=== PATIENT | male | born 1980 | race Caucasian/White ===

== ENCOUNTER 2018-08-15 16:53 | Outpatient (REF) | payer OTHER, SELFPAY ==
[2018-08-15 22:12] LABS: CREATININE 1.07 mg/dL (0.70-1.30)
== END 2018-08-15 17:13 ==
LOC: NCHCN 16:53
PROVIDERS: PCP Nurse Practitioner Family; Visit Provider Nurse Practitioner Family
DX: M54.6 Pain in thoracic spine (principal); I10 Essential (primary) hypertension; K30 Functional dyspepsia; G25.81 Restless legs syndrome; E66.9 Obesity, unspecified
CPT/HCPCS: 82565

== ENCOUNTER → 2020-09-13 10:10 | Outpatient (REF) | payer OTHER, SELFPAY ==
[2020-09-13 14:31] LABS: Hemoglobin A1C 5.7 % (<5.7)
[2020-09-13 14:44] LABS: ALT 188 U/L (16-63); AST 75 U/L (15-37); Albumin 4.2 g/dL (3.4-5.0); Alkaline Phosphatase 93 U/L (46-116); Anion Gap 11.5 mmol/L (3-11); BUN 17 mg/dL (7-18); Bilirubin, Total 0.6 mg/dL (0.2-1.0); CO2 29.5 mmol/L (21.0-32.0); CREATININE 0.95 mg/dL (0.70-1.30); Calcium 9.4 mg/dL (8.5-10.1); Calculated LDL 186 mg/dL (<100); Chloride 97 mmol/L (98-107); Cholesterol 232 mg/dL (<200); Glucose 97 mg/dL (74-106); HDL Cholesterol 25 mg/dL (40-60); Potassium 3.7 mmol/L (3.5-5.1); Sodium 138 mmol/L (136-145); Total Protein 7.8 g/dL (6.4-8.2); Triglyceride 109 mg/dL (<150)
[2020-09-15 14:30] LABS: HIV-1/2 Ag & Ab Screen Negative (Negative)
[2020-09-16 10:09] LABS: Hepatitis C Ab w Rflx HCV PCR Negative (Negative)
== END ==
LOC: NCHCN 10:10
PROVIDERS: PCP Nurse Practitioner Family; Visit Provider Nurse Practitioner Family
DX: R07.9 Chest pain, unspecified (principal); I10 Essential (primary) hypertension; K30 Functional dyspepsia; F41.8 Other specified anxiety disorders; G25.81 Restless legs syndrome; E66.9 Obesity, unspecified; Z11.4 Encounter for screening for human immunodeficiency virus [HIV]
CPT/HCPCS: 80053; 80061; 86803; 87389; 83036

== ENCOUNTER → 2020-09-19 13:57 | Outpatient (REF) | payer OTHER, SELFPAY ==
[2020-09-23 11:20] LABS: Hepatitis A Antibody IgM Negative (Negative); Hepatitis B Core Antibody Negative (Negative); Hepatitis B surface Ag Negative (Negative); Hepatitis C Ab w Rflx HCV PCR Negative (Negative)
== END ==
LOC: NCHCN 13:57
PROVIDERS: PCP Nurse Practitioner Family; Visit Provider Nurse Practitioner Family
DX: R79.89 Other specified abnormal findings of blood chemistry (principal)
CPT/HCPCS: 86704; 86709; 86803; 87340

== ENCOUNTER 2020-09-27 03:01 | Outpatient (CLI) | payer OTHER, SELFPAY ==
--- NOTE | 2020-09-27 | DI.US_ITS ---
EXAM: US ABDOMEN CLINICAL HISTORY: ELEVATED LFT'S,HYPERLIPIDEMIA,PREDIABETES,R79.89,E78.5 TECHNIQUE: Ultrasound of complete upper abdomen performed using standard protocol. COMPARISON: No exams were available for comparison FINDINGS: There is no ascites evident. LIVER: There is diffusely hyperechoic indicate fatty parenchymal changes as steatosis. There are no discrete focal hepatic lesions evident on these images. GALLBLADDER/BILIARY: There are no gallstones. No gallbladder wall edema nor pericholecystic fluid. The common hepatic duct isnot dilated, measuring 3-4mm at the level of gail hepatis. PANCREAS: There is no evidence of pancreatic mass nor dilatation of the pancreatic duct. SPLEEN: Spleen size is upper normal-minimally prominent, measuring 13 millimeters. No intrasplenic l esions noted. No perisplenic fluid. KIDNEYS:Kidneys exhibit normal size with no evidence of solid mass, calculus, nor hydronephrosis. No cortical cysts evident. ABDOMINAL AORTA: There is no evidence of abdominal aortic aneurysm. IVC: Normal diameter where visualized. IMPRESSION: 1. No evidence of cholelithiasis nor dilatation of the biliary tree. 2. Spleen size is upper normal-minimally prominent. 3. Hepatic steatosis. Correlation with appropriate hepatic blood work noted. There is no ascites. DATA REPOSITORY:
== END 2020-09-27 03:21 ==
PROVIDERS: PCP Nurse Practitioner Family; Visit Provider Nurse Practitioner Family
DX: K76.0 Fatty (change of) liver, not elsewhere classified (principal); E78.5 Hyperlipidemia, unspecified; R73.03 Prediabetes
CPT/HCPCS: 76700

== ENCOUNTER 2022-10-07 16:11 | Emergency (ER) | payer OTHER, SELFPAY ==
[2022-10-07 16:13] VITALS: BP 205/138; PULSE 104; RESP 17; TEMP 36.8; O2SAT 98
--- NOTE | 2022-10-07 16:15 | DI.RAD_ITS ---
Exam(s) XR SHOULDER RT COMPLETE 2+V EXAM: XR SHOULDER RT COMPLETE 2+V CLINICAL HISTORY: lateral pain. TECHNIQUE: 2D digital imaging was performed. COMPARISON: No exams were available for comparison FINDINGS: Four views: Glenohumeral joint is intact. No fracture or dislocation. No abnormal soft tissue calcifications in the subacromial space is normal. However, there is dislocation of the AC joint. No clavicle nor ac romial fracture. No incidental osseous lesions. IMPRESSION: Dislocated AC joint. Glenohumeral joint unremarkable. DATA REPOSITORY: RADIATION DOSE DELIVERED:
--- NOTE | 2022-10-07 16:15 | DI.RAD_ITS ---
Exam(s) XR RIBS RT W PA LAT CHEST EXAM: XR RIBS RT W PA LAT CHEST CLINICAL HISTORY: R anterior pain after fall TECHNIQUE: 2D digital imaging was performed. COMPARISON: No exams were available for comparison FINDINGS: RIBS 5 VIEWS-right There are no obvious acute rib fractures evident. No lytic rib lesions identified. Right AC joint d islocation. CXR- 2 VIEWS: No lung contusion or pneumothorax. There is no pleural effusion evident. Heart size is normal and there is no significant mediastinal widening. IMPRESSION: 1. No obvious rib fractures evident. Also no significant rib lesions. Right AC joint is dislocated. 2. No ipsilateral lung nor pleural abnormality evident. No pneumothorax. DATA REPOSITORY: RADIATION DOSE DELIVERED:
--- NOTE | 2022-10-07 16:25 | ED.GENADUL_ITS ---
Discharge Plan Disposition Patient Disposition: Home Condition: Improving Discharge Details Clinical Impression: Separation of right acromioclavicular joint, type 3 Primary Care Provider: Jessica Lynne ED Provider: Shimon Brink Home Meds and New Rx's Prescriptions: New hydrocodone-acetaminophen 5-325 mg tablet 1 tab PO Q8H PRN (Reason: pain) Qty: 7 0RF Rx Instructions: No alcohol, driving, or additional Tylenol with this medication Continued metoprolol succinate 100 mg tablet extended release 24 hr 1 tab PO DAILY Label Comments: TAKE 1 TABLET BY MOUTH EVERY DAY chlorthalidone 25 mg tablet 1 tab PO DAILY Label Comments: TAKE 1 TABLET BY MOUTH EVERY DAY omeprazole 20 mg capsule,delayed release(DR/EC) 1 cap PO DAILY Discharge Instructions Instructions: Shoulder Separation Exercises (GEN) Additional Instructions: Apply ice 20 minutes at a time to reduce pain and swelling. Wear sling while awake and out of bed. He may remove for sleeping and showering. See enclosed work note. We will refer you to the orthopedic clinic for follow-up. The office #[id number]. Continue ibuprofen as needed for pain with the provided hydrocodo ne/acetaminophen as needed for severe or breakthrough pain. You may substitute Tylenol instead of the hydrocodone. Return for any acute concern. Medical Decision Making This is a 42-year-old male who was snowboarding with his children yesterday, caught an edge and drove his right shoulder and chest to the ground. He did not have a loss of consciousness, he did continue to snowboard with some pain. He developed worsening pain and stiffness last night for which he has been taking Tylenol and ibuprofen. Now with right anterior/lateral shoulder pain and right anterior chest pain that is reproducible with palpation. Differential diagnosis includes contusion, fracture, sprain, must exclude pneumothorax. Patient referred for x-ray: Chest x-ray with rib views shows no acute bony fracture or other significant finding. Please see the formal report. X-ray of right shoulder shows grade 3 AC joint separation. Patient placed in sling. Counseled as to anticipated course of healing. I do question whether he may have partial rotator cuff injury as well. Will refer to orthopedics. He is consented for the use of a small number of narcotic analgesics. He is stable and appropriate for discharge to home. HPI General Mode of arrival: ambulatory . Date/Time Provider Initiated Documentation: 10/07/22 16:15 . Limitations to Documentation: no limitations . Information obtained by: patient . History of Present Illness 42 year old M presents to the emergency department with the chief complaint of Right shoulder and right anterior chest pain after snowboarding fall yester, described as moderate, Quality is described as dull and constant, and is localized to the right and upper extremity. Patient reports no radiation. Patient started experiencing this hour(s) and it has been constant. No relieving factors improve symptom(s), Movement worsens symptoms . Patient notes no other symptoms. and chest pain; denies headaches, shortness of breath, syncope and weakness. Patient did receive the following treatments prior to arrival, NSAID Related Data Home Medications Medication Instructions Recorded Confirmed chlorthalidone 25 mg tablet 1 tab PO DAILY 10/07/22 10/07/22 hydrocodone 5 mg-acetaminophen 325 1 tab PO Q8H PRN pain #7 tabs 10/07/22 mg tablet metoprolol succinate 100 mg 1 tab PO DAILY 10/07/22 10/07/22 tablet,extended release 24 hr omeprazole 20 mg capsule,delayed 1 cap PO DAILY 10/07/22 10/07/22 release Previous Rx's Medication Instructions Recorded hydrocodone 5 mg-acetaminophen 325 1 tab PO Q8H PRN pain #7 tabs 10/07/22 mg tablet Allergies Allergy/AdvReac Type Severity Reaction Status Date / Time Penicillins Allergy Mild Hives Unverified 10/07/22 16:18 General Stated Complaint: Orthopedic EFRAIN: 3 Review of Systems Narrative: 8 systems reviewed and otherwise negative PFSH All Active Problems (Updated 10/07/22 @ 17:53 by Shimon Brink MD) Separation of right acromioclavicular joint, type 3 (Acute) Social History Smoking/Tobacco Use Status: Never Smoking risk assessment performed?: Yes Alcohol Intake: current Alcohol Intake frequency: a few times a month Drug use: Daily Substance use type: marijuana Do you feel safe in your relationship?: Yes Exam Narrative Exam Narrative: GEN: awake, alert, oriented 3. Pleasant, well groomed, interactive. HEAD: Normocephalic, atraumatic ENT: Mucous membranes moist, oropharynx unremarkable, External ear exam unremarkable EYES: PERRL, EOMI NECK: Full ROM, no RONAK, no menigismus CHEST/RESP: Right anterior tenderness to palpation, no crepitus, clear to auscultation bilateral, no wheeze/rhonchi/rales CARDIOVASCULAR: RRR, no murmur, rub aracely. 2+ Rad pulse bilateral ABDOMEN: Soft, nontender, no mass. +Bowel sounds EXT: Full ROM, pain with full arm extension and AB duction laterally on the right. Pain is at the supraspinatus. Pain with palpation right AC joint. Left upper extremity unremarkable Neuro: Grossly normal neurologic exam, conversant, interactive. Psych: Speech fluent, thoughts congruent, affect normal Course Vital Signs Vital signs: Vital Signs Temperature 36.8 C 10/07/22 16:13 Pulse 104 H 10/07/22 16:13 Respiratory Rate 17 10/07/22 16:13 Blood Pressure 205/138 H 10/07/22 16:13 Pulse Oximetry 98 10/07/22 16:13 Temperature 36.8 C 10/07/22 16:13 Temperature Source Tympanic 10/07/22 16:13 Pulse 104 H 10/07/22 16:13 Respiratory Rate 17 10/07/22 16:13 Respiratory Effort 10/07/22 16:16 Blood Pressure 205/138 H 10/07/22 16:13 Blood Pressure Position Sitting 10/07/22 16:13 Pulse Oximetry 98 10/07/22 16:13 Oxygen Delivery Method Room Air 10/07/22 16:13 Oxygen Flow Rate 0 10/07/22 16:13 Pain Level 8 10/07/22 16:21 PAWSS Have you Been Recently Intoxicated or Drunk Within the Last 30 days?: No Have you Ever Experienced Previous Episodes of Alcohol Withdrawal?: No Have you ever Experienced Withdrawal Seizures?: No Have you ever Experienced Delirium Tremens(DT)s?: No Have you ever undergone Alcohol Rehabilitation Treatment (i.e, inpt ot outpa tient treatment programs)?: No Have you ever Experienced Blackouts?: No Have you ever Combined Alcohol with other Downers within the last 90 days?: No Have you ever Combined Alcohol with any other Substance of Abuse during the last 90 days?: No Result: 0
--- NOTE | 2022-10-07 17:29 | DI.VRAD_ITS ---
Addendum created by Samantha Arellano MD on 10/07/2022 6:22:29 PM EST: Title of the ribs examination should be: XR Right Ribs , 4 images were obtained. Initial report created on 10/07/2022 5:28:59 PM EST: PROCEDURE INFORMATION: Exam: XR Left Ribs Exam date and time: 10/07/2022 4:42 PM Clinical indication: Injury or trauma; Blunt trauma (contusions or hematomas); Injury date: 10/07/2022; Injury details: PT states he fell snowboarding TECHNIQUE: Imaging protocol: Radiologic exam of the Left ribs. Views: 2 views. COMPARISON: No relevant prior studies available. FINDINGS: Bones/joints: No acute fracture. Soft tissues: No large subcutaneous soft tissue abnormality seen. IMPRESSION: No acute findings. PROCEDURE INFORMATION: Exam: XR Chest Exam date and time: 10/07/2022 4:42 PM Age: 42 years old Clinical indication: Injury or trauma; Blunt trauma (contusions or hematomas); Injury date: 10/07/2022; Injury details: PT states he fell snowboarding TECHNIQUE: Imaging protocol: Radiologic exam of the chest. Views: 2 views. COMPARISON: No relevant prior studies available. FINDINGS: Lungs: Unremarkable. No consolidation. Pleural spaces: Unremarkable. No pleural effusion. No pneumothorax. Heart/Mediastinum: Unremarkable. No cardiomegaly. Bones/joints: Unremarkable. IMPRESSION: No acute findings. Dictated and Authenticated by: Samantha Arellano MD. Ordering:ELISE Robins MD
--- NOTE | 2022-10-07 17:45 | DI.VRAD_ITS ---
PROCEDURE INFORMATION: Exam: XR Right Shoulder Exam date and time: 10/07/2022 4:45 PM Age: 42 years old Clinical indication: Injury or trauma; Blunt trauma (contusions or hematomas); Shoulder; Right; Injury date: 10/07/2022; Injury details: PT states he fell snowboarding TECHNIQUE: Imaging protocol: Radiologic exam of the Right shoulder. Views: 2 or more views. COMPARISON: CR XR RIBS RT PA CHEST 3V 10/07/2022 4:42 PM FINDINGS: Bones/joints: There is dislocation of the acromioclavicular joint with superior displacement of the distal clavicle. These findings suggest likely injury to the acromioclavicular and coracoclavicular ligaments (type III injury). There is widening at the acromioclavicular joint measuring approximally 12 mm. No acute fracture. The glenohumeral joint is intact without dislocation. Soft tissues: Edema noted in the supraclavicular region. IMPRESSION: 1. Acromioclavicular joint dislocation as described (type III injury). 2. The glenohumeral joint is intact. 3. No acute fracture. Dictated and Authenticated by: Samantha Arellano MD. Ordering:ELISE Robins MD
[2022-10-07 18:01] VITALS: BP 187/132; PULSE 102; RESP 15; O2SAT 92
--- NOTE | 2022-10-19 11:03 | NUR.NOTE ---
Nursing Note: Patient called asking if he could come in to the ED to get a return to work note for today. He has a shoulder separation. Called [facility] and they stated that he was a no show for his first appt, and that he is on the schedule for this Wed. I called the patient back and told him that he can come in to the ED and we would evaluate him and determine the return to work, he can call his PCP, and he could also go to [facility]. He is aware.
== END 2022-10-07 18:07 | disposition home or self-care (01) ==
PROVIDERS: Emergency Provider Emergency Medicine; PCP Nurse Practitioner Family
DX: S43.101A Unspecified dislocation of right acromioclavicular joint, initial encounter (principal); V00.311A Fall from snowboard, initial encounter; R07.89 Other chest pain
CPT/HCPCS: 99284; 71046; 71100; 73030

== ENCOUNTER 2022-10-21 11:50 | Outpatient (CLI) | payer OTHER, SELFPAY ==
--- NOTE | 2022-10-21 11:30 | DI.RAD_ITS ---
Exam(s) XR CLAVICLE RT EXAM: XR CLAVICLE RT CLINICAL HISTORY: separation of right acromioclavicular joint f/u TECHNIQUE: 2D digital imaging was performed of the right clavicle. Two images were obtained. AP and axial views were obtained. COMPARISON: CR,XR XR SHOULDER RT COMPLETE 2+V from 10/07/2022 FINDINGS: BONES: No acute fracture is present. No bony destructive lesion is seen. JOINTS: There is a persistent right AC joint separation. Degenerative changes are seen at the acromi oclavicular joint. SOFT TISSUE: Normal IMPRESSION: Persistent right AC joint separation. DATA REPOSITORY: RADIATION DOSE DELIVERED:
== END 2022-10-21 11:51 | disposition home or self-care (01) ==
LOC: DIORS 11:50
PROVIDERS: PCP Nurse Practitioner Family; Referring Provider Nurse Practitioner Family; Visit Provider Student in an Organized Health Care Education/Training Program
DX: S43.151A Posterior dislocation of right acromioclavicular joint, initial encounter (principal); X58.XXXA Exposure to other specified factors, initial encounter
CPT/HCPCS: 73000

== ENCOUNTER 2023-04-18 08:32 | Emergency (ER) | payer SELFPAY ==
[2023-04-18 08:38] VITALS: BP 212/109; PULSE 108; RESP 18; TEMP 36.7; O2SAT 97
--- NOTE | 2023-04-18 09:00 | DI.CT_ITS ---
Exam(s) CT UPPER EXTREMITY LT W EXAM: CT UPPER EXTREMITY LT W CLINICAL HISTORY: left forearm dog bite, induranted, purulent, 10 da TECHNIQUE: Imaging Protocol: Axial computed tomography images with coronal and sagittal reformatted images were created and reviewed. CONTRAST MATERIAL: Intravenous: Omnipaque 350 Contrast volume:structured data in ml Contrast route:I V - Oral: yes / no COMPARISON: No exams were available for comparison FINDINGS: SOFT TISSUES: There is subcutaneous edema in the forearm, most prominent dorsally. There is also an area of skin irregularity which is probably the site of the dog bite. No calcification nor other rad iopaque foreign body evident at this level no formed abscess at this level. There is deep fluid between the muscle layers of the distal volar forearm, proximal to the wrist. Th is measures approximately 3 cm wide by 0.7 cm thick. There does not appear to be rim enhancement of this fluid and there is no gas at this level nor elsewhere in the soft tissues. Nevertheless cannot exclude abscess at this level. This is remote from the bite area which is on the dorsal aspect of th e forearm. IMPRESSION: There is skin irregularity and abundant subcutaneous edema in the dorsal forearm, consistent with dog bite as per history. There is no radiopaque foreign body at this level nor elsewhere in the forearm . There is a 3 x 0.7 cm myofascial level fluid collection between deep muscle layers in the volar dista l forearm. Although there is no rim enhancement of this collection nor gas therein, the possibility of abscess at this level is a consideration close follow-up is recommended. No fractures and no evidence of osteomyelitis. RADIATION DOSE DELIVERED: 338.57mGy.cm Total DLP DATA REPOSITORY: All CT scans at this facility are submitted to the National Radiology Data Registry (NRDR) Dose Index Registry (DIR) with the [employer] (A[employer]). RADIATION OPTIMIZATION: All CT scans at this facility use at least one of these dose optimization te chniques: automated exposure control; mA and/or kV adjustment per patient size (includes targeted exa ms where dose is matched to clinical indication); or iterative reconstruction.
[2023-04-18 09:35] LABS: Abs Immature Grans 0.05 10^3/uL (0.0-0.06); Absolute Basophil Count 0.05 10^3/uL (0.0-0.2); Absolute Eosinophil Count 0.06 10^3/uL (0.0-0.7); Absolute Lymphocyte Count 1.64 10^3/uL (1.2-3.4); Absolute Monocyte Count 0.62 10^3/uL (0.1-0.8); Absolute Neutrophil Count 5.84 10^3/uL (1.2-6.7); Basophils % 0.6; Eosinophils % 0.7; HCT 39.5 % (40.0-50.0); HGB 13.4 g/dL (13.5-17.5); Immature Grans % 0.6; Lactate 0.9 mmol/L (0.6-1.4); Lymphocytes % 19.9; MCH 29.1 pg (27.0-33.0); MCHC 33.9 % (32.0-36.0); MCV 86 fL (80-95); MPV 9.4 fL (8.0-11.0); Monocytes % 7.5; Neutrophils % 70.7; Platelet Count 355 10^3/uL (130-400); RDW 12.1 % (11.8-14.1); RDW-SD 38.3 fL; WBC 8.26 10^3/uL (4.4-10.8)
[2023-04-18] MEDS: Omnipaque 350 MG/ML 100 ML BTL IJ (09:37)
--- NOTE | 2023-04-18 09:37 | ED.GENADUL_ITS ---
Discharge Plan Disposition Patient Disposition: Against Medical Advice Discharge Details Clinical Impression: Abscess, Cellulitis, Dog bite Primary Care Provider: Jessica Lynne ED Provider: Bri Rosenbaum Home Meds and New Rx's Prescriptions: New cefuroxime axetil 500 mg tablet 500 mg PO Q12H Qty: 20 0RF metronidazole 500 mg tablet 500 mg PO Q8H Qty: 30 0RF Continued metoprolol succinate 100 mg tablet extended release 24 hr 1 tab PO DAILY Patient Comments: TAKE 1 TABLET BY MOUTH EVERY DAY chlorthalidone 25 mg tablet 1 tab PO DAILY Patient Comments: TAKE 1 TABLET BY MOUTH EVERY DAY omeprazole 20 mg capsule,delayed release(DR/EC) 1 cap PO DAILY hydrocodone-acetaminophen 5-325 mg tablet 1 tab PO Q8H PRN (Reason: pain) Qty: 7 0RF Rx Instructions: No alcohol, driving, or additional Tylenol with this medication Discharge Instructions Instructions: Animal Bite (ED), Cellulitis (ED), Abscess (ED) Additional Instructions: You are leaving against our medical recommendation, please take the cefuroxime and Flagyl as prescribed, I do recommend admission and surgical reassessment Please return at your earliest ability Referrals: Jessica Lynne [Primary Care Provider] - Discharge Data Discharge Date/Time-TO BE ENTERED AT DEPARTURE: 04/18/23 11:36 Medical Decision Making This 43-year-old gentleman presents 10 days post dog bite, he broke up a dog fight between his 2 dogs were vaccinated He states he is concerned as the wounds are not healing and they are more tender and firm He also does not have insurance and this is his primary concern Secondary to the injuries and his exam, I did order CT which shows evidence 3 cm abscess over the volar aspect over the area of significant tenderness, mild decreased range of motion Recommendation for admission to the hospital, consultation with Dr. Herrera, orthopedist he recommends medicine admission with surgical consultation I talked to patient about admission, he has declined, he states he has too much going on in his life and is unable to stay at this time, he tells me he will return in 4 hours for readmission He is aware that he is at risk for losing his extremity and becoming significantly more ill Blood cultures are pending Wound cultures pending Secondary to Pasteurella risk, cefuroxime and Flagyl were initiated as patient does have penicillin allergy Dressings were applied, tetanus is up-to-date Patient is aware he is leaving AGAINST MEDICAL ADVICE, he is fully alert, oriented, of decisional capacity Diagnostic labs are reassuring, CRP of 2, no leukocytosis Medical Records Medical records reviewed: Yes I reviewed the patient's medical records. Lab Data Lab results reviewed: Yes I reviewed the patient's lab results. HPI General Date/Time Provider Initiated Documentation: 04/18/23 08:55 . HPI Narrative: This 43-year-old male presents with report of dog bite 10 days prior to arrival. States that he has not received medical care secondary to lack of insurance. He states become progressively more painful. He denies any fever or chills. Denies any shortness of breath. Denies any fever. States that he is concerned there may be tendon involvement as he thought he saw a tendon overlying his flexor surface adjacent to his fifth digit on his hand. He states that his tetanus is up-to-date. He does state he took an unknown antibiotic for 3 days that he had at home but has not taken it for approximately 7 days. Related Data Home Medications Medication Instructions Recorded Confirmed chlorthalidone 25 mg tablet 1 tab PO DAILY 10/07/22 10/21/22 hydrocodone 5 mg-acetaminophen 325 1 tab PO Q8H PRN pain #7 tabs 10/07/22 10/21/22 mg tablet metoprolol succinate 100 mg 1 tab PO DAILY 10/07/22 10/21/22 tablet,extended release 24 hr omeprazole 20 mg capsule,delayed 1 cap PO DAILY 10/07/22 10/21/22 release cefuroxime axetil 500 mg tablet 500 mg PO Q12H #20 tabs 04/18/23 metronidazole 500 mg tablet 500 mg PO Q8H #30 tabs 04/18/23 Previous Rx's Medication Instructions Recorded hydrocodone 5 mg-acetaminophen 325 1 tab PO Q8H PRN pain #7 tabs 10/07/22 mg tablet cefuroxime axetil 500 mg tablet 500 mg PO Q12H #20 tabs 04/18/23 metronidazole 500 mg tablet 500 mg PO Q8H #30 tabs 04/18/23 Allergies Allergy/AdvReac Type Severity Reaction Status Date / Time Penicillins Allergy Mild Hives Unverified 10/21/22 11:40 General Stated Complaint: Laceration EFRAIN: 3 PFSH All Active Problems (Updated 04/18/23 @ 11:11 by SHONA Mendez) Abscess (Acute) Cellulitis (Acute) Dog bite (Acute) No-show for appointment (Acute) Social History Smoking/Tobacco Use Status: Never Smoking risk assessment performed?: Yes Alcohol Intake: current Alcohol Intake frequency: a few times a month Drug use: Occasionally Substance use type: marijuana and crack/cocaine Current gender identity: male Do you feel safe at home: Yes Do you feel safe in your relationship?: Yes Exam Extrem Elbow/forearm/wrist images: 1. 1 inch laceration 2. 3 inch laceration, purulent drainage, erythema, inudration 3. 5 inch laceration, induration, erythema 4. 1 inch laceration , 4 inches of induration and tenderness Other: distal pulses,strength and sensation intact Course Vital Signs Vital signs: Vital Signs Temperature 36.7 C 04/18/23 08:38 Pulse 108 H 04/18/23 08:38 Respiratory Rate 18 04/18/23 08:38 Blood Pressure 212/109 H 04/18/23 08:38 Pulse Oximetry 97 04/18/23 08:38 Temperature 36.7 C 04/18/23 08:38 Temperature Source Temporal Artery Scan 04/18/23 08:38 Pulse 108 H 04/18/23 08:38 Respiratory Rate 18 04/18/23 08:38 Blood Pressure 212/109 H 04/18/23 08:38 Blood Pressure Position Sitting 04/18/23 08:38 Pulse Oximetry 97 04/18/23 08:38 Oxygen Delivery Method Room Air 04/18/23 08:38 Oxygen Flow Rate 0 04/18/23 08:38 Lab/Test Results Lab/Test Results: 04/18/23 09:28 Blood Blood Culture - Pending 04/18/23 09:08 Blood Blood Culture - Pending
[2023-04-18] MEDS: Normal Saline Flush 10 ML SYR IVP (09:40)
[2023-04-18] MEDS: Normal Saline - Diluent 50 ML VIAL IJ (09:40)
[2023-04-18 09:54] LABS: ALT 63 U/L (16-63); AST 41 U/L (15-37); Albumin 3.7 g/dL (3.4-5.0); Alkaline Phosphatase 100 U/L (46-116); Anion Gap 11.8 mmol/L (3-11); BUN 15 mg/dL (7-18); Bilirubin, Total 0.9 mg/dL (0.2-1.0); C-Reactive Protein 2.01 mg/dL (0.0-0.3); CO2 27.2 mmol/L (21.0-32.0); Calcium 9.1 mg/dL (8.5-10.1); Chloride 103 mmol/L (98-107); Estimated GFR 96.97 (mL/min/1.73m2); Glucose 197 mg/dL (74-106); Potassium 3.4 mmol/L (3.5-5.1); Sodium 142 mmol/L (136-145); Total Protein 7.8 g/dL (6.4-8.2)
[2023-04-18] MEDS: Valsartan 80 MG TAB 160 MG PO (10:05)
[2023-04-18] MEDS: Chlorthalidone 25 MG TAB PO (10:05)
--- NOTE | 2023-04-18 10:22 | DI.VRAD_ITS ---
PROCEDURE INFORMATION: Exam: CT Left Upper Extremity With Contrast, Forearm Exam date and time: 04/18/2023 9:44 AM Age: 43 years old Clinical indication: Other: Left forearm dog bite, induranted, purulent, 10 da TECHNIQUE: Imaging protocol: Computed tomography of the left upper extremity with contrast. Exam focused on the forearm. Radiation optimization: All CT scans at this facility use at least one of these dose optimization techniques: automated exposure control; mA and/or kV adjustment per patient size (includes targeted exams where dose is matched to clinical indication); or iterative reconstruction. Contrast material: OMNIPAQUE 350; Contrast volume: 100 ml; Contrast route: INTRAVENOUS (IV); COMPARISON: No relevant prior studies available. 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 Heterotopic ossification adjacent to the lateral joint line is likely due to sequelae of chronic injury and lateral epicondylitis. Soft tissues: Stubcutaneous edema about the forearm, most marked dorsal to the ulna. Skin irregularity and cutaneous edema of the dorsal aspect of the distal forearm. This would be consistent with the history of dog bite. There is dense subcutaneous edema deep to the area of skin irregularity but no subcutaneous fluid collection is identified. Myofascial fluid which is non loculated and located superficial to the flexor indices tendons and muscles at the myotendinous junction, proximal to the carpal tunnel in the distal forearm. This is on the volar aspect of the distal forearm. This is not have a peripherally enhancing wall but could be due to a developing abscess. It measures approximately 3 by 4 by 1 cm in craniocaudad, transverse, and AP dimension. See axial series 2, images 114 through 125, coronal series 6 images 24-27. This is remote from the cutaneous abnormality in the region of the original injury. IMPRESSION: 1. Skin irregularity and subcutaneous edema in the dorsal distal forearm consistent with history of dog bite 2. 3 cm loculated myofascial fluid collection superficial to the flexor indices tendons on the volar aspect of the forearm could be a developing abscess and should be correlated with clinical scenario. THIS REPORT CONTAINS FINDINGS THAT MAY BE CRITICAL TO PATIENT CARE. The findings were verbally communicated via telephone conference with Dr. Walter at 10:20 AM EDT on 04/18/2023. The findings were acknowledged and understood. Dictated and Authenticated by: Ro Gunderson MD. Ordering:AYLIN Gregory MD
[2023-04-18] MEDS: metroNIDAZOLE 500 MG TAB PO (11:19)
[2023-04-18] MEDS: Cefuroxime 500 MG TAB PO (11:19)
[2023-04-18 11:34] VITALS: BP 169/130; PULSE 99; RESP 14; TEMP 36.4; O2SAT 96
--- NOTE | 2023-04-18 11:37 | NUR.NOTE ---
Nursing Note: Per MD order, pt's lacerations cleansed with impregnated scrub sponge and rinsed with sterile NS. Bacitracin applied to lacerations after wounds were cleaned. Non-adherent telfa gauze applied to lacerations. Telfa gauze pads secured in place with a gauze wrap; gauze wrap secured with tape. Pt denied pain, numbness or tingling s/p application of dressing.
--- NOTE | 2023-04-19 11:39 | W.ED.FU ---
Follow Up Plan: Patient notified regarding MRSA positive wound culture, of note patient has left this facility twice and they in a single day Will need to switch antibiotics after review of [facility] guide to doxycycline and Flagyl, cefuroxime will be discontinued Patient made aware, very argumentative on the phone, prescription sent to pharmacy
--- NOTE | 2023-04-20 13:23 | NUR.NOTE ---
04/20/23 1320 spoke with Francisco Jeong, health officer for [place]. Fax machine at [facility] not working but was emailed to him at: [email or web address] He will follow up. Nursing Note:
== END 2023-04-18 11:36 | disposition left against medical advice (07) ==
PROVIDERS: Emergency Provider Physician Assistant; PCP Nurse Practitioner Family
DX: S51.852A Open bite of left forearm, initial encounter (principal); L03.114 Cellulitis of left upper limb; A49.02 Methicillin resistant Staphylococcus aureus infection, unspecified site; L02.414 Cutaneous abscess of left upper limb; Z53.29 Procedure and treatment not carried out because of patient's decision for other reasons; W54.0XXA Bitten by dog, initial encounter; Y93.K9 Activity, other involving animal care; Y92.89 Other specified places as the place of occurrence of the external cause; Y99.9 Unspecified external cause status
CPT/HCPCS: 36415; 80053; 87040; 87077; 99285; 73201; 83605; 85025; 86140; 87070; 87186; 87205; 99283; J3490

== ENCOUNTER 2023-04-18 20:58 | Inpatient (IN) | payer SELFPAY ==
[2023-04-18 21:01] VITALS: BP 184/109; PULSE 97; RESP 16; TEMP 36.4; O2SAT 98
[2023-04-18] MEDS: CLINDAMYCIN 600 MG/50 ML BAG 100 MG IVPB (21:21)
--- NOTE | 2023-04-18 21:21 | ED.GENADUL_ITS ---
Discharge Plan Disposition Patient Disposition: Admit to [facility] Discharge Details Clinical Impression: Hypertension, Dog bite of left forearm with infection, Cellulitis of left forearm, Abscess of left forearm Admit Date/Time: 04/18/23 21:25 Admit Provider: Teresita Matthews Attending Provider: Teresita Matthews Primary Care Provider: Jessica Lynne ED Provider: Cj Martell Medical Decision Making Patient presenting to the emergency department for admission for dog bite to left upper extremity. Patient was seen in the emergency department earlier today and had labs, wound culture, and blood cultures all performed along with CT imaging of the forearm. There was a abscess that was viewed and the on-call orthopedist recommended admission with IV antibiotics and surgical consult tomorrow. Patient could not be admitted at that time and left AGAINST MEDICAL ADVICE but is now returning for admission. Patient denies any change in condition. Physical exam shows significant lacerations with erythema and purulent drainage to the left forearm. Patient has full range of motion of left forearm but does have significant tenderness with any movement of wrist or rotation. Pulse and sensation is intact exam is otherwise nondiagnostic. Patient stated he got antibiotic earlier in the day but has not taken anything since. Patient was started on clindamycin and Cipro pending cultures. Given plan was already established I did contact hospitalist Dr. Matthews who agreed to admit patient. Medical Records Medical records reviewed: Yes I reviewed the patient's medical records. Medical records narrative: Reviewed previous emergency department visit Lab Data Lab results reviewed: Yes I reviewed the patient's lab results. HPI General Mode of arrival: ambulatory . Date/Time Provider Initiated Documentation: 04/18/23 20:59 . Limitations to Documentation: no limitations . Information obtained by: patient, RN notes reviewed and old records reviewed . History of Present Illness 43 year old M presents to the emergency department with the chief complaint of Left arm infection, described as severe, Patient started experiencing this day(s) (10) and it has been constant. No relieving factors improve symptom(s), No exacerbating factors reported . Patient notes no other symptoms.. Related Data Home Medications Medication Instructions Recorded Confirmed chlorthalidone 25 mg tablet 1 tab PO DAILY 10/07/22 04/18/23 hydrocodone 5 mg-acetaminophen 325 1 tab PO Q8H PRN pain #7 tabs 10/07/22 10/21/22 mg tablet metoprolol succinate 100 mg 1 tab PO DAILY 10/07/22 10/21/22 tablet,extended release 24 hr omeprazole 20 mg capsule,delayed 1 cap PO DAILY 10/07/22 10/21/22 release cefuroxime axetil 500 mg tablet 500 mg PO Q12H #20 tabs 04/18/23 metronidazole 500 mg tablet 500 mg PO Q8H #30 tabs 04/18/23 valsartan 160 mg tablet mg 04/18/23 04/18/23 Previous Rx's Medication Instructions Recorded hydrocodone 5 mg-acetaminophen 325 1 tab PO Q8H PRN pain #7 tabs 10/07/22 mg tablet cefuroxime axetil 500 mg tablet 500 mg PO Q12H #20 tabs 04/18/23 metronidazole 500 mg tablet 500 mg PO Q8H #30 tabs 04/18/23 Allergies Allergy/AdvReac Type Severity Reaction Status Date / Time Penicillins Allergy Mild Hives Unverified 10/21/22 11:40 General Stated Complaint: AnimalBite EFRAIN: 3 Review of Systems Constitutional Constitutional: Denies chills and Denies fever(s) Musculoskeletal Musculoskeletal: Reports as per HPI, Reports joint swelling, Reports limited range of motion, Denies numbness and Denies tingling Integumentary/Breasts Skin/Breast: Reports as per HPI Neurologic Neurologic: Denies numbness and Denies tingling PFSH All Active Problems Discharge planning issues (Acute) DVT prophylaxis (Acute) Obesity, morbid, BMI 40.0-49.9 (Acute) GERD (gastroesophageal reflux disease) (Chronic) Hypertension (Chronic) Hypokalemia (Acute) Abscess of left forearm (Acute) Dog bite of left forearm with infection (Acute) Cellulitis of left forearm (Acute) Abscess (Acute) Cellulitis (Acute) Dog bite (Acute) No-show for appointment (Acute) Social History Smoking/Tobacco Use Status: Never Smoking risk assessment performed?: Yes Alcohol Intake: current Alcohol Intake frequency: a few times a month Drug use: Occasionally Substance use type: marijuana and crack/cocaine Housing: house Current gender identity: male Do you feel safe at home: Yes Do you feel safe in your relationship?: Yes Exam Const General: cooperative, no acute distress and not ill appearing Orientation: alert, awake and oriented x3 HENMT Mouth: moist mucous membranes Resp Effort & Inspection: normal respiratory effort, able to speak in complete sentences and no respiratory distress Cardio Rate: regular rate Rhythm: regular rhythm Pulses: normal peripheral pulses Neuro General: patient alert, patient awake, patient oriented x3, moves all extremities and no focal motor deficits Sensory Exam: no sensory deficits noted Extrem General: normal exam except as noted Left upper extremity: elbow/forearm Details: abnormal ROM Details: pain with active ROM and pain with passive ROM, laceration and distal pulses intact Course Vital Signs Vital signs: Vital Signs Temperature 36.4 C L 04/18/23 21:01 Pulse 97 H 04/18/23 21:01 Respiratory Rate 16 04/18/23 21:01 Blood Pressure 184/109 H 04/18/23 21:01 Pulse Oximetry 98 04/18/23 21:01 Temperature 36.4 C L 04/18/23 21:01 Temperature Source Temporal Artery Scan 04/18/23 21:01 Pulse 97 H 04/18/23 21:01 Respiratory Rate 16 04/18/23 21:01 Respiratory Effort Normal 04/18/23 21:05 Blood Pressure 184/109 H 04/18/23 21:01 Pulse Oximetry 98 04/18/23 21:01 Oxygen Delivery Method Room Air 04/18/23 21:01 Oxygen Flow Rate 0 04/18/23 21:01 Pain Level 7 04/18/23 21:01
--- NOTE | 2023-04-18 21:32 | W.PM.HP.N ---
Date of service: 04/18/23 Time of Service: 21:33 Assessment and Plan Assessment and plan (1) Dog bite of left forearm with infection: Status: Acute Assessment and plan: Treat with cipro/clindamycin. C/s orthopedics. NPO after midnight for a possible surgical intervention. (2) Cellulitis of left forearm: Status: Acute Assessment and plan: As above (3) Abscess of left forearm: Status: Acute Assessment and plan: As above (4) Hypokalemia: Status: Acute Assessment and plan: recheck labs; check magnesium (5) Hypertension: Status: Chronic Assessment and plan: Continue outpatient valsartan and chlorthalidone. The patient states that [facility] had taken him off of metoprolol when he was being treated there for a lung infection. He does not know why. I suspect that this could be due to his h/o use of crack cocaine. His last BP is 145/95, but earlier today his BPs were as high as 212/109. Will monitor BPs. Consider addition of a 3rd agent such as a potassium sparing diuretic, given concomittent hypokalemia. (6) DVT prophylaxis: Status: Acute Assessment and plan: SCDS in anticipate of a surgical procedure tomorrow (7) Discharge planning issues: Status: Acute Assessment and plan: DNR/DNI as per my conversation with the patient witnessed by nursing. History of Present Illness History of Present Illness Chief Complaint: Dog bite 10 days ago Narrative: Mr Shaikh is a 43 year old right-handed male with PMHx of hypertension, GERD, obesity with BMI of 40 kg/m2, who had been evaluated at our ED earlier today for a dog bite to his left forearm 10 days ago (occured while trying to separate a dog fight), was found to have a likely abscess (3 x 0.7 cm myofascial fluid collection between deep muscles layers in the volar forearm), but had left AMA, who now returns to the ED and is in agreement with the recommended admission for IV antibiotics and surgical intervention. The patient denies f/c, loss of sensation, paresthesias, changes to ROM. He thinks he may have seen an exposed tendon in the forearm. He denies trying to clean out the wounds with any instrument himself. Denies IVD use. The dogs were vaccinated, he states, and are finishing their 10 day quarantine and testing for rabies today. He does not know the result of the testing. Due to his penicillin allergy (which he cannot confirm), he was started on ciprofloxacin and clindamycin. Orthopedic consultation was sought, recommending a medicine admission with a surgical consult in am. Hospitalist admission was requested. Review of Systems All systems reviewed & are unremarkable except as noted in HPI and below PFSH All Active Problems (Updated 04/18/23 @ 23:09 by Teresita Matthews MD) Discharge planning issues (Acute) DVT prophylaxis (Acute) Obesity, morbid, BMI 40.0-49.9 (Acute) GERD (gastroesophageal reflux disease) (Chronic) Hypertension (Chronic) Hypokalemia (Acute) Abscess of left forearm (Acute) Dog bite of left forearm with infection (Acute) Cellulitis of left forearm (Acute) Abscess (Acute) Cellulitis (Acute) Dog bite (Acute) No-show for appointment (Acute) Medical History (Updated 04/18/23 @ 23:09 by Teresita Matthews MD) Pneumonia Surgical History (Updated 04/18/23 @ 23:09 by Teresita Matthews MD) S/P tendon repair 3rd digit RUE Family History (Updated 04/18/23 @ 23:09 by Teresita Matthews MD) Mother Hypertension Father Hypertension Social History (Updated 04/18/23 @ 23:06 by Teresita Matthews MD) Smoking/Tobacco Use Status: Never Smoking risk assessment performed?: Yes Alcohol Intake: current Alcohol Intake frequency: 0-2 drinks per day Alcohol type: beer Drug use: Occasionally Substance use type: marijuana and crack/cocaine Details: States he no longer uses Housing: house Current gender identity: male Do you feel safe at home: Yes Do you feel safe in your relationship?: Yes Meds Allergies and Home Medications Allergies Allergy/AdvReac Type Severity Reaction Status Date / Time Penicillins Allergy Mild Unverified 04/18/23 23:02 Home Medications Medication Instructions Recorded Confirmed Type chlorthalidone 25 mg tablet 1 tab PO DAILY 10/07/22 04/18/23 History cefuroxime axetil 500 mg tablet 500 mg PO Q12H #20 tabs 04/18/23 Rx metronidazole 500 mg tablet 500 mg PO Q8H #30 tabs 04/18/23 Rx valsartan 160 mg tablet 160 mg PO DAILY 04/18/23 04/18/23 History Exam Narrative Exam Narrative: General: Jittery middle-aged male who is non-toxic appearing, A&Ox3, laying comfortably in bed Neurological: A&Ox3, no focal deficits, sensation to LUE intact Psychiatric: impulsive, mildly anxious Skin: L forearm with mild erythema, three longitudinal wounds, the more distal of which is expressing purulent discharge, and the proximal is about 1 cm wide with exposed fatty tissue underneat. There are two smaller wounds which have closed up. HEENT: Atraumatic, normocephalic, EOMI, MMM, clear oropharynx, no submandibular or cervical lymphadenopathy, no goiter or JVD Cardiovascular: RRR, tachycardic, no m/r/g Lungs: CTAB Gastrointestinal: soft, nontender, nondistended Genitourinary: deferred Extremities: no edema BLEs, see LUE exam above, no c/c. Results Imaging Additional studies: CT LUE w/ contrast: There is skin irregularity and abundant subcutaneous edema in the dorsal forearm, consistent with dog bite as per history.? There is no radiopaque foreign body at this level nor elsewhere in the forearm.? There is a 3 x 0.7 cm myofascial level fluid collection between deep muscle layers in the volar distal forearm.? Although there is no rim enhancement of this collection nor gas therein, the possibility of abscess at this level is a consideration close follow-up is recommended. No fractures and no evidence of osteomyelitis. Labs 04/18/23 21:45 Last Vital Signs Temp 36.4 C L 04/18/23 21:01 Pulse 97 H 04/18/23 21:01 Resp 16 04/18/23 21:01 BP 184/109 H 04/18/23 21:01 Pulse Ox 98 04/18/23 21:01 Time Spent Time spent with Patient: 40-54 minutes Time was spent: preparing to see the patient(eg.review tests), obtaining and/or reviewing separately otained hiistory, ordering medications,tests, procedures, referring, communicating with other health neonatal intensive care nurse, indepentently interpreting results, counseling the patient and care coordination
[2023-04-18] MEDS: CIPROFLOXACIN 400 MG/200 ML BAG 200 MG IVPB (21:56)
[2023-04-18 22:01] LABS: Anion Gap 11.1 mmol/L (3-11); BUN 16 mg/dL (7-18); C-Reactive Protein 1.77 mg/dL (0.0-0.3); CO2 26.9 mmol/L (21.0-32.0); CREATININE 0.9 mg/dL (0.70-1.30); Calcium 8.8 mg/dL (8.5-10.1); Chloride 102 mmol/L (98-107); Estimated GFR 110.04 (mL/min/1.73m2); Glucose 136 mg/dL (74-106); Magnesium 1.8 mg/dL (1.8-2.4); Potassium 3.1 mmol/L (3.5-5.1); Sodium 140 mmol/L (136-145)
[2023-04-18 22:13] VITALS: BP 145/95; PULSE 84; RESP 18; TEMP 35.9; O2SAT 95
[2023-04-18 22:43] VITALS: BP 145/95; PULSE 84; RESP 18; TEMP 35.9; O2SAT 95
--- NOTE | 2023-04-18 23:56 | NUR.NOTE ---
Patient was admitted to the Medical-Surgical unit earlier this evening. He came to the desk saying he was going outside to ensure that his truck is locked and he has some paper work in his truck that he needs to sign. He was advised that the security could check on his truck for him. Patient was angry went towards the elevator said its, brettit that he cant go outside and come back inside as he wants to. He stated that we are behaving as if he is in [facility]. Patient was advised that was not the intent but its safety reason for each patient. He decided adamantly that he will not be staying. He was advised that he would be leaving against medical advised, he stated he does not care and he wants to leave. Incident was reported to the Nursing molding room supervisor and the Nurses assigned to patient removed IV access. Patient left the unit without waiting to be escorted, Security was alert of this.
--- NOTE | 2023-04-19 02:14 | DSE_ITS ---
Date of service: 04/19/23 Time of Service: 02:15 DS: Diagnosis Discharge Diagnosis (1) Dog bite of left forearm with infection: Status: Acute (2) Cellulitis of left forearm: Status: Acute (3) Abscess of left forearm: Status: Acute (4) Hypokalemia: Status: Acute (5) Hypertension: Status: Chronic Discharge Plan Disposition Patient Disposition: Against Medical Advice Condition: Fair Discharge Details Reason For Visit: Cellulitis and Abscess of left Forearm after bite Admit Date/Time: 04/18/23 21:25 Admit Provider: Teresita Matthews Attending Provider: Teresita Matthews [facility] Hospital Course: Mr Shaikh is a 43 year old right-handed male with PMHx of hypertension, GERD, obesity with BMI of 40 kg/m2, who had been evaluated at our ED earlier on the day of admission (04/18/23) for a dog bite to his left forearm 10 days ago (occured while trying to separate a dog fight), was found to have a likely abscess (3 x 0.7 cm myofascial fluid collection between deep muscles layers in the volar forearm), but had left AMA, who now returned to the ED later in the day and was admitted for IV antibiotics and surgical intervention. The patient denied f/c, loss of sensation, paresthesias, changes to ROM. He thinks he may have seen an exposed tendon in the forearm. He deniee trying? to clean out the wounds with any instrument himself. Deniee IVD use.? The dogs were vaccinated, he states, and are finishing their 10 day quarantine and testing for rabies today. He does not know the result of the testing. Due to his penicillin allergy (which he cannot confirm), he was started on ciprofloxacin and clindamycin. Orthopedic consultation was sought over the phone, recommending a medicine admission with a surgical consult in am. Hospitalist admission was requested. Unfortunately, before an orthopedic surgery consultation could happen, the patient left AMA again without receiving prescriptions. He did previously receive prescriptions form the ED. Home Meds and New Rx's Prescriptions: No Action chlorthalidone 25 mg tablet 1 tab PO DAILY Patient Comments: TAKE 1 TABLET BY MOUTH EVERY DAY cefuroxime axetil 500 mg tablet 500 mg PO Q12H Qty: 20 0RF metronidazole 500 mg tablet 500 mg PO Q8H Qty: 30 0RF valsartan 160 mg tablet 160 mg PO DAILY Patient Comments: TAKE 1 TABLET BY MOUTH ONCE DAILY Discharge Instructions Referrals: Jessica Lynne [Primary Care Provider] - Zay Magaña MD [ [facility] STAFF PHYSICIAN] - Discharge Orders Discharge Orders: Discharge Order (Routine); Ordered 04/19/23 Ordered By: Teresita Matthews Discharge Data Discharge Date/Time-TO BE ENTERED AT DEPARTURE: 04/19/23 00:10 Discharge Comment: patient left alert and oriented DS: Summary Time Spent with Patient providing and/or coordinating discharge services: Less than 30 minutes Status at Discharge Functional status at discharge: independent ambulation Overall status at discharge: patient is not back to baseline Mental Status: mental status grossly normal Speech and Movement: speech and movement normal Mood: labile mood and irritable mood Affect: anxious affect Exam Narrative Exam Narrative: General: Jittery middle-aged male who is non-toxic appearing, A&Ox3, laying comfortably in bed Neurological: A&Ox3, no focal deficits, sensation to LUE intact Psychiatric: impulsive, mildly anxious Skin: L forearm with mild erythema, three longitudinal wounds, the more distal of which is expressing purulent discharge, and the proximal is about 1 cm wide with exposed fatty tissue underneat. There are two smaller wounds which have closed up. HEENT: Atraumatic, normocephalic, EOMI, MMM, clear oropharynx, no submandibular or cervical lymphadenopathy, no goiter or JVD Cardiovascular: RRR, tachycardic, no m/r/g Lungs: CTAB Gastrointestinal: soft, nontender, nondistended Genitourinary: deferred Extremities: no edema BLEs, see LUE exam above, no c/c. Psych Mental Status: mental status grossly normal Speech and Movement: speech and movement normal Mood: labile mood and irritable mood Affect: anxious affect DS: Data Vitals/I&O Vitals and I&O: Vital Signs Temperature 35.9 C L 04/18/23 22:43 Temperature Source Tympanic 04/18/23 22:43 Pulse 84 04/18/23 22:43 Pulse Rhythm Regular 04/18/23 22:13 Respiratory Rate 18 04/18/23 22:43 Respiratory Effort Normal 04/18/23 21:05 Blood Pressure 145/95 H 04/18/23 22:43 Pulse Oximetry 95 04/18/23 22:43 Oxygen Delivery Method Room Air 04/18/23 22:43 Oxygen Flow Rate 0 04/18/23 22:43 Pain Level 8 04/18/23 22:13 Comment Pt has HTN at baseline 04/18/23 22:13 Intake & Output 04/18/23 04/18/23 04/19/23 11:59 23:59 11:59 Intake Total 50 / 50 Balance 50 / 50 Weight 127.006 kg Intake: IV 50 50 Other: Urine Appearance Clear Data Completed and Pending Completed studies during hospitalization [Text1]: CT LUE w/ contrast:?There is skin irregularity and abundant subcutaneous edema in the dorsal forearm, consistent with dog bite as per history.? There is no radiopaque foreign body at this level nor elsewhere in the forearm.? There is a 3 x 0.7 cm myofascial level fluid collection between deep muscle layers in the volar distal forearm.? Although there is no rim enhancement of this collection nor gas therein, the possibility of abscess at this level is a consideration close follow-up is recommended. No fractures and no evidence of osteomyelitis. Labs on day of discharge: Labs from last 24 hours 04/19/23 04/19/23 04/18/23 05:35 05:35 21:45 WBC Cancelled RBC Cancelled Hgb Cancelled Hct Cancelled MCV Cancelled MCH Cancelled MCHC Cancelled RDW Cancelled Plt Count Cancelled MPV Cancelled Immature Gran % Cancelled Neutrophils % Cancelled Band Neutrophils % Cancelled Lymphocytes % Cancelled Atypical Lymphs % Cancelled Monocytes % Cancelled Eosinophils % Cancelled Basophils % Cancelled Metamyelocytes % Cancelled Myelocytes % Cancelled Promyelocytes % Cancelled Other Cells % Cancelled Nucleated RBC % Cancelled Absolute Neutrophils Cancelled Absolute Lymphocytes Cancelled Absolute Monocytes Cancelled Absolute Eosinophils Cancelled Absolute Basophils Cancelled RBC Morphology Cancelled Polychromasia Cancelled Hypochromasia Cancelled Poikilocytosis Cancelled Basophilic Stippling Cancelled Anisocytosis Cancelled Microcytosis Cancelled Macrocytosis Cancelled Spherocytes Cancelled Tear Drop Cells Cancelled Ovalocytes Cancelled Stomatocytes Cancelled Chery-Longoria Bodies Cancelled María Elena Cells/Echinocytes Cancelled Acanthocytes (Spur) Cancelled Schistocytes Cancelled Sodium Cancelled 140 Potassium Cancelled 3.1 L Chloride Cancelled 102 Carbon Dioxide Cancelled 26.9 Anion Gap Cancelled 11.1 H BUN Cancelled 16 Creatinine Cancelled 0.9 Est GFR (CKD-EPI 2020) Cancelled 110.04 Glucose Cancelled 136 H Calcium Cancelled 8.8 Magnesium Cancelled 1.8 C-Reactive Protein Cancelled 1.77 H PFSH All Active Problems (Updated 04/18/23 @ 23:09 by Teresita Matthews MD) Discharge planning issues (Acute) DVT prophylaxis (Acute) Obesity, morbid, BMI 40.0-49.9 (Acute) GERD (gastroesophageal reflux disease) (Chronic) Hypertension (Chronic) Hypokalemia (Acute) Abscess of left forearm (Acute) Dog bite of left forearm with infection (Acute) Cellulitis of left forearm (Acute) Abscess (Acute) Cellulitis (Acute) Dog bite (Acute) No-show for appointment (Acute) Medical History (Updated 04/18/23 @ 23:09 by Teresita Matthews MD) Pneumonia Surgical History (Updated 04/18/23 @ 23:09 by Teresita Matthews MD) S/P tendon repair 3rd digit RUE Family History (Updated 04/18/23 @ 23:09 by Teresita Matthews MD) Mother Hypertension Father Hypertension Social History (Updated 04/18/23 @ 23:06 by Teresita Matthews MD) Smoking/Tobacco Use Status: Never Smoking risk assessment performed?: Yes Alcohol Intake: current Alcohol Intake frequency: 0-2 drinks per day Alcohol type: beer Drug use: Occasionally Substance use type: marijuana and crack/cocaine Details: States he no longer uses Housing: house Current gender identity: male Do you feel safe at home: Yes Do you feel safe in your relationship?: Yes Time Spent with Patient Time Spent with Patient: <45 minutes Time was spent: preparing to see the patient(eg.review tests), obtaining and/or reviewing separately otained hiistory, ordering medications,tests, procedures, referring, communicating with other health hospice care transitions coordinator, indepentently interpreting results, counseling the patient and care coordination
--- NOTE | 2023-04-19 19:53 | W.ED.FU ---
Follow Up Plan: Patient called the emergency department upset and confused about his diagnosis and antibiotics that he picked up today. Patient left inpatient hospitalist service after I admitted him last night and this morning went and picked up the initial antibiotics. Patient was frustrated due to the money spent in the provider early on in the day calling him and letting him know he was MRSA positive. Patient was concerned about what he should do and any further antibiotics. Patient was recommended to go to the closest hospital for readmission given the extent of his infection, being MRSA positive, and having an abscess that did need surgical intervention. Patient was informed that him leaving AGAINST MEDICAL ADVICE and not having completed appropriate care that he may have worsening outcomes. Of note patient was very aggressive and rude on the phone. Did inform patient that if he is not happy at the care he received at our hospital he should at least go to another hospital to receive appropriate treatment.
== END 2023-04-19 00:10 | disposition left against medical advice (07) | DRG 605 ==
LOC: ER 21:52 → MS 22:11
PROVIDERS: Admitting Provider Internal Medicine; Emergency Provider Nurse Practitioner Family; PCP Nurse Practitioner Family; Visit Provider Internal Medicine
DX: S51.852A Open bite of left forearm, initial encounter (principal); L02.414 Cutaneous abscess of left upper limb; L03.114 Cellulitis of left upper limb; W54.0XXA Bitten by dog, initial encounter; E87.6 Hypokalemia; I10 Essential (primary) hypertension; B95.62 Methicillin resistant Staphylococcus aureus infection as the cause of diseases classified elsewhere; K21.9 Gastro-esophageal reflux disease without esophagitis; E66.9 Obesity, unspecified; Z68.35 Body mass index [BMI] 35.0-35.9, adult; Z66 Do not resuscitate
CPT/HCPCS: 80048; 90471; 96365; 96375; 99285; 83735; 85025; 86140; 99223; J0744

== ENCOUNTER 2023-07-06 09:25 | Inpatient (IN) | payer MEDICAID, SELFPAY ==
[2023-07-06] VITALS (187 sets, daily range): BP systolic 120–219; BP diastolic 64–150; PULSE 70–115; RESP 9–30; TEMP 36.6–37.9; O2SAT 91–99
--- NOTE | 2023-07-06 09:30 | RT.EKG_ITS ---
APPROVED REPORT Exam: Resting ECG Reason for Exam: sob Patient Location: E HR:100 bpm ECG Measurements Heart Rate 100 AXIS [place] 184 P 59 QRSd 101 QRS 57 QT 374 T 165 QTc 483 Conclusion Sinus tachycardia...rate> 99 Left atrial enlargement...P, P'>60mS, <-0.15mV V1 LVH with secondary repolarization abnormality...multi-LVH criteria, abnrm ST-T
--- OUTSIDE RECORDS SUMMARY | 2023-07-06 09:30 | XMS_ITS | Continuity of Care Document ---
Author Name Unknown Address [address] [place] [address] Phone [facility] Address [address] [place] [address] Phone Care Team Providers Care Licensing And Registration Director Name Role Phone DO Teodora Cowan Emergency Provider None Primary Care Provider Unavailabl e Care Teams Patient Care Team Team Status: Active Member Role Status Dates None Primary Care Provider Active Patient Care Team Team Status: Inactive Member Role Status Dates Teodora Cowan DO Emergency Provider Active None Primary Care Provider Active Chief Complaint and Reason for Visit Chief Complaint DOG BITE Social History Smoking Status Status Start Date End Date Date of Observa tion Unknown if ever smoked Augus 2022 4:10pm Additional Data Assigned Sex Male Vital Signs Vital Reading Result Reference Range Collection Date/Time Heart Rate 112 /min 60-100 April 08 4:10pm Respiratory rate 16 /min 12-18 March 4:10pm Oxygen saturation by Pulse oximetry 98 % 92-100 April 08, 2023 4: 10pm BP Systolic 147 mm[Hg] 90-130 April 08 4:10pm BP Diastolic 82 mm[Hg] 70-80 April 08 4:10pm Encounters Encounter Location(s) Arrival/Admit Date Discharge/Depart Date Provider(s) Departed [facility] Emergency Dept (Rooms) April 08, 2023 3:44pm April 08, 2023 5:00pm [facility] Discharge Instructions Additional Instructions Education resources provided:: No Patient portal information provided:: No
--- OUTSIDE RECORDS SUMMARY | 2023-07-06 09:30 | XMS_ITS | Continuity of Care Document ---
Author Name Unknown Organization [facility] Address [address] [place] [id number] Care Team Providers Care [employer] Name Role Phone KADE REINOSO APRN Primary Care Physician [phone] Encounter [facility] [facility]BR [id number] Date(s): 03/17/23 - 03/17/[address] [address]- Discharge Disposition: Transfer to Higher Level of Care Attending Physician: Shimon Davila MD Admitting Physician: Shimon Davila MD Allergies, Adverse Reactions, Alerts Substance Reaction Severity Status penicillin Unknown Active Assessment and Plan Diagnostic Tests Pending * Blood Culture 03/17/23 * Blood Culture 03/17/23 Immunizations Given and Recorded Vaccine Date Status Refusal Reason tetanus/diphth/pertuss (Tdap) adult/adol 11/10/22 Given Medications chlorthalidone 25 mg oral tablet TAKE 1 TABLET BY MOUTH EVERY DAY Start Date: 10/26/22 Status: Ordered Metoprolol Succinate ER 100 mg oral tablet, extended release TAKE 1 TABLET BY MOUTH EVERY DAY Start Date: 10/26/22 Status: Ordered Mental Status 03/17/23 Eye Opening Response Sj Spontaneous ly Best Verbal Response Casanova Oriented Best Motor Response Sj Obeys comman ds Sj Coma Score 15 Results Laboratory List Name Date Troponin-I 03/17/23 BNP 03/17/23 CBC w/ Diff 03/17/23 Comprehensive Metabolic Panel (CMP) 03/17 Troponin-I 03/17/23 Automated Diff 03/17/23 Most recent to oldest [Reference Range]: 1 2 WBC [4.8-10.8 K/mcL] 11.1 K/mcL *HI* (03/17/23 10:16 AM) RBC [4.20-6.10 Million/mcL] 4.27 Million /mcL (03/17/23 10:16 AM) Neutro Auto [42.2-75.2 %] 75.1 % (03/17/23 10:16 AM) Lymph Auto [20.5-51.1 %] 16.3 % *LOW* (03/17/23 10:16 AM) Donley Auto [1.7-9.3 %] 5.4 % (03/17/23 10:16 AM) Basophil Auto [0.0-0.8 %] 0.8 % (03/17/23 10:16 AM) BUN [8-26 mg/dL] 14 mg/dL (03/17/23 10:16 AM) Glucose Level [74-106 mg/dL] 211 mg/dL *HI* (03/17/23 10:16 AM) Potassium Level [3.5-5.1 mmol/L] 3.8 mmo l/L (03/17/23 10:16 AM) Baso Absolute [0.0-0.2 K/mcL] 0.1 K/mcL (03/17/23 10:16 AM) MCV [80.0-94.0 fL] 91.3 fL (03/17/23 10:16 AM) AST [15-41 IntlUnit/L] 69 IntlUnit/L *HI* (03/17/23 10:16 AM) ALT [17-63 IntlUnit/L] 67 IntlUnit/L *HI* (03/17/23 10:16 AM) MCHC [32.0-36.0 g/dL] 32.8 g/dL (03/17/23 10:16 AM) Osmolality [275-295 mOsm/kg] 277 mOsm/kg (03/17/23 10:16 AM) Troponin-I [<=0.05 ng/mL] 0.05 ng/mL 1 (03/17/23 12:20 PM) 0.05 ng/mL 2 (03/17/23 10:16 AM) Sodium Level [134-143 mmol/L] 135 mmol/L (03/17/23 10:16 AM) Lymph Absolute [1.2-3.4 K/mcL] 1.8 K/mcL (03/17/23 10:16 AM) Hct [42.0-52.0 %] 39.0 % *LOW* (03/17/23 10:16 AM) Calcium Level [8.9-10.3 mg/dL] 8.7 mg/dL *LOW* (03/17/23 10:16 AM) Donley Absolute [0.1-0.6 K/mcL] 0.6 K/mcL (03/17/23 10:16 AM) Albumin Level [3.5-5.0 g/dL] 3.3 g/dL *LOW* (03/17/23 10:16 AM) Protein Total [6.5-8.1 g/dL] 6.8 g/dL (03/17/23 10:16 AM) MCH [27.0-31.0 pg] 30.0 pg (03/17/23 10:16 AM) Neutro Absolute [1.4-6.5 K/mcL] 8.3 K/mc L *HI* (03/17/23 10:16 AM) Bilirubin Total [0.2-1.2 mg/dL] 0.9 mg/d L (03/17/23 10:16 AM) Hgb [14.0-18.0 g/dL] 12.8 g/dL *LOW* (03/17/23 10:16 AM) Alk Phos [38-130 IntlUnit/L] 80 IntlUnit /L (03/17/23 10:16 AM) MPV [7.4-10.4 fL] 10.1 fL (03/17/23 10:16 AM) Platelets [130-400 K/mcL] 433 K/mcL *HI* (03/17/23 10:16 AM) CO2 [22-32 mmol/L] 24 mmol/L (03/17/23 10:16 AM) Eos Absolute [0.0-0.2 K/mcL] 0.2 K/mcL (03/17/23 10:16 AM) BNP [<=100 pg/mL] 552 pg/mL *HI* (03/17/23 10:16 AM) Chloride Level [98-111 mmol/L] 101 mmol/ L (03/17/23 10:16 AM) RDW-CV [11.5-14.5 %] 12.6 % (03/17/23 10:16 AM) A/G Ratio 0.9 *NA* (03/17/23 10:16 AM) BUN/Creat Ratio [8.0-20.0] 16.7 (03/17/23 10:16 AM) Globulin 3.5 *NA* (03/17/23 10:16 AM) Imm Gran Absolute 0.04 *NA* (03/17/23 10:16 AM) Imm Gran Auto [0.0-0.5 %] 0.4 % (03/17/23 10:16 AM) NRBC Auto 0 *NA* (03/17/23 10:16 AM) NRBC Absolute 0 *NA* (03/17/23 10:16 AM) Creatinine Level [0.61-1.24 mg/dL] 0.84 mg/dL (03/17/23 10:16 AM) Anion Gap [3.0-12.0] 10.0 (03/17/23 10:16 AM) Eos, Auto [0.00-3.00 %] 2.00 % (03/17/23 10:16 AM) eGFR CKD-EPI [>=60 mL/min/1.73 m2] 112 m L/min/1.73 m2 (03/17/23 10:16 AM) 1Interpretive Data: Elevated levels of Troponin I are detectable in plasma within 3-6 hours after onset of myocardial infarction, reach peak concentrations in approximately 12-16 hours, and remain elevated for 4-9 days following an AMI. Any conditions resulting in myocardial damage can potentially increase cardiac Troponin I levels above the expected values. Clinical studies have documented these conitions to include: unstable angina, congestive heart failure, myocarditis, cardiac surgery, or invasive testing proedures. Arteritits, coronary embolism, and cocaine or amphetamine use potentially lead to elevated levels. 2Interpretive Data: Elevated levels of Troponin I are detectable in plasma within 3-6 hours after onset of myocardial infarction, reach peak concentrations in approximately 12-16 hours, and remain elevated for 4-9 days following an AMI. Any conditions resulting in myocardial damage can potentially increase cardiac Troponin I levels above the expected values. Clinical studies have documented these conitions to include: unstable angina, congestive heart failure, myocarditis, cardiac surgery, or invasive testing proedures. Arteritits, coronary embolism, and cocaine or amphetamine use potentially lead to elevated levels. Radiology Reports * Exam Date Time Procedure Performing Provider Status 03/17/23 11:[address] Angio Chest DomainUser, Generated; Auth (Verified) Notes: (CT Angio Chest) Reason For Exam: sob CT Angio Chest EXAM DESCRIPTION: CT Angio Chest 03/17/2023 INDICATION: SOB TECHNIQUE: All CT scans at this facility use at least one of these dose optimization techniques: Automated exposure control; mA and/or kV adjustment per patient size (includes targeted exams where dose is matched to clinical indication); or iterative reconstruction. CT angiography examination of the chest with thin section axial images including sagittal and coronal MPR images performed on a separate workstation under concurrent supervision. 100 cc of Isovue 370 contrast was utilized COMPARISON: AP chest radiograph from 03/17/2023, 1028 hours FINDINGS: Patient respiratory motion artifact limits evaluation, especially of peripheral pulmonary artery branches. Normal opacification of the right ventricular outflow tract, main pulmonary arteries and proximal segmental pulmonary arteries with no evidence of significant central pulmonary embolism. Patchy areas of nodular alveolar infiltrate bilaterally, right greater than left, with upper lobe predominance. Additional mild patchy areas of ground-glass attenuation infiltrate are noted bilaterally. Findings are suspicious for bronchopneumonia pattern with pulmonary edema considered less likely. No central endobronchial filling defect identified. No pleural effusion or pneumothorax. Mildly enlarged right paratracheal, prevascular space and subcarinal lymph nodes which may be reactive. Mild bilateral hilar adenopathy. No axillary adenopathy. No pericardial effusion. Normal caliber thoracic aorta. Small left adrenal nodule which is difficult to characterize based on size. No mass or adenopathy otherwise noted in the visualized upper abdomen No suspicious regional osseous lesions. IMPRESSION: No evidence of significant central pulmonary embolism. Respiratory motion artifact limits evaluation of peripheral pulmonary arteries. Patchy areas of lung consolidation with additional patchy areas of ground-glass attenuation infiltrate bilaterally, right greater than left. Pattern of abnormality is suspicious for bronchopneumonia. Pulmonary edema is considered less likely. Mediastinal and bilateral hilar adenopathy which may be reactive. JOB #: [id number] Final Signed by: Rogers Villa MD Signed (Electronic Signature): 03/17/2023 11:47 am * Exam Date Time Procedure Performing Provider Status 03/17/23 10:34 AM XR Chest 1 View Radha Feliz E; Auth (Verified) Notes: (XR Chest 1 View) Reason For Exam: chest pain XR Chest 1 View EXAM DESCRIPTION: XR Chest 1 View 03/17/2023 INDICATION: CHEST PAIN COMPARISON: None IMPRESSION: Patchy areas of interstitial-alveolar infiltrate bilaterally, right greater than left. Findings may reflect pulmonary edema in the setting of CHF or possible pneumonitis. Normal cardiomediastinal contour. Top-normal cardiac size No significant pleural effusion or pneumothorax. JOB #: [id number] Final Signed by: Rogers Villa MD Signed (Electronic Signature): 03/17/2023 10:36 am Vital Signs Most recent to oldest [Reference Range]: 1 2 3 Temperature Tympanic [36.6-37.9 Deg C] 36.8 Deg C (03/17/23 10:00 AM) Peripheral Pulse Rate [60-100 bpm] 103 bpm *HI* (03/17/23 4:52 PM) 103 bpm *HI* (03/17/23 4:44 PM) 102 bpm *HI* (03/17/23 4:01 PM) Heart Rate Monitored [60-100 bpm] 105 bpm *HI* (03/17/23 4:52 PM) 104 bpm *HI* (03/17/23 4:44 PM) 102 bpm *HI* (03/17/23 4:01 PM) Respiratory Rate [12-24 br/min] 19 br/min (03/17/23 4:52 PM) 30 br/min *HI* (03/17/23 4:44 PM) 24 br/min (03/17/23 4:01 PM) Blood Pressure [90-140/60-90 mmHg] 165/111mmHg *HI* (03/17/23 4:52 PM) 164/115mmHg *HI* (03/17/23 2:58 PM) 161/114mmHg *HI* (03/17/23 2:40 PM) Mean Arterial Pressure Cuff 125 mmHg (03/17/23 4:52 PM) 130 mmHg (03/17/23 2:58 PM) 127 mmHg (03/17/23 2:40 PM) Weight 129.28 kg (03/17/23 10:00 AM) Weight Dosing 129.28 kg (03/17/23 10:13 AM) Height 185.000 cm (03/17/23 10:00 AM) Height/Length Dosing 185.000 cm (03/17/23 10:13 AM) Body Mass Index 38.000 kg/m2 (03/17/23 10:00 AM) Social History Social History Type Response Tobacco Never tobacco user T obacco Use:. Sex Physician Emergency department Note * Shimon Davila MD: PERFORM Event Display: ED Note Physician Authored Date: [id number] JOANIE LARSON :1980 Age:43 years Sex:Male Visit Date:03/17/2023 Primary Care Physician: KADE REINOSO APRN Basic Information Time Seen: Shimon Davila MD / 03/17/2023 10:14 Chief Complaint pt reports couple weeks of sob and diffculty breathing yellow phlgm and I thought I had a chest cold worse at night History Of Present Illness: 43-year-old obese man with known hypertension, no meds for??close to a year, presents markedly hypertensive with??an EKG pattern??reading as LAD??STEMI??(ST elevation??V2??V3 V4), complaining of??feeling like??SH???T. ??Patient describes??feeling??rundown, short of breath, dyspnea on exertion, coughing??for several weeks;??has had some chest discomforts off and on sometimes radiating to the back??but is currently denying chest pain.?? No measured fevers, has had some mucopurulent sputum. ??Heavy marijuana user??multiple times a day.?? Denies any leg swelling or pain. ??Has no history of an CO, has never had a cardiac work-up.?? Presents with slight diaphoresis,??appears??ill. Review of Systems: Review of Systems: Constitutional: [No fevers, chills, sweats] Eye: [No acute visual complaints] ENT: [No ear pain, nasal congestion, sore throat] Respiratory: [+ shortness of breath, +cough] Cardiovascular: [Occasional discomfort, sometimes radiating to back; denying pain??currently] Gastrointestinal: [No nausea, vomiting, or diarrhea. No blooding or melena] Genitourinary: [No dysuria or hematuria] Musculoskeletal: [No acute back pain, neck pain, joint pain, muscle pain, decreased range of motion] Integumentary: [No rash, pruritus, abrasions] Neurologic: [No focal sensory or motor complaints. Denies syncope] ? Physical Exam: General: [Alert and oriented, well nourished, no acute distress].?Heavyset??hypertensive man,??slightly diaphoretic??ill-appearing Eye: [PERRL, EOMI, normal conjunctiva]. HENT: [Normocephalic, normal hearing, moist oral mucosa, no scleral icterus, no nasal discharge].?? Neck: [Ranging neck, normal inspection].?? Lungs: [Occasional coughing clear to auscultation, non-labored respiration, no tachypnea].?? Heart: [Normal rate, regular rhythm, no murmur, gallop or edema]. Abdomen: [Soft, non-tender, non-distended, normal bowel sounds].?? Musculoskeletal: [Normal range of motion and strength, no tenderness or swelling]. Skin: [Skin is warm, dry and pink, no rashes or lesions]. Neurologic: [Awake, alert and oriented X4, normal tone, moving all extremities with good strength]. Psychiatric: [Cooperative, appropriate mood and affect]. Physical Exam Vitals & Measurements T:??36.8?C ??(Tympanic)?? HR:??102??(Peripheral)?? HR:??102??(Monitored)?? RR:??24?? BP:??164/115?? SpO2:??96%?? HT:??185.000??cm?? WT:??129.28??kg?? BMI:??38.000?? Pain Score:??5?? O2 Therapy:??Room air?? Medical Decision Making: Critical Care Time Spent 60 minutes, coordinating care with??pv design and installation technician, case mgr,??radiology regarding CT and chest x-ray reads,??[facility] regarding transfer Procedure No Qualifying Data Assessment/Plan Ordered: heparin IV additive 25,000 units [12 unit/kg/hr] + Premix Diluent 500 mL, Total Volume (mL): 500, 500 mL, Soln-IV, IV, 31.03 mL/hr, Start Date: 03/17/23 10:17:00 EDT, 129.28 kg, Populate Charting Weight From Order, 2.58, m2 nitroglycerin Additive 50 mg + Premix Diluent 250 mL, Total Volume (mL): 250, 250 mL, Injection, IV, Titrate Per Protocol, Order Duration: 30 days, Start Date: 03/17/23 10:17:00 EDT, Stop Date: 04/16/23 10:16:00 EDT, 129.28 kg, Populate Charting Weight From Order, 2.58, m2 NS drip 1,000 mL, Total Volume (mL): 1,000, 1,000 mL, Soln-IV, IV, 125 mL/hr, Order Duration: 30 days, Start Date: 03/17/23 10:18:00 EDT, Stop Date: 04/16/23 10:17:00 EDT, 129.28 kg, Populate Charting Weight From Order, 2.58, m2 Blood Culture, Blood, Stat collect, ST - Stat, 03/17/23 12:01:00 EDT, Once, Nurse collect, Print Label Blood Culture, Blood, Stat collect, ST - Stat, 03/17/23 12:01:00 EDT, Once, Nurse collect, Print Label Transfer to Another Facility, 03/17/23 14:08:00 EDT EKG concerning for ST elevations??in LAD distribution;??acute CO?although history is inconsistent.?? Weeks of discomfort,??worsening over days, now denies chest pain. ??Patient given aspirin, nitroglycerin for hypertension initially sublingual then IV. ??EKG faxed to [facility], advised heparinPlavix. ??Emergent echo obtained; has EF in the high 40s, septal akinesis, but does not have apical??wall motion abnormality consistent with??LAD??ST elevation CO). ??Initial troponin came back at 0.05, repeat also??at same value.?? Chest x-ray shows increased markings bilaterally right greater than left.?? White count is elevated slight left shift; given ceftriaxone and azithromycin. ??CT a obtained to??further evaluate??lungs;??no??evidence of PE or aortic??catastrophe;??scan more consistent with infectious process than failure??per radiology, though BNP is elevated??in the 600s.?? Patient given Lasix out of concern for??heart failure with his marked hypertension dyspnea on exertion and orthopnea;??put out a lot of urine with 40 of Lasix IV.?? Case discussed with??aluminum siding installer at [facility]; accepted by Dr. Claudio for transfer for further evaluation??given wall motion abnormalities, poorly controlled hypertension, evidence of some heart failure. Medication Reconciliation Unchanged chlorthalidone (chlorthalidone 25 mg oral tablet)TAKE 1 TABLET BY MOUTH EVERY DAY. ?? metoprolol (Metoprolol Succinate ER 100 mg oral tablet, extended release)TAKE 1 TABLET BY MOUTH EVERY DAY. Problem List/Past Medical History Ongoing Morbid obesity Historical No qualifying data Medication Administration Given heparin IV additive 25,000 units [12 unit/kg/hr] + Premix Diluent 500 mL, IV nitroglycerin Additive 50 mg + Premix Diluent 250 mL, IV NS drip, 1000 mL, IV NS drip, 500 mL, IV Bolus aspirin, 324 mg, Oral azithromycin, IV Piggyback cefTRIAXone, 1 g, IV Piggyback heparin, 4000 units, IV Push Lasix, 40 mg, IV Push losartan, 50 mg, Oral nitroglycerin 0.4 mg sublingual tablet, 0.4 mg, 0.4 mg, 0.4 mg, SL Plavix, 600 mg, Oral Allergies penicillin Social History Electronic Cigarette/Vaping Electronic Cigarette Use: Never. Tobacco Never tobacco user Tobacco Use:. Diagnostic Results CT Angio Chest 03/17/2023 11:49 EDT XR Chest 1 View 03/17/2023 10:[address] Angio Chest ?? 03/17/23 11:47:13 EXAM DESCRIPTION: CT Angio Chest ?? 03/17/2023 ?? INDICATION: SOB ?? TECHNIQUE: All CT scans at this facility use at least one of these dose optimization techniques: Automated exposure control; mA and/or kV adjustment per patient size (includes targeted exams where dose is matched to clinical indication); or iterative reconstruction. ?? CT angiography examination of the chest with thin section axial images including sagittal and coronal MPR images performed on a separate workstation under concurrent supervision. ?? 100 cc of Isovue 370 contrast was utilized ?? COMPARISON: AP chest radiograph from 03/17/2023, 1028 hours ?? FINDINGS: Patient respiratory motion artifact limits evaluation, especially of peripheral pulmonary artery branches. Normal opacification of the right ventricular outflow tract, main pulmonary arteries and proximal segmental pulmonary arteries with no evidence of significant central pulmonary embolism. ?? Patchy areas of nodular alveolar infiltrate bilaterally, right greater than left, with upper lobe predominance. Additional mild patchy areas of ground-glass attenuation infiltrate are noted bilaterally. Findings are suspicious for bronchopneumonia pattern with pulmonary edema considered less likely. No central endobronchial filling defect identified. ?? No pleural effusion or pneumothorax. ?? Mildly enlarged right paratracheal, prevascular space and subcarinal lymph nodes which may be reactive. Mild bilateral hilar adenopathy. No axillary adenopathy. No pericardial effusion. Normal caliber thoracic aorta. ?? Small left adrenal nodule which is difficult to characterize based on size. No mass or adenopathy otherwise noted in the visualized upper abdomen ?? No suspicious regional osseous lesions. ?? IMPRESSION: No evidence of significant central pulmonary embolism. Respiratory motion artifact limits evaluation of peripheral pulmonary arteries. ?? Patchy areas of lung consolidation with additional patchy areas of ground-glass attenuation infiltrate bilaterally, right greater than left. Pattern of abnormality is suspicious for bronchopneumonia. Pulmonary edema is considered less likely. ?? Mediastinal and bilateral hilar adenopathy which may be reactive. ? JOB #: [id number] Electronically Signed By: ?? Signed By: Rogers Villa MD ?? XR Chest 1 View ?? 03/17/23 10:36:37 EXAM DESCRIPTION: XR Chest 1 View ?? 03/17/2023 ?? INDICATION: CHEST PAIN ?? COMPARISON: None ?? IMPRESSION: Patchy areas of interstitial-alveolar infiltrate bilaterally, right greater than left. Findings may reflect pulmonary edema in the setting of CHF or possible pneumonitis. ?? Normal cardiomediastinal contour. Top-normal cardiac size ?? No significant pleural effusion or pneumothorax. ? JOB #: [id number] Electronically Signed By: ?? Signed By: Allen SMITH, Rogers Lab Results CBC and Differential?? LATEST RESULTS?? WBC?? 03/17/23 10:16?? 11.1 ??High?? RBC?? 03/17/23 10:16?? 4.27?? Hgb?? 03/17/23 10:16?? 12.8 ??Low?? Hct?? 03/17/23 10:16?? 39.0 ??Low?? MCV?? 03/17/23 10:16?? 91.3?? MCH?? 03/17/23 10:16?? 30.0?? MCHC?? 03/17/23 10:16?? 32.8?? RDW-CV?? 03/17/23 10:16?? 12.6?? Platelets?? 03/17/23 10:16?? 433 ??High?? MPV?? 03/17/23 10:16?? 10.1?? Neutro Auto?? 03/17/23 10:16?? 75.1?? Lymph Auto?? 03/17/23 10:16?? 16.3 ??Low?? Donley Auto?? 03/17/23 10:16?? 5.4?? Eos, Auto?? 03/17/23 10:16?? 2.00?? Basophil Auto?? 03/17/23 10:16?? 0.8?? Imm Gran Auto?? 03/17/23 10:16?? 0.4?? NRBC Auto?? 03/17/23 10:16?? 0?? Neutro Absolute?? 03/17/23 10:16?? 8.3 ??High?? Lymph Absolute?? 03/17/23 10:16?? 1.8?? Donley Absolute?? 03/17/23 10:16?? 0.6?? Eos Absolute?? 03/17/23 10:16?? 0.2?? Baso Absolute?? 03/17/23 10:16?? 0.1?? Imm Gran Absolute?? 03/17/23 10:16?? 0.04?? NRBC Absolute?? 03/17/23 10:16?? 0? Routine Chemistry?? LATEST RESULTS?? Sodium Level?? 03/17/23 10:16?? 135?? Potassium Level?? 03/17/23 10:16?? 3.8?? Chloride Level?? 03/17/23 10:16?? 101?? CO2?? 03/17/23 10:16?? 24?? Alk Phos?? 03/17/23 10:16?? 80?? AST?? 03/17/23 10:16?? 69 ??High?? ALT?? 03/17/23 10:16?? 67 ??High?? BUN?? 03/17/23 10:16?? 14?? Glucose Level?? 03/17/23 10:16?? 211 ??High?? Creatinine Level?? 03/17/23 10:16?? 0.84?? BUN/Creat Ratio?? 03/17/23 10:16?? 16.7?? eGFR CKD-EPI?? 03/17/23 10:16?? 112?? Calcium Level?? 03/17/23 10:16?? 8.7 ??Low?? Protein Total?? 03/17/23 10:16?? 6.8?? Albumin Level?? 03/17/23 10:16?? 3.3 ??Low?? Globulin?? 03/17/23 10:16?? 3.5?? A/G Ratio?? 03/17/23 10:16?? 0.9?? Bilirubin Total?? 03/17/23 10:16?? 0.9?? Anion Gap?? 03/17/23 10:16?? 10.0?? Osmolality?? 03/17/23 10:16?? 277? Cardiac Isoenzymes?? LATEST RESULTS?? Troponin-I?? 03/17/23 12:20?? 0.05?? BNP?? 03/17/23 10:16?? 552 ??High? Electronically Signed on 03/17/23 04:08 PM Shimon Davila MD Patient Care team information Care Team Personnel Name: KADE REINOSO APRN Position: No Access Member Role: Primary Care Physician Address: Address: [address] [place] [phone] Name: Corine Smith Position: Nurse Member Role: ED Nurse Name: Shimon Davila MD Position: Physician Member Role: ED Physician Address: Address: [facility] [address] [place] [id number] Care Team Related Persons Name: ИВАН LARSON
--- OUTSIDE RECORDS SUMMARY | 2023-07-06 09:30 | XMS_ITS | Continuity of Care Document ---
Author Name Unknown Organization [facility] Occupationa l Health Address [address] [place] [address] Encounter [facility] NBR [id number] Date(s): 10/26/22 - 10/26/22 [facility] Occupational Health [address], [place] [address] Encounter Diagnosis Separation of AC joint(Discharge Diagnosis) - 10/26/22 Discharge Disposition: Home or Self Care Attending Physician: Roz Gentile PA-C Allergies, Adverse Reactions, Alerts Substance Reaction Severity Status penicillin Unknown Active Functional Status 10/26/22 Other exposure to Infectious Disease Non e Medications chlorthalidone 25 mg oral tablet TAKE 1 TABLET BY MOUTH EVERY DAY Start Date: 10/26/22 Status: Ordered Metoprolol Succinate ER 100 mg oral tablet, extended release TAKE 1 TABLET BY MOUTH EVERY DAY Start Date: 10/26/22 Status: Ordered Vital Signs Most recent to oldest [Reference Range]: 1 Temperature Tympanic [36.6-37.9 Deg C] 3 6.3 Deg C *LOW* (10/26/22 11:00 AM) Peripheral Pulse Rate [60-100 bpm] 86 bp m (10/26/22 11:00 AM) Blood Pressure [90-140/60-90 mmHg] 182/1 27mmHg *HI* (10/26/22 11:00 AM) Weight 136.08 kg (10/26/22 11:00 AM) Weight Measured (lbs) 300.005 lb (10/26/22 11:00 AM) Height 191.77 cm (10/26/22 11:00 AM) Height/Length Measured (inches) 75.5 inc h (10/26/22 11:00 AM) BSA Measured 2.69 m2 (10/26/22 11:00 AM) Body Mass Index 37 kg/m2 (10/26/22 11:00 AM) Social History Social History Type Response Tobacco Never tobacco user T obacco Use:. Sex Physician Outpatient Note * Roz Gentile PA-C: PERFORM Event Display: Office Clinic Note Physician Authored Date: [id number] JOANIE LARSON :1980 Age:42 years Sex:Male Visit Date:10/26/2022 Chief Complaint History of shoulder injury a few weeks ago. ??Needs clearance to return to work. History of Present Illness Patient is a 42-year-old male that presents to the occupational office today for??a fitness for duty. ??Several weeks ago he had fallen while snowboarding, suffering??an AC separation of the right shoulder.?? He did follow-up with orthopedics??who recommended only conservative treatment and light duty which 10/16/22. ??His employer is requesting clearance from our office.?? They have not requested??FCE. ?? Patient feels 90 to 95% improved??since the injury.?No new injury. ??No extremity paresthesias or weakness.??He is able to overhead lift??and carry/lift greater than 50 pounds. ??He feels he isable to perform??all of his job duties. Physical Exam Vitals & Measurements T:??36.3?C ??(Tympanic)?? HR:??86??(Peripheral)?? BP:??182/127?? HT:??191.77??cm?? WT:??136.08??kg?? BMI:??37?? BSA:??2.69?? He is well-appearing and in no acute distress, very pleasant, reliable historian Good range of motion of the shoulder joint in all planes. No muscle atrophy or fasciculations of the right upper extremity. ??Normal handgrip.?? Normal DTRs upper extremities. No redness, swelling or warmth. There is a palpable deformity of the AC joint, but no tenderness. Medical Decision Making: AC??joint separation, right shoulder: This is a 42-year-old male that sustained??grade 2 or 3 AC joint separation??which is not??a surgical case. ??He feels he can perform all of his job duties. ??I am convinced that??he does not need any??additional prolonged restrictions. ??He will??be allowed to??return to work??without any??restrictions.?? If his employer desires, they may request an FCE??which would have to be done??at an occupational office??that offers them. Assessment/Plan 1.??Separation of AC joint??S43.109A Problem List/Past Medical History Ongoing No qualifying data Historical No qualifying data Medications chlorthalidone 25 mg oral tablet Metoprolol Succinate ER 100 mg oral tablet, extended release Allergies penicillin Social History Electronic Cigarette/Vaping Electronic Cigarette Use: Never. Tobacco Never tobacco user Tobacco Use:. Electronically Signed on 10/26/22 12:04 PM Roz Gentile PA-C
--- OUTSIDE RECORDS SUMMARY | 2023-07-06 09:30 | XMS_ITS | Continuity of Care Document ---
Author Name Unknown Organization [facility] Address [address] [place] [id number] Care Team Providers Care Medical Psychotherapist Name Role Phone KADE REINOSO APRN Primary Care Physician Encounter [facility] FIN NBR [id number] Date(s): 11/10/22 - 11/10/[address] [id number] Encounter Diagnosis Finger laceration(Discharge Diagnosis) - 11/10/22 Discharge Disposition: Home f/u Internal Provider Attending Physician: Malik Dyer MD Admitting Physician: Malik Dyer MD Referring Physician: Malik Dyer MD Allergies, Adverse Reactions, Alerts Substance Reaction Severity Status penicillin Unknown Active Immunizations Given and Recorded Vaccine Date Status Refusal Reason tetanus/diphth/pertuss (Tdap) adult/adol 11/10/22 Given Medications cephalexin 500 mg oral capsule 500 mg = 1 cap, Oral, every 12 hr, # 20 cap, 0 Refill(s), 11/21/22 21:00:00 EDT, Pharmacy: [id number], 160, cm, 11/10/22 19:28:00 EDT, Height/Length Dosing, 136, kg, 11/10/22 19:28:00 EDT, Weight Dosing Start Date: 11/10/22 Stop Date: 11/21/22 Status: Ordered chlorthalidone 25 mg oral tablet TAKE 1 TABLET BY MOUTH EVERY DAY Start Date: 10/26/22 Status: Ordered Metoprolol Succinate ER 100 mg oral tablet, extended release TAKE 1 TABLET BY MOUTH EVERY DAY Start Date: 10/26/22 Status: Ordered Mental Status 11/10/22 Eye Opening Response [place] Spontaneous ly Best Verbal Response [place] Oriented Best Motor Response [place] Obeys comman ds [place] Coma Score 15 Results Radiology Reports * Exam Date Time Procedure Performing Provider Status 11/10/22 7:47 PM XR Hand Complete 3+ Views Right DomainUser, Generated; Auth (Verified) Notes: (XR Hand Complete 3+ Views Right) Reason For Exam: hand trauma XR Hand Complete 3+ Views Right EXAM DESCRIPTION: XR Hand Complete 3+ Views Right 11/10/2022 INDICATION: HAND TRAUMA COMPARISON: None IMPRESSION: Mildly displaced traumatic fractures involving the distal aspect of the 3rd and 4th distal phalanges with regional soft tissue swelling. Initial fracture diagnosis Otherwise no acute fracture or dislocation Mild deformity involving the distal aspect of the 5th metacarpal suggesting sequela of old, healed fracture Small punctate soft tissue foreign bodies in the distal 3rd and 4th digits with regional soft tissue swelling and soft tissue deformity suggesting soft tissue injury. Mild dorsal hand region soft tissue swelling. No regional arthritic changes. MCP and IP joint spaces are well maintained. JOB #: [id number] Final Signed by: Rogers Villa MD Signed (Electronic Signature): 11/10/2022 9:31 pm Vital Signs Most recent to oldest [Reference Range]: 1 Temperature Tympanic [36.6-37.9 Deg C] 3 6.4 Deg C *LOW* (11/10/22 7:17 PM) Peripheral Pulse Rate [60-100 bpm] 100 b pm (11/10/22 7:17 PM) Respiratory Rate [12-24 br/min] 22 br/mi n (11/10/22 7:17 PM) Blood Pressure [90-140/60-90 mmHg] 184/1 12mmHg *HI* (11/10/22 7:17 PM) Weight 136.00 kg (11/10/22 7:17 PM) Weight Dosing 136.00 kg (11/10/22 7:28 PM) Height 160.000 cm (11/10/22 7:17 PM) Height/Length Dosing 160.000 cm (11/10/22 7:28 PM) Body Mass Index 53.000 kg/m2 (11/10/22 7:17 PM) Social History Social History Type Response Tobacco Never tobacco user T obacco Use:. Sex Hospital Discharge Instructions Patient Education 11/10/2022 20:05:14 Laceration Care, Adult Laceration Care, Adult A laceration is a cut that may go through all layers of the skin and into the tissue that is right under the skin. Some lacerations heal on their own. Others need to be closed with stitches (sutures), tianna, skin adhesive strips, or skin glue. Proper care of a laceration reduces the risk for infection, helps the laceration heal better, and may prevent scarring. General tips ??? Keep the wound clean and dry. ??? Do not scratch or pick at the wound. ??? Wash your hands with soap and water for at least 20 seconds before and after touching your wound or changing your bandage (dressing). If soap and water are not available, use hand powder worker. ??? Do not usedisinfectants or antiseptics, such as rubbing alcohol, to clean your wound unless told by your health care provider. ??? If you were given a dressing, you should change it at least once a day, or as told by your health care provider. You should also change it if it becomes wet or dirty. How to care for your laceration If sutures or tianna were used: ??? Keep the wound completely dry for the first 24 hours, or as told by your health care provider. After that time, you may shower or bathe. Do not soak your wound in water until after the sutures orstaples have been removed. ??? Clean the wound once each day, or as told by your health care provider. To do this: ??? Wash the wound with soap and water. ??? Rinse the wound with water to remove all soap. ??? Pat the wound dry with a clean towel. Do not rub the wound. ??? After cleaning the wound, apply a thin layer of antibiotic ointment, other topical ointments, or a non-adherent dressing as told by your health care provider. This will help prevent infection andkeep the dressing from sticking to the wound. ??? Have the sutures or tianna removed as told by your health care provider. Do not remove suturesor tianna yourself. If skin adhesive strips were used: ??? Do not get the skin adhesive strips wet. You may shower or bathe, but keep the wound dry. ??? If the wound gets wet, pat it dry with a clean towel. Do not rub the wound. ??? Skin adhesive strips fall off on their own. If adhesive strip edges start to loosen and curl up, you may trim the loose edges. Do not remove adhesive strips completely unless your health care provider tells you to do that. If skin glue was used: ??? You may shower or bathe, but try to keep the wound dry. Do not soak the wound in water. ??? After showering or bathing, pat the wound dry with a clean towel. Do not rub the wound. ??? Do not do any activities that will make you sweat a lot until the skin glue has fallen off. ??? Do not apply liquid, cream, or ointment medicine to the wound while the skin glue is in place. Doing this may loosen the film before the wound has healed. ??? If a dressing is placed over the wound, do not apply tape directly over the skin glue. Doing this may cause the glue to be pulled off before the wound has healed. ??? Do not pick at the glue. Skin glue usually remains in place for 5???10 days and then falls off the skin. Follow these instructions at home: Medicines ??? Take snjs-otf-[id number] and prescription medicines only as told by your health care provider. ??? If you were prescribed an antibiotic medicine or ointment, take or apply it as told by your health care provider. Do not stop using it even if your condition improves. Managing pain and swelling ??? If directed, put ice on the injured area. To do this: ??? Put ice in a plastic bag. ??? Place a towel between your skin and the bag. ??? Leave the ice on for 20 minutes, 2???3 times a day. ??? Remove the ice if your skin turns bright red. This is very important. If you cannot feel pain, heat, or cold, you have a greater risk of damage to the area. ??? Raise (elevate) the injured area above the level of your heart while you are sitting or lying down for the first 24???48 hours after the laceration is repaired. General instructions ??? Avoid any activity that could cause your wound to reopen. ??? Check your wound every day for signs of infection. Watch for: ??? More redness, swelling, or pain. ??? Fluid or blood. ??? Warmth. ??? Pus or a bad smell. ??? Keep all follow-up visits. This is important. Contact a health care provider if: ??? You received a tetanus shot and you have swelling, severe pain, redness, or bleeding at the injection site. ??? Your closed wound breaks open. ??? You have any of these signs of infection: ??? More redness, swelling, or pain around your wound. ??? Fluid or blood coming from your wound. ??? Warmth coming from your wound. ??? Pus or a bad smell coming from your wound. ??? A fever. ??? You notice something coming out of the wound, such as wood or glass. ??? Your pain is not controlled with medicine. ??? You notice a change in the color of your skin near your wound. ??? You need to change the dressing often. ??? You develop a new rash. ??? You have numbness around the wound. Get help right away if: ??? You develop severe swelling around the wound. ??? Your pain suddenly increases and is severe. ??? You develop painful lumps near the wound or on skin anywhere else on your body. ??? You have a red streak going away from your wound. ??? The wound is on your hand or foot, and you cannot properly move a finger or toe. ??? The wound is on your hand or foot, and you notice that your fingers or toes look pale or bluish. Summary ??? A laceration is a cut that may go through all layers of the skin and into the tissue that is right under the skin. ??? Some lacerations heal on their own. Others need to be closed with stitches (sutures), tianna, skin adhesive strips, or skin glue. ??? Proper care of a laceration reduces the risk of infection, helps the laceration heal better, and may prevent scarring. This information is not intended to replace advice given to you by your health care provider. Make sure you discuss any questions you have with your health care provider. Document Revised: 10/23/2021 Document Reviewed: 10/23/2021 [employer] Patient Education ?? 2021 [employer] Follow Up Care 11/10/2022 19:17:19 With:SHONA Murray Address: [address] [place] [address] When: Unknown Comments:Your evaluation in the emergency department today??was performed by clara LOVETT.Return to the emergency department??in 10 days for suture removalKeep area clean and dryWear??finger protectors as desired Discharge instructions * Event Display: Discharge Instructions Physician Emergency department Note * SHONA Murray: PERFORM Event Display: ED Note Physician Authored Date: [id number] MAYJOANIE :1980 Age:42 years Sex:Male Visit Date:11/10/2022 Primary Care Physician: KADE REINOSO APRN Basic Information Time Seen: SHONA Murray / 11/10/2022 19:32 Chief Complaint pt reports snowblower to right land 3 lacerations to 3rd and 4th digits dirty bleeding stopped fat protruding needs tetanus History Of Present Illness: Patient is a 42-year-old male who presents to the emergency department??after unfortunately??havingan incident where??he assumed that the auger for the snowblower was no longer spinning??he went to clear snow and caught the tips of his finger??as it was idling down.?? He??got struck by the auger immediately pulled back and noted 2 lacerations to his??right??ring and middle finger. Patient applied pressure??and was driven direct to the emergency department Patient is uncertain of his last tetanus but feels that it was somewhere in the??17-year ago range. He is otherwise uninjured has some numbness and pressure to the tips of his fingers??but no other injuries. Review of Systems: See HPI for details Physical Exam Vitals & Measurements T:??36.4?C ??(Tympanic)?? HR:??100??(Peripheral)?? RR:??22?? BP:??184/112?? SpO2:??97%?? HT:??160.000??cm?? WT:??136.00??kg?? BMI:??53.000?? Pain Score:??8?? Patient is alert oriented age-appropriate nontoxic Neck is supple EOM intact, PERRL, sclera anicteric Regular rate and effort Skin is warm and dry There is 2 distinct lacerations, one is on the pad??of the long finger??which is 2 separate lacerations both approximately 1.5 cm?? by approximately??1 cm of tissue The second is a approximately 1 cm laceration to the pad of the ring finger Bilateral subungual hematomas are appreciated over these 2 fingers and??no other injuries are appreciated. ??Range of motion of the digits is intact including DIPs Medical Decision Making: With consent of the patient digital blocks are performed??the patient has almost immediate relief of his discomfort. ??An 18-gauge needle is utilized to perform evacuation of subungual hematomas??andpatient has good relief with this A total of??3 sutures are placed in the ring finger??with good approximation of wound edges and??hemostasis Total of six 5-0 sutures are placed??with good wound approximation, bleeding is controlled??in the??middle finger Areas covered with Telfa dressing and tube gauze dressing. Patient was given his Tdap while here in the emergency department as he has??no idea when his last??vaccination was Patient required no interventions other than above. Procedure No Qualifying Data Assessment/Plan 1.??Finger laceration??S61.219A Patient will be discharged He will??return in 7 to 10 days for suture removal He will keep his area clean and dry. ??He is given a work note??to state that he does not need to go to work tomorrow if he is pain is intense however he may return the day after. ??Patient feels as though he will most likely go to work tomorrow.?? If he has any new or worsening symptoms questions or bleeding he will return for reevaluation. Patient be started on Keflex and given the first dose here??as he does have tuft fractures??which should be covered Patient understands all aspects of today's discharge Orders: cephalexin 500 mg oral capsule, 500 mg = 1 cap, Oral, every 12 hr, # 20 cap, 0 Refill(s), 11/21/22 21:00:00 EDT, Pharmacy: [facility], 160, cm, 11/10/22 19:28:00 EDT, Height/Length Dosing, 136,kg, 11/10/22 19:28:00 EDT, Weight Dosing Discharge Patient, 11/10/22 20:59:00 EDT Patient Education Laceration Care, Adult Follow Up With When Contact Information SHONA Murray [address] [place] [address] Additional Instructions: Your evaluation in the emergency department today??was performed by above RACHELL. ?? Return to the emergency department??in 10 days for suture removal Keep area clean and dry Wear??finger protectors as desired Medication Reconciliation New Prescription cephalexin (cephalexin 500 mg oral capsule)1 Capsules Oral (given by mouth) every 12 hours. Refills: 0. ?? Unchanged chlorthalidone (chlorthalidone 25 mg oral tablet)TAKE 1 TABLET BY MOUTH EVERY DAY. ?? metoprolol (Metoprolol Succinate ER 100 mg oral tablet, extended release)TAKE 1 TABLET BY MOUTH EVERY DAY. Problem List/Past Medical History Ongoing Morbid obesity Historical No qualifying data Medication Administration Given Adacel (Tdap), 0.5 mL, IM cephalexin, 500 mg, Oral Allergies penicillin Social History Electronic Cigarette/Vaping Electronic Cigarette Use: Never. Tobacco Never tobacco user Tobacco Use:. Diagnostic Results XR Hand Complete 3+ Views Right 11/10/2022 21:33 EDT XR Hand Complete 3+ Views Right ?? 11/10/22 21:31:12 EXAM DESCRIPTION: XR Hand Complete 3+ Views Right ?? 11/10/2022 ?? INDICATION: HAND TRAUMA ?? COMPARISON: None ?? IMPRESSION: Mildly displaced traumatic fractures involving the distal aspect of the 3rd and 4th distal phalanges with regional soft tissue swelling. Initial fracture diagnosis ?? Otherwise no acute fracture or dislocation ?? Mild deformity involving the distal aspect of the 5th metacarpal suggesting sequela of old, healed fracture ?? Small punctate soft tissue foreign bodies in the distal 3rd and 4th digits with regional soft tissue swelling and soft tissue deformity suggesting soft tissue injury. ?? Mild dorsal hand region soft tissue swelling. ?? No regional arthritic changes. MCP and IP joint spaces are well maintained. ? JOB #: [id number] SHONA Murray Emergency department Discharge instructions * SHONA Murray: PERFORM Event Display: ED Discharge Information Authored Date: DecemberJOANIE :1980 Age:42 years Sex:Male Visit Date:11/10/2022 Primary Care Physician: KADE REINOSO APRN Discharge Instructions We would like to thank you for allowing us to assist you with your healthcare needs. The following includes patient education materials and information regarding your injury/illness. Diagnosis from Today's Visit Finger laceration Discharge Vitals Temperature??(Tympanic) 97.5 ??F (36.4 ??C) Heart Rate??(Peripheral) 100 Respiratory Rate?? 22 Blood Pressure?? 184/112?? Height?? 62.99 in (160.000 cm) Weight?? 299.88 lb (136.00 kg) BMI?? 53.000 Allergies penicillin What to Do Next You Need to Schedule the Following Appointments Follow Up with??SHONA Murray Why: Your evaluation in the emergency department today??was performed by clara LOVETT. ?? Return to the emergency department??in 10 days for suture removal Keep area clean and dry Wear??finger protectors as desired Where: [address] [place] [address] You were treated today on an emergency basis; it may be garsia to contact your primary care provider to notify them of your visit today. You may have been referred to your regular doctor or a specialist, please follow up as instructed. If your condition worsens or you can't get in to see the doctor, contact the Emergency Department. Medications What How Much When Instructions Next Dose New cephalexin (cephalexin 500 mg oral capsule) 1 Capsules Oral (given by mouth) Every 12 hours Pickup at [facility] Unchanged chlorthalidone (chlorthalidone 25 mg oral tablet) TAKE 1 TABLET BY MOUTH EVERY DAY ?? Unchanged metoprolol (Metoprolol Succinate ER 100 mg oral tablet, extended release) TAKE 1 TABLET BY MOUTH EVERY DAY ?? Pharmacy Information [facility]: [address] [facility] [place], [place] [id number] [phone] Education Materials Laceration Care, Adult A laceration is a cut that may go through all layers of the skin and into the tissue that is right under the skin. Some lacerations heal on their own. Others need to be closed with stitches (sutures), tianna, skin adhesive strips, or skin glue. Proper care of a laceration reduces the risk for infection, helps the laceration heal better, and may prevent scarring. General tips ? Keep the wound clean and dry. ? Do not scratch or pick at the wound. ? Wash your hands with soap and water for at least 20 seconds before and after touching your wound orchanging your bandage (dressing). If soap and water are not available, use hand powder worker. ? Do not usedisinfectants or antiseptics, such as rubbing alcohol, to clean your wound unless told byyour health care provider. ? If you were given a dressing, you should change it at least once a day, or as told by your health care provider. You should also change it if it becomes wet or dirty. How to care for your laceration If sutures or tianna were used: ? Keep the wound completely dry for the first 24 hours, or as told by your health care provider. After that time, you may shower or bathe. Do not soak your wound in water until after the sutures or tianna have been removed. ? Clean the wound once each day, or as told by your health care provider. To do this: ? Wash the wound with soap and water. ? Rinse the wound with water to remove all soap. ? Pat the wound dry with a clean towel. Do not rub the wound. ? After cleaning the wound, apply a thin layer of antibiotic ointment, other topical ointments, or a non-adherent dressing as told by your health care provider. This will help prevent infection and keep the dressing from sticking to the wound. ? Have the sutures or tianna removed as told by your health care provider. Do not remove sutures or tianna yourself. If skin adhesive strips were used: ? Do not get the skin adhesive strips wet. You may shower or bathe, but keep the wound dry. ? If the wound gets wet, pat it dry with a clean towel. Do not rub the wound. ? Skin adhesive strips fall off on their own. If adhesive strip edges start to loosen and curl up, you may trim the loose edges. Do not remove adhesive strips completely unless your health care provider tells you to do that. If skin glue was used: ? You may shower or bathe, but try to keep the wound dry. Do not soak the wound in water. ? After showering or bathing, pat the wound dry with a clean towel. Do not rub the wound. ? Do not do any activities that will make you sweat a lot until the skin glue has fallen off. ? Do not apply liquid, cream, or ointment medicine to the wound while the skin glue is in place. Doing this may loosen the film before the wound has healed. ? If a dressing is placed over the wound, do not apply tape directly over the skin glue. Doing this may cause the glue to be pulled off before the wound has healed. ? Do not pick at the glue. Skin glue usually remains in place for 5???10 days and then falls off the skin. Follow these instructions at home: Medicines ? Take [id number] and prescription medicines only as told by your health care provider. ? If you were prescribed an antibiotic medicine or ointment, take or apply it as told by your health care provider. Do not stop using it even if your condition improves. Managing pain and swelling ? If directed, put ice on the injured area. To do this: ? Put ice in a plastic bag. ? Place a towel between your skin and the bag. ? Leave the ice on for 20 minutes, 2???3 times a day. ? Remove the ice if your skin turns bright red. This is very important. If you cannot feel pain, heat, or cold, you have a greater risk of damage to the area. ? Raise (elevate) the injured area above the level of your heart while you are sitting or lying down for the first 24???48 hours after the laceration is repaired. General instructions ? Avoid any activity that could cause your wound to reopen. ? Check your wound every day for signs of infection. Watch for: ? More redness, swelling, or pain. ? Fluid or blood. ? Warmth. ? Pus or a bad smell. ? Keep all follow-up visits. This is important. Contact a health care provider if: ? You received a tetanus shot and you have swelling, severe pain, redness, or bleeding at the injection site. ? Your closed wound breaks open. ? You have any of these signs of infection: ? More redness, swelling, or pain around your wound. ? Fluid or blood coming from your wound. ? Warmth coming from your wound. ? Pus or a bad smell coming from your wound. ? A fever. ? You notice something coming out of the wound, such as wood or glass. ? Your pain is not controlled with medicine. ? You notice a change in the color of your skin near your wound. ? You need to change the dressing often. ? You develop a new rash. ? You have numbness around the wound. Get help right away if: ? You develop severe swelling around the wound. ? Your pain suddenly increases and is severe. ? You develop painful lumps near the wound or on skin anywhere else on your body. ? You have a red streak going away from your wound. ? The wound is on your hand or foot, and you cannot properly move a finger or toe. ? The wound is on your hand or foot, and you notice that your fingers or toes look pale or bluish. Summary ? A laceration is a cut that may go through all layers of the skin and into the tissue that is right under the skin. ? Some lacerations heal on their own. Others need to be closed with stitches (sutures), tianna, skinadhesive strips, or skin glue. ? Proper care of a laceration reduces the risk of infection, helps the laceration heal better, and may prevent scarring. This information is not intended to replace advice given to you by your health care provider. Make sure you discuss any questions you have with your health care provider. Document Revised: 10/23/2021 Document Reviewed: 10/23/2021 [employer] Patient Education ?? 2021 [employer] Tests Performed Medications and Immunizations Administered Given Adacel (Tdap), 0.5 mL, IM Patient/Farm Boss Signature Patient Name:DECEMBERTREVERJOANIE Fede I have received this information and my questions have been answered. Patient/Farm Boss Name: Patient/Farm Boss Signature: Relationship to Patient: Witness Name/Signature: Date: Electronically Signed on: 11/10/2022 21:06 EDTSigned by:AB XR Hand - right GE 3 Views * Rogers Villa MD: VERIFY, VERIFY Event Display: Report EXAM DESCRIPTION: XR Hand Complete 3+ Views Right 11/10/2022 INDICATION: HAND TRAUMA COMPARISON: None IMPRESSION: Mildly displaced traumatic fractures involving the distal aspect of the 3rd and 4th distal phalanges with regional soft tissue swelling. Initial fracture diagnosis Otherwise no acute fracture or dislocation Mild deformity involving the distal aspect of the 5th metacarpal suggesting sequela of old, healed fracture Small punctate soft tissue foreign bodies in the distal 3rd and 4th digits with regional soft tissue swelling and soft tissue deformity suggesting soft tissue injury. Mild dorsal hand region soft tissue swelling. No regional arthritic changes. MCP and IP joint spaces are well maintained. JOB #: [id number] Final Signed by: Rogers Villa MD Signed (Electronic Signature): 11/10/2022 9:31 pm Patient Care team information Care Team Personnel Name: KADE REINOSO APRN Position: No Access Member Role: Primary Care Physician Address: Address: [address] [place] [id number] Name: SHONA Murray Position: Physician Member Role: Physician Elevator Tender Address: Address: [address] [place] [id number] Name: Corine Smith Position: Nurse Member Role: ED Nurse Care Team Related Persons Name: ИВАН LARSON
--- NOTE | 2023-07-06 09:55 | ED.GENADUL_ITS ---
Discharge Plan Disposition Patient Disposition: Admit to [facility] Condition: Serious Discharge Details Clinical Impression: Pulmonary infiltrate, Hypertensive emergency, Cocaine abuse Admit Date/Time: 07/06/23 14:09 Admit Provider: Teresita Matthews Attending Provider: Teresita Matthews ED Provider: Jean-Pierre Hutchinson Discharge Data Discharge Date/Time-TO BE ENTERED AT DEPARTURE: 07/06/23 15:09 Medical Decision Making 955 --43-year-old male with history of hypertension, here with progressive shortness of breath and chest discomfort over the past 3 days. Patient is severely hypertensive and tachycardic. He saturating well in no respiratory distress. Patient did have hospitalization at [facility] a few months ago and notes he had cardiac catheterization that was unremarkable but did have fluid around his heart that needed to be drained. EKG was reviewed interpreted by me: Please report, sinus tachycardia 100 bpm, LVH, anterior elevation likely secondary to LVH. -- Labs reviewed and UDS concerning for cocaine. I will give Ativan 1 mg IV. D-dimer is elevated. I will pursue CT of the chest to assess for pulmonary embolism. 1215 --CT of the chest was interpreted by radiology: 1. No evidence of acute pulmonary emboli, as per request..No evidence of pulmonary infarction. 2. However, there are confluent non cavitated ground-glass nodular infiltrates in the right upper lobe corresponding to the subtle finding on today's chest radiograph. Average size of these nodular infiltrates is 2.3 cm. There is also a smaller nodular infiltrate in the right lower lobe medial basal segment. There are no pleural effusions. 3. There is subcarinal adenopathy as well as a few slightly enlarged lymph nodes in the anterior left mediastinal fat and slightly prominent bilateral hilar lymph nodes. Patient reassessed remains hypertensive. Plan to initiate treatment with nicardipine drip and admit the patient for further treatment. 1252 -- Patient reassessed, he is anxious about staying in the hospital noting that he feels like he is in fpc when he has been hospitalized here in the past. He is agreeable to an additional anxiolytic and I will give Ativan 1 mg IV. He is agreeable to hospitalization at this point. Patient does note recent dry cough. He is afebrile with no leukocytosis. --Nicardipine drip titrated to effect and had adequate reduction in blood pressure. I obtained and reviewed outside hospital records from [facility], cardiac catheterization 03/17/2023 reveals right dominant system with mild diffuse coronary artery disease. He was treated for hypertensive emergency during that hospitalization as well as nonobstructive coronary artery disease. NSTEMI was felt to be secondary to hypertensive emergency with possible cocaine adverse reaction. He was also noted to have acute on chronic diastolic heart failure. There is also concern for possible atypical pneumonia. 1424 --Case discussed with Dr. Matthews, on-call hospitalist. We reviewed ED presentation course. She will admit the patient. Lab Data Lab results reviewed: Yes I reviewed the patient's lab results. Labs: Laboratory Tests Range/Units 07/06/23 07/06/23 09:46 10:25 WBC (4.4-10.8) 10^3/uL 10.15 RBC (4.36-5.78) 10^6/uL 4.60 Hgb (13.5-17.5) g/dL 13.2 L Hct (40.0-50.0) % 39.2 L MCV (80-95) fL 85 MCH (27.0-33.0) pg 28.7 MCHC (32.0-36.0) % 33.7 RDW (11.8-14.1) % 12.3 Plt Count (130-400) 10^3/uL 292 MPV (8.0-11.0) fL 9.7 Immature Gran % 0.4 Neutrophils % 76.8 Lymphocytes % 14.5 Monocytes % 6.3 Eosinophils % 1.3 Basophils % 0.7 Nucleated RBC % (0.0-0.3) % 0.0 Absolute Neutrophils (1.2-6.7) 10^3/uL 7.80 H Absolute Lymphocytes (1.2-3.4) 10^3/uL 1.47 Absolute Monocytes (0.1-0.8) 10^3/uL 0.64 Absolute Eosinophils (0.0-0.7) 10^3/uL 0.13 Absolute Basophils (0.0-0.2) 10^3/uL 0.07 D-Dimer (<500) ng/mlFEU 1599 H Sodium (136-145) mmol/L 136 Potassium (3.5-5.1) mmol/L 3.8 Chloride (98-107) mmol/L 102 Carbon Dioxide (21.0-32.0) mmol/L 25.6 Anion Gap (3-11) mmol/L 8.4 BUN (7-18) mg/dL 13 Creatinine (0.70-1.30) mg/dL 0.9 Est GFR (CKD-EPI 2020) (mL/min/1.73m2) 110.04 Glucose (74-106) mg/dL 186 H Calcium (8.5-10.1) mg/dL 8.9 Magnesium (1.8-2.4) mg/dL 1.8 Total Bilirubin (0.2-1.0) mg/dL 0.9 AST (15-37) U/L 37 ALT (16-63) U/L 68 H Alkaline Phosphatase (46-116) U/L 87 Troponin I (<or=60) ng/L < 50 NT-Pro-B Natriuret Pep (<300) pg/mL 822 H Total Protein (6.4-8.2) g/dL 7.1 Albumin (3.4-5.0) g/dL 3.5 Urine Opiates Screen (Negative) Negative Urine Methadone Screen (Negative) Negative Ur Barbiturates Screen (Negative) Negative Ur Tricyclics Screen (Negative) Negative Ur Amphetamines Screen (Negative) Negative U Benzodiazepines Scrn (Negative) Negative Urine Cocaine Screen (Negative) Positive A Ur THC Screen (Negative) Positive A HPI General Mode of arrival: ambulatory . Date/Time Provider Initiated Documentation: 07/06/23 09:31 . Limitations to Documentation: no limitations . Information obtained by: patient . HPI Narrative: 43-year-old male with history of hypertension, presents with chief complaint of shortness of breath. Patient notes shortness of breath progressing for the past 3 days with associated chest discomfort that feels like a pressure and as though he cannot get a full breath. Symptoms are worse lying flat. He has no associated leg swelling. Patient notes he regularly has bilateral calf pain. Related Data Home Medications Medication Instructions Recorded Confirmed amlodipine 5 mg tablet 5 mg PO DAILY #90 tabs 07/07/23 chlorthalidone 25 mg tablet 25 mg PO DAILY #90 tabs 07/07/23 valsartan 80 mg tablet (Diovan) 240 mg (3 x 80 mg) PO DAILY #90 07/07/23 tabs Previous Rx's Medication Instructions Recorded amlodipine 5 mg tablet 5 mg PO DAILY #90 tabs 07/07/23 chlorthalidone 25 mg tablet 25 mg PO DAILY #90 tabs 07/07/23 valsartan 80 mg tablet (Diovan) 240 mg (3 x 80 mg) PO DAILY #90 07/07/23 tabs Allergies Allergy/AdvReac Type Severity Reaction Status Date / Time Penicillins Allergy Mild Unverified 07/06/23 10:05 General Stated Complaint: SOB EFRAIN: 2 Review of Systems All systems reviewed & are unremarkable except as noted in HPI and below Constitutional Constitutional: Denies fever(s) Cardiovascular Cardiovascular: Reports as per HPI Respiratory Respiratory: Reports as per HPI Gastrointestinal Gastrointestinal: Denies abdominal pain PFSH All Active Problems (Updated 07/08/23 @ 00:05 by TIFFANIE COELHO) Cocaine abuse (Acute) Pulmonary infiltrate (Acute) Cocaine abuse (Chronic) Pulmonary infiltrate (Acute) Hypertensive urgency (Acute) Obesity, morbid, BMI 40.0-49.9 (Acute) GERD (gastroesophageal reflux disease) (Chronic) Hypertension (Chronic) Hypokalemia (Acute) Abscess of left forearm (Acute) Dog bite of left forearm with infection (Acute) Cellulitis of left forearm (Acute) No-show for appointment (Acute) Medical History Pneumonia Surgical History S/P tendon repair 3rd digit RUE Family History Mother Hypertension Father Hypertension Social History Smoking/Tobacco Use Status: Never Smoking risk assessment performed?: Yes Alcohol Intake: current Alcohol Intake frequency: a few times a week Alcohol type: beer Counseling given: Yes Counseling provided: reduce to 2 or less/day Drug use: Occasionally Substance use type: marijuana and crack/cocaine Details: States he no longer uses Housing: house Current gender identity: male Do you feel safe at home: Yes Do you feel safe in your relationship?: Yes Exam Const General: cooperative and no acute distress HENMT Mouth: moist mucous membranes Eyes Conjunctivae: normal conjunctivae Sclera: normal sclerae Neck Neck: trachea midline and supple Resp Auscultation: clear to auscultation bilaterally, no rales, no rhonchi and no wheezes Cardio Rate: tachycardic Rhythm: regular rhythm GI Palpation: soft, not firm, no guarding, no masses, not rigid and nontender Skin General skin exam: no rashes or lesions noted Neuro General: patient alert, patient awake, patient oriented x3 and tone normal Extrem General: calf tenderness bilaterally and no edema Psych Appearance: grossly normal Mental Status: mental status grossly normal Course Vital Signs Vital signs: Vital Signs Temperature 36.6 C 07/06/23 09:31 Respiratory Rate 20 07/06/23 09:31 Blood Pressure 219/141 H 07/06/23 09:31 Pulse Oximetry 97 07/06/23 09:31 Temperature 36.6 C 07/06/23 09:31 Temperature Source Oral 07/06/23 09:31 Respiratory Rate 20 07/06/23 09:31 Respiratory Effort Short of Breath 07/06/23 09:39 Blood Pressure 219/141 H 07/06/23 09:31 Blood Pressure Position Sitting 07/06/23 09:31 Pulse Oximetry 97 07/06/23 09:31 Oxygen Delivery Method Room Air 07/06/23 09:31 Oxygen Flow Rate 0 07/06/23 09:31 Pain Level 2 07/06/23 09:31 Critical Care Time Critical Care Time Critical Care Time: Yes Total Critical Care Time: 50 Attestation: I spent greater than 50 minutes addressing this patient's immediate life threats. Please see MDM section of note. This time was spent engaged in work directly related to the patient's care, exclusive of separate procedures, and failure to initiate these interventions would have likely resulted in clinically significant or life threatening deterioration in the patient's condition. PAWSS Have you Been Recently Intoxicated or Drunk Within the Last 30 days?: Yes Have you Ever Experienced Previous Episodes of Alcohol Withdrawal?: No Have you ever Experienced Withdrawal Seizures?: No Have you ever Experienced Delirium Tremens(DT)s?: No Have you ever undergone Alcohol Rehabilitation Treatment (i.e, inpt ot outpatient treatment programs)?: No Have you ever Experienced Blackouts?: No Have you ever Combined Alcohol with other Downers within the last 90 days?: No Have you ever Combined Alcohol with any other Substance of Abuse during the last 90 days?: No Positive Blood Alcohol level on Presentation? [PCS.BAL]: No Evidence of Increased Autonomic Activity (i.e. HR>120, tremor, sweating, agitation, nausea)?: No Result: 1
[2023-07-06 10:05] LABS: Abs Immature Grans 0.04 10^3/uL (0.0-0.06); Absolute Basophil Count 0.07 10^3/uL (0.0-0.2); Absolute Eosinophil Count 0.13 10^3/uL (0.0-0.7); Absolute Lymphocyte Count 1.47 10^3/uL (1.2-3.4); Absolute Monocyte Count 0.64 10^3/uL (0.1-0.8); Basophils % 0.7; Eosinophils % 1.3; HCT 39.2 % (40.0-50.0); HGB 13.2 g/dL (13.5-17.5); Immature Grans % 0.4; Lymphocytes % 14.5; MCH 28.7 pg (27.0-33.0); MCHC 33.7 % (32.0-36.0); MCV 85 fL (80-95); MPV 9.7 fL (8.0-11.0); Monocytes % 6.3; Neutrophils % 76.8; Platelet Count 292 10^3/uL (130-400); RDW 12.3 % (11.8-14.1); RDW-SD 37.9 fL; WBC 10.15 10^3/uL (4.4-10.8)
[2023-07-06 10:28] LABS: ALT 68 U/L (16-63); AST 37 U/L (15-37); Albumin 3.5 g/dL (3.4-5.0); Alkaline Phosphatase 87 U/L (46-116); Anion Gap 8.4 mmol/L (3-11); BUN 13 mg/dL (7-18); Bilirubin, Total 0.9 mg/dL (0.2-1.0); CO2 25.6 mmol/L (21.0-32.0); CREATININE 0.9 mg/dL (0.70-1.30); Calcium 8.9 mg/dL (8.5-10.1); Chloride 102 mmol/L (98-107); Estimated GFR 110.04 (mL/min/1.73m2); Glucose 186 mg/dL (74-106); Magnesium 1.8 mg/dL (1.8-2.4); NT-proBNP 822 pg/mL (<300); Potassium 3.8 mmol/L (3.5-5.1); Sodium 136 mmol/L (136-145); Total Protein 7.1 g/dL (6.4-8.2); Troponin I < 50 ng/L (<or=60)
[2023-07-06 10:35] LABS: D-Dimer 1599 ng/mlFEU (<500)
[2023-07-06 10:49] LABS: *AMPHETAMINES SCREEN URINE Negative (Negative); *BARBITURATES SCREEN URINE Negative (Negative); *BENZODIAZEPINES SCREEN URINE Negative (Negative); Cannabinoids THC Positive (Negative); Cocaine Screen,Urine Positive (Negative); METHADONE URINE SCREEN Negative (Negative); OPIATES URINE SCREEN Negative (Negative); Tricyclic Antidepressants Negative (Negative)
--- NOTE | 2023-07-06 10:49 | DI.RAD_ITS ---
Exam(s) XR PORTABLE CHEST AP EXAM: XR PORTABLE CHEST AP CLINICAL HISTORY: chest pressure. TECHNIQUE: 2D digital imaging was performed. COMPARISON: CR,XR XR RIBS RT W PA LAT CHEST from 10/07/2022 FINDINGS: Single AP portable view. Heart size is upper normal. The mediastinum is not widened. Left lung is clear. Slightly increased markings in the medial aspect of the right upper lobe. No pleural effusions. No pneumothorax. No fractures. IMPRESSION: Mild increased markings medial aspect right upper lobe. Recommend nonportable PA and lateral views w hen clinically possible. DATA REPOSITORY: RADIATION DOSE DELIVERED:
--- NOTE | 2023-07-06 11:15 | DI.CT_ITS ---
Exam(s) CT CHEST PE CTA EXAM: CT CHEST PE CTA CLINICAL HISTORY: tachycardia, chest pain, sob, elev ddimer. TECHNIQUE: Imaging Protocol: CT angiography of the chest was performed using pulmonary embolus jonel col. Multi planar reconstructions were performed. CONTRAST MATERIAL: Intravenous: Omnipaque 350 Contrast volume: 100 cc COMPARISON: CR LEFT SHOULDER COMPLETE from 09/14/2016 CR,XR XR RIBS RT W PA LAT CHEST from 10/07/2022 CR XR CLAVICLE RT from 10/21/2022 CR XR PORTABLE CHEST AP from 07/06/2023 FINDINGS: CHEST: PULMONARY ARTERIES: There are no intraluminal filling defects to suggest acute pulmonary emboli. LUNGS: There are multiple ground-glass nodular infiltrates in the right upper lobe, above the level t he hilum and corresponding to what is seen on today's chest x-ray.. There is a similar but smaller 1 cm nodular infiltrate in the medial basal segment of the right lower lobe. There is mild increased markings in the posterior basal segment of the right lower lobe. There are no findings in the right middle lobe. No pleural effusions. Opposite-left lung reveals mild ground-glass infiltrate posteriorly in the upper lobe with no other s ignificant left lung findings and no pleural effusion. There are no significant focal findings in the trachea and mainstem bronchi. There is no bronchiecta sis. MEDIASTINUM: There are enlarged lymph nodes in the anterior left para-aortic mediastinal fat. Minima lly prominent right paratracheal lymph nodes. There are prominent subcarinal lymph nodes. Small lym ph nodes noted in both hilar regions. No supraclavicular adenopathy. There is no axillary adenopath y. CARDIAC: Heart size is upper normal. There is no pericardial effusion.Caliber of the thoracic aorta is within normal limits. No evidence of aortic dissection. There is no significant shift of the inte rventricular septum. PARTIALLY VISUALIZED UPPERMOST ABDOMEN: No obvious findings OSSEOUS: There are healed fractures of the left 10th and 11th ribs. No acute fractures evident. No osseous lesions. IMPRESSION: 1. No evidence of acute pulmonary emboli, as per request..No evidence of pulmonary infarction. 2. However, there are confluent non cavitated ground-glass nodular infiltrates in the right upper lob e corresponding to the subtle finding on today's chest radiograph. Average size of these nodular inf iltrates is 2.3 cm. There is also a smaller nodular infiltrate in the right lower lobe medial basal segment. There are no pleural effusions. 3. There is subcarinal adenopathy as well as a few slightly enlarged lymph nodes in the anterior left mediastinal fat and slightly prominent bilateral hilar lymph nodes. Called to ER RADIATION DOSE DELIVERED: Total DLP DATA REPOSITORY: All CT scans at this facility are submitted to the National Radiology Data Registry (NRDR) Dose Index Registry (DIR) with the [employer] (ACR). RADIATION OPTIMIZATION: All CT scans at this facility use at least one of these dose optimization te chniques: automated exposure control; mA and/or kV adjustment per patient size (includes targeted exa ms where dose is matched to clinical indication); or iterative reconstruction.
[2023-07-06] MEDS: LORazepam 2 MG/ML VIAL 1 MG IVP ×2 (11:28→12:50)
[2023-07-06] MEDS: Normal Saline - Diluent 50 ML VIAL IJ (11:37)
[2023-07-06] MEDS: Omnipaque 350 MG/ML 100 ML BTL IJ (11:38)
[2023-07-06] MEDS: Normal Saline Flush 10 ML SYR IVP ×4 (11:39→21:37)
[2023-07-06] MEDS: niCARdipine 25 MG in Normal Saline 240 ML 50 MG IV (12:50)
[2023-07-06 13:11] LABS: Source Nasal/Nares
[2023-07-06 13:38] LABS: Troponin I < 50 ng/L (<or=60)
[2023-07-06 13:42] LABS: COVID-19 PCR Negative (Negative)
--- NOTE | 2023-07-06 14:10 | HPE_ITS ---
Date of service: 07/06/23 Time of Service: 14:10 Assessment and Plan Assessment and plan (1) Hypertensive urgency: Status: Acute Assessment and plan: Admit to the ICU on cardene gtt. Continue home valsartan and chlorthalidone. I did send refills on this to his pharmacy in case he leaves AMA benjamin. Monitor for pulmonary edema, which I do think he has some now. Give furosemide 20 mg IV x 1. Obtain an echo. (2) Pulmonary infiltrate: Status: Acute Assessment and plan: In setting of cocaine abuse but also hypertensive urgency, could be pulmonary edema, chemical pneumonitis, or infectious. Obtain procalcitonin. Will give furosemide 20 mg IV x1. Obtain an echocardiogram. (3) Cocaine abuse: Status: Chronic Assessment and plan: Avoid BB. Avoid chemical DVT ppx. (4) Chest discomfort: Status: Acute Assessment and plan: No ACS by troponins and EKG. (5) DVT prophylaxis: Status: Acute Assessment and plan: SCDs (6) Discharge planning issues: Status: Acute Assessment and plan: Full code Admit to the ICU Needs a PCP Total Critical Care Time 45 minutes History of Present Illness History of Present Illness Chief Complaint: dyspnea and chest pain Narrative: Mr Shaikh is a 43 year old male with PMHx of hypertension w/ a prior episode of hypertensive emergency, a negative cardiac cath at [facility] this year, obesity with BMI of 36.5 kg/m2, cocaine abuse, who presented to [facility] ED today c/o shortness of breath and chest discomfort x 3-4 days. Chest discomfort is described as pressure to the ED provider, and the shortness of breath as difficulty getting a deep breath in, which is worse when supine. He has run out of one of his anithypertensives and is only taking one of his normally two antihypertensives right now. In the ED, his BP was 219/141. He had an elevated d-dimer. His UDS is positive for cocaine and THC. His troponins x 2 are negative and his NT-proBNP is 822 pg/mL. CTA of the chest ruled out an acute PE and aortic dissection. He was started on nicardipine drip. CTA does also show confluent non-cavitated ground-glass nodular infiltrates in the RUL and RLL. There is also evidence of subcarinal adenopathy, as well as lymphadenopathy in anterior left mediastinal fat and bilateral hilum. The patient tested negative for COVID-19. Hospitalist admission was requested. The patient states that he last used cocaine on Wednesday, 5 days ago. He had not noticed symptoms of shortness of breath, MARTINEZ, PND, orthopnea (and had to start sleeping in a recliner) until Wednesday. He denies f/c, endorses a nonproductive cough. Denies runny nose or sore throat. He states he had run out of chlorthalidone 2 months ago (got a 30 day rx). He received a 90 day rx of valsartan, so he continued to take it. He does not have a PCP and does not currently have medical insurance. His pharmacy is [facility] in [place], and I did promise him to send a prescription with refills to his pharmacy. Review of Systems All systems reviewed & are unremarkable except as noted in HPI and below PFSH All Active Problems (Updated 07/06/23 @ 14:33 by Jean-Pierre Hutchinson MD) Cocaine abuse (Acute) Hypertensive emergency (Acute) Pulmonary infiltrate (Acute) Discharge planning issues (Acute) DVT prophylaxis (Acute) Chest discomfort (Acute) Cocaine abuse (Chronic) Pulmonary infiltrate (Acute) Hypertensive urgency (Acute) Obesity, morbid, BMI 40.0-49.9 (Acute) GERD (gastroesophageal reflux disease) (Chronic) Hypertension (Chronic) Hypokalemia (Acute) Abscess of left forearm (Acute) Dog bite of left forearm with infection (Acute) Cellulitis of left forearm (Acute) No-show for appointment (Acute) Medical History Pneumonia Surgical History S/P tendon repair 3rd digit RUE Family History Mother Hypertension Father Hypertension Social History (Updated 07/06/23 @ 16:01 by Teresita Matthews MD) Smoking/Tobacco Use Status: Never Smoking risk assessment performed?: Yes Alcohol Intake: current Alcohol Intake frequency: a few times a week Alcohol type: beer Counseling given: Yes Counseling provided: reduce to 2 or less/day Drug use: Occasionally Substance use type: marijuana and crack/cocaine Details: States he no longer uses Housing: house Current gender identity: male Do you feel safe at home: Yes Do you feel safe in your relationship?: Yes Meds Allergies and Home Medications Allergies Allergy/AdvReac Type Severity Reaction Status Date / Time Penicillins Allergy Mild Unverified 07/06/23 10:05 Home Medications Medication Instructions Recorded Confirmed Type chlorthalidone 25 mg tablet 1 tab PO DAILY #90 tabs 07/06/23 Rx valsartan 160 mg tablet 160 mg PO DAILY #90 tabs 07/06/23 Rx Exam Narrative Exam Narrative: General: Pleasant middle-aged male who looks older than his stated age, A&Ox3, appears comfortable at a 30 degree angle in bed Neurological: A&Ox3, no focal deficits Psychiatric: Appropriate speech pattern/content Skin: Visible skin intact HEENT: Atraumatic, normocephalic, EOMI, MMM, clear oropharynx, no submandibular or cervical lymphadenopathy, no goiter or JVD Cardiovascular: RRR, no m/r/g Lungs: faint crackles B bases Gastrointestinal: soft, nontender, nondistended Genitourinary: deferred Extremities: no edema BLEs, 2+ pedal pulses, no c/c Results Imaging Additional studies: CXR: Mild increased markings medial aspect right upper lobe. Recommend nonportable PA and lateral views when clinically possible. CTA chest; 1. No evidence of acute pulmonary emboli, as per request..No evidence of pulmonary infarction. 2. However, there are confluent non cavitated ground-glass nodular infiltrates in the right upper lobe corresponding to the subtle finding on today's chest radiograph. Average size of these nodular infiltrates is 2.3 cm. There is also a smaller nodular infiltrate in the right lower lobe medial basal segment. There are no pleural effusions. 3. There is subcarinal adenopathy as well as a few slightly enlarged lymph nodes in the anterior left mediastinal fat and slightly prominent bilateral hilar lymph nodes. EKG: ST, LVH, HR 100, nonspecific ST-T changes Labs 07/06/23 09:46 07/06/23 09:46 Labs: Laboratory Results - last 24 hr 07/06/23 07/06/23 07/06/23 09:46 10:25 13:00 WBC 10.15 RBC 4.60 Hgb 13.2 L Hct 39.2 L MCV 85 MCH 28.7 MCHC 33.7 RDW 12.3 Plt Count 292 MPV 9.7 Immature Gran % 0.4 Neutrophils % 76.8 Lymphocytes % 14.5 Monocytes % 6.3 Eosinophils % 1.3 Basophils % 0.7 Nucleated RBC % 0.0 Absolute Neutrophils 7.80 H Absolute Lymphocytes 1.47 Absolute Monocytes 0.64 Absolute Eosinophils 0.13 Absolute Basophils 0.07 D-Dimer 1599 H Sodium 136 Potassium 3.8 Chloride 102 Carbon Dioxide 25.6 Anion Gap 8.4 BUN 13 Creatinine 0.9 Est GFR (CKD-EPI 2020) 110.04 Glucose 186 H Calcium 8.9 Magnesium 1.8 Total Bilirubin 0.9 AST 37 ALT 68 H Alkaline Phosphatase 87 Troponin I < 50 < 50 NT-Pro-B Natriuret Pep 822 H Total Protein 7.1 Albumin 3.5 Urine Opiates Screen Negative Urine Methadone Screen Negative Ur Barbiturates Screen Negative Ur Tricyclics Screen Negative Ur Amphetamines Screen Negative U Benzodiazepines Scrn Negative Urine Cocaine Screen Positive A Ur THC Screen Positive A COVID-19 Source Nasal/Nares SARS-CoV-2 (PCR) Negative Last Vital Signs Temp 36.6 C 07/06/23 09:31 Pulse 108 H 07/06/23 13:53 Resp 13 07/06/23 13:00 BP 141/98 H 07/06/23 13:53 Pulse Ox 94 07/06/23 13:53 PAWSS Have you Been Recently Intoxicated or Drunk Within the Last 30 days?: Yes Have you Ever Experienced Previous Episodes of Alcohol Withdrawal?: No Have you ever Experienced Withdrawal Seizures?: No Have you ever Experienced Delirium Tremens(DT)s?: No Have you ever undergone Alcohol Rehabilitation Treatment (i.e, inpt ot outpatient treatment programs)?: No Have you ever Experienced Blackouts?: No Have you ever Combined Alcohol with other Downers within the last 90 days?: No Have you ever Combined Alcohol with any other Substance of Abuse during the last 90 days?: No Positive Blood Alcohol level on Presentation? [PCS.BAL]: No Evidence of Increased Autonomic Activity (i.e. HR>120, tremor, sweating, agitation, nausea)?: No Result: 1 Time Spent Time spent with Patient: 40-54 minutes Time was spent: preparing to see the patient(eg.review tests), obtaining and/or reviewing separately otained hiistory, ordering medications,tests, procedures, referring, communicating with other health foster care worker, indepentently interpreting results, counseling the patient and care coordination
--- NOTE | 2023-07-06 15:06 | W.PC.ACHO ---
Registration Status: REG ER Primary Language: Preferred Language: Vietnamese ED Information & Data Chief Complaint SOB 07/06/23 09:59 Triage Note Shortness of breath and 07/06/23 09:31 chest discomfort x 3 days. Chest pressure when he can't breathfeels, worse lying supine. States he had fluid around his heart 3-4 months ago. like I can't breath too good. HX of HTN. Affecting his sleep. Medical / Surgical History (Last Reviewed 07/06/23 @ 09:57 by Jean-Pierre Hutchinson MD) Pneumonia (Last Reviewed 07/06/23 @ 09:57 by Jean-Pierre Hutchinson MD) S/P tendon repair Most Recent Vital Signs Temperature 36.6 C 07/06/23 09:31 Temperature Source Oral 07/06/23 09:31 Pulse 105 H 07/06/23 14:21 Pulse 104 H 07/06/23 14:21 Respiratory Rate 13 07/06/23 13:00 Respiratory Effort Normal 07/06/23 10:03 Respiratory Depth Normal 07/06/23 10:03 Respiratory Pattern Normal 07/06/23 10:03 Blood Pressure 131/74 07/06/23 14:21 Blood Pressure Mean 94 07/06/23 14:21 Blood Pressure Position Sitting 07/06/23 09:31 Pulse Oximetry 98 07/06/23 14:21 Oxygen Delivery Method Room Air 07/06/23 09:31 Oxygen Flow Rate 0 07/06/23 09:31 Pain Level 2 07/06/23 09:31 Allergies Penicillins Allergy (Mild, Unverified 07/06/23 10:05) The patient does not know what his reaction to penicillin was and has previously tolerated an intravenous penicillin-class antibiotic at [facility] Precautions Isolation PUI 07/06/23 09:39 Active Medications Generic Name Dose Route Start Last Admin Trade Name Freq PRN Reason Stop Dose Admin Nicardipine HCl 25 mg/ Sodium 250 mls @ 50 mls/hr 07/06/23 12:30 07/06/23 14:10 Chloride IV 0 mg/hr INFUSION BO 0 mls/hr Titration Protocol 5 MG/HR Iohexol 100 ml 07/06/23 11:45 07/06/23 11:38 Omnipaque 350 Mg/Ml 100 Ml Btl IJ 08/05/23 23:59 100 ml DIRECTED BO Administration Sodium Chloride 0 ml 07/06/23 09:53 07/06/23 11:39 Normal Saline Flush 10 Ml Syr IVP 10 ml PRN PRN Administration Sodium Chloride 50 ml 07/06/23 11:45 07/06/23 11:37 Normal Saline - Diluent 50 Ml Vial IJ 50 ml .FOR DI USE BO Administration IV IV Catheter Type [Left Peripheral IV Antecubital] IV Catheter Gauge [Left 18 Antecubital] Diagnostics 07/06/23 07/06/23 07/06/23 Range/Units 13:00 10:25 09:46 WBC 10.15 (4.4-10.8) 10^3/uL RBC 4.60 (4.36-5.78) 10^6/uL Hgb 13.2 L (13.5-17.5) g/dL Hct 39.2 L (40.0-50.0) % MCV 85 (80-95) fL MCH 28.7 (27.0-33.0) pg MCHC 33.7 (32.0-36.0) % RDW 12.3 (11.8-14.1) % Plt Count 292 (130-400) 10^3/uL MPV 9.7 (8.0-11.0) fL Immature Gran % 0.4 Neutrophils % 76.8 Lymphocytes % 14.5 Monocytes % 6.3 Eosinophils % 1.3 Basophils % 0.7 Nucleated RBC % 0.0 (0.0-0.3) % Absolute Neutrophils 7.80 H (1.2-6.7) 10^3/uL Absolute Lymphocytes 1.47 (1.2-3.4) 10^3/uL Absolute Monocytes 0.64 (0.1-0.8) 10^3/uL Absolute Eosinophils 0.13 (0.0-0.7) 10^3/uL Absolute Basophils 0.07 (0.0-0.2) 10^3/uL D-Dimer 1599 H (<500) ng/mlFEU Sodium 136 (136-145) mmol/L Potassium 3.8 (3.5-5.1) mmol/L Chloride 102 (98-107) mmol/L Carbon Dioxide 25.6 (21.0-32.0) mmol/L Anion Gap 8.4 (3-11) mmol/L BUN 13 (7-18) mg/dL Creatinine 0.9 (0.70-1.30) mg/dL Est GFR (CKD-EPI 2020) 110.04 (mL/min/1.73m2) Glucose 186 H (74-106) mg/dL Calcium 8.9 (8.5-10.1) mg/dL Magnesium 1.8 (1.8-2.4) mg/dL Total Bilirubin 0.9 (0.2-1.0) mg/dL AST 37 (15-37) U/L ALT 68 H (16-63) U/L Alkaline Phosphatase 87 (46-116) U/L Troponin I < 50 < 50 (<or=60) ng/L NT-Pro-B Natriuret Pep 822 H (<300) pg/mL Total Protein 7.1 (6.4-8.2) g/dL Albumin 3.5 (3.4-5.0) g/dL Urine Opiates Screen Negative (Negative) Urine Methadone Screen Negative (Negative) Ur Barbiturates Screen Negative (Negative) Ur Tricyclics Screen Negative (Negative) Ur Amphetamines Screen Negative (Negative) U Benzodiazepines Scrn Negative (Negative) Urine Cocaine Screen Positive A (Negative) Ur THC Screen Positive A (Negative) COVID-19 Source Nasal/Nares SARS-CoV-2 (PCR) Negative (Negative) Intake and Output - 24 Hour Total 07/06/23 09:25 thru 07/06/23 14:10 Intake Total 81.667 Balance 81.667 Weight 136.078 kg Intake: IV 81.667 Falls Risk Assessment History of Falls No History 07/06/23 10:03 Contributing Factors No Factors 07/06/23 10:03 Ambulatory Aids Independent 07/06/23 10:03 Tubes/Lines None 07/06/23 10:03 Gait Evaluation No gait disturbance 07/06/23 10:03 Cognition No cognitive impairment 07/06/23 10:03 Fall Total Score 0 07/06/23 10:03 Level of Risk Standard/Low Risk 07/06/23 10:03 Problems (Last Reviewed 07/06/23 @ 09:57 by Jean-Pierre Hutchinson MD) Cocaine abuse (Acute) Hypertensive emergency (Acute) Pulmonary infiltrate (Acute) Discharge planning issues (Acute) DVT prophylaxis (Acute) Chest discomfort (Acute) Cocaine abuse (Chronic) Pulmonary infiltrate (Acute) Hypertensive urgency (Acute) v v v v v v v v v Sending and/or Receiving Nurses: Please use comment section below to note any information pertinent to the patient hand-off not included above. Information Report obtained from Ismael ER/RN. Current BP 173/100. HR 101 bpm. Pt denies headache, denies blurry vision. Nicardipine gtt is off although Ismael plans on restarting Nicardipine at 5mg/hr. 02 sat is 96% on room air. Ddimer elevated. Chest CT is negative for PE. EKG shows ST elevations in leads , V2, V3, and lateral leads. Troponin is negative. Covid is negative. UDS is positive for cocaine and THC. Pt reports yes to drinking alcohol, denies ever having alcohol withdrawals. Pt is A & O X3 pt is cooperative with plans for admission to the ICU although pt does want to go home. Med rec is complete. Report received from:HAMLET Guevara/HUY
[2023-07-06 16:34] LABS: Lab Add On Test DONE
[2023-07-06] MEDS: Furosemide 20 MG/2 ML VIAL IVP (16:45)
[2023-07-06 17:06] LABS: Procalcitonin < 0.1 ng/mL
[2023-07-06 19:22] LABS: COVID-19 PCR Negative (Negative); Influenza A PCR Negative (Negative); Influenza B PCR Negative (Negative); RSV PCR Negative (Negative)
[2023-07-06 19:23] LABS: Source Nasopharynx
[2023-07-06] MEDS: Magnesium Gluconate 500 MG TAB PO (21:37)
[2023-07-06] MEDS: Acetaminophen 325 MG TAB PO (21:37)
[2023-07-06] MEDS: Melatonin 3 MG TAB 9 MG PO (21:37)
[2023-07-07] VITALS (98 sets, daily range): BP systolic 136–181; BP diastolic 84–135; PULSE 70–98; RESP 7–27; TEMP 36.3–36.5; O2SAT 96
[2023-07-07 07:05] LABS: Abs Immature Grans 0.02 10^3/uL (0.0-0.06); Absolute Basophil Count 0.06 10^3/uL (0.0-0.2); Absolute Eosinophil Count 0.21 10^3/uL (0.0-0.7); Absolute Lymphocyte Count 1.75 10^3/uL (1.2-3.4); Absolute Monocyte Count 0.56 10^3/uL (0.1-0.8); Absolute Neutrophil Count 4.36 10^3/uL (1.2-6.7); Basophils % 0.9; HCT 42.9 % (40.0-50.0); HGB 14.8 g/dL (13.5-17.5); Immature Grans % 0.3; Lymphocytes % 25.1; MCH 29.2 pg (27.0-33.0); MCHC 34.5 % (32.0-36.0); MCV 85 fL (80-95); MPV 10.1 fL (8.0-11.0); Neutrophils % 62.7; Platelet Count 296 10^3/uL (130-400); RBC 5.07 10^6/uL (4.36-5.78); RDW 12.5 % (11.8-14.1); RDW-SD 37.8 fL; WBC 6.96 10^3/uL (4.4-10.8)
[2023-07-07 07:13] LABS: Anion Gap 10.7 mmol/L (3-11); BUN 10 mg/dL (7-18); CO2 27.3 mmol/L (21.0-32.0); CREATININE 0.9 mg/dL (0.70-1.30); Calcium 9.2 mg/dL (8.5-10.1); Chloride 101 mmol/L (98-107); Estimated GFR 110.04 (mL/min/1.73m2); Glucose 159 mg/dL (74-106); Magnesium 2.1 mg/dL (1.8-2.4); Potassium 3.6 mmol/L (3.5-5.1); Sodium 139 mmol/L (136-145)
--- NOTE | 2023-07-07 07:13 | PDOC.CMIN ---
Date of service: 07/07/23 Time of Service: 07:13 Care Management Initial Assmt Initial Assessment REASON FOR HOSPITALIZATION:: Hypertensive urgency, pulmonary infilitrate PREVIOUS FUNCTIONAL STATUS/SOCIAL/FAMILY SUPPORTS:: Resides in [facility] with Gladys. Independent at baseline in community; struggles with ABBEY. CURRENT FUNCTIONAL STATUS:: Remains in ICU, MD at bedside performing POCUS when CM entered. ADVANCE DIRECTIVES:: None on file. Has patient been provided with info about the portal/API?: No Did the patient sign up for the portal?: No CODE STATUS:: Full Code INSURANCE COVERAGE / FINANCIAL ISSUES:: Self Pay; ROBYN referral inititated. CURRENT HOME/COMMUNITY SERVICES/EQUIPMENT:: None. PRIMARY CARE PHYSICIAN:: None, T-Doc process for hospital follow up to be offered. POTENTIAL DISCHARGE NEEDS:: Self pay status referral, PCP referral, prescription refill at [facility], per MD. PATIENT/FAMILY EDUCATION NEEDS:: Review discharge instructions, discuss Ask Me Three. ANTICIPATED BARRIERS TO DISCHARGE:: None identified. TRANSPORTATION:: Via private vehicle with Gladys. PLAN:: has agreed to refill Karel's prescriptions at the [facility]. Anticipate Karel will return home when ready; referrals initiated to [facility] for insurance support, T-Doc for PCP follow up (YOHAN Huggins, 07/16/23@1600, Coordinator [employer] to be discussed. CM continues to follow. PFSH All Active Problems (Updated 07/06/23 @ 14:33 by Jean-Pierre Hutchinson MD) Cocaine abuse (Acute) Hypertensive emergency (Acute) Pulmonary infiltrate (Acute) Discharge planning issues (Acute) DVT prophylaxis (Acute) Chest discomfort (Acute) Cocaine abuse (Chronic) Pulmonary infiltrate (Acute) Hypertensive urgency (Acute) Obesity, morbid, BMI 40.0-49.9 (Acute) GERD (gastroesophageal reflux disease) (Chronic) Hypertension (Chronic) Hypokalemia (Acute) Abscess of left forearm (Acute) Dog bite of left forearm with infection (Acute) Cellulitis of left forearm (Acute) No-show for appointment (Acute) Medical History Pneumonia Surgical History S/P tendon repair 3rd digit RUE Family History Mother Hypertension Father Hypertension Social History (Updated 07/06/23 @ 16:01 by Teresita Matthews MD) Smoking/Tobacco Use Status: Never Smoking risk assessment performed?: Yes Alcohol Intake: current Alcohol Intake frequency: a few times a week Alcohol type: beer Counseling given: Yes Counseling provided: reduce to 2 or less/day Drug use: Occasionally Substance use type: marijuana and crack/cocaine Details: States he no longer uses Housing: house Current gender identity: male Do you feel safe at home: Yes Do you feel safe in your relationship?: Yes
[2023-07-07] MEDS: Chlorthalidone 25 MG TAB PO (08:23)
[2023-07-07] MEDS: Valsartan 80 MG TAB 240 MG PO (08:23)
--- NOTE | 2023-07-07 10:35 | W.PM.PROGNOT ---
Date of Service Date of service: 07/07/23 Time of Service: 10:35 Assessment and Plan Assessment and plan (1) Hypertensive urgency: Status: Acute Assessment and plan: Increase valsartan to 240 mg daily, resume chlorthalidone, add amlodipine 5 mg daily. Patient would like to be discharged later today. We will reevaluate in this afternoon. Professional time spent interviewing and examining patient, discussion of goals of care with hospital team (care management, nursing and consulting professionals) was 30 minutes. (2) Pulmonary infiltrate: Status: Acute Assessment and plan: Some groundglass pulmonary infiltrates. He is afebrile has no cough or sputum production. Procalcitonin level is negative. I suspect he is probably secondary to his abuse of cocaine. This can be followed up as an outpatient. (3) Cocaine abuse: Status: Chronic Assessment and plan: Avoid BB. (4) Chest discomfort: Status: Acute Assessment and plan: No ACS by troponins and EKG. No further chest discomfort since admission. Patient reportedly had a negative cardiac catheterization this year. (5) DVT prophylaxis: Status: Acute Assessment and plan: SCDs (6) Discharge planning issues: Status: Acute Assessment and plan: Full code Patient desires to return home today. Patient is to be assigned a primary care provider. Subjective Subjective Interval history since last seen: Patient denies any CP or dyspnea at present. He was admitted to the intensive care unit yesterday secondary. Patient has a history of severe hypotension was evaluated at [facility] earlier this year and had a cardiac catheterization. Coronary arteries. He was admitted to his acute congestive heart failure. He has been restarted on valsartan and chlorthalidone and was weaned off nicardipine drip last week. However this morning he had systolic blood pressures in the 180s and diastolic pressures in the 110s. I am adding amlodipine in order to avoiding resumption of nicardipine drip as. Patient states that he has no insurance at present time and is not following up with primary care provider in several months. Exam Narrative Exam Narrative: Alert and oriented x3 no acute distress. Neck no JVD Lungs clear to auscultation Respiratory rate and rhythm patient. Abdomen is soft obese Extremities without peripheral cyanosis or edema. Objective Last Vital Signs Temp 36.4 C L 07/07/23 04:36 Pulse 87 07/07/23 08:55 Resp 19 07/07/23 08:55 BP 164/110 H 07/07/23 08:55 Pulse Ox 96 07/07/23 04:36 Laboratory Results - last 24 hr 07/06/23 07/06/23 07/06/23 09:46 10:25 13:00 WBC RBC Hgb Hct MCV MCH MCHC RDW Plt Count MPV Immature Gran % Neutrophils % Lymphocytes % Monocytes % Eosinophils % Basophils % Nucleated RBC % Absolute Neutrophils Absolute Lymphocytes Absolute Monocytes Absolute Eosinophils Absolute Basophils D-Dimer 1599 H Sodium Potassium Chloride Carbon Dioxide Anion Gap BUN Creatinine Est GFR (CKD-EPI 2020) Glucose Calcium Magnesium Troponin I < 50 Procalcitonin < 0.1 Urine Opiates Screen Negative Urine Methadone Screen Negative Ur Barbiturates Screen Negative Ur Tricyclics Screen Negative Ur Amphetamines Screen Negative U Benzodiazepines Scrn Negative Urine Cocaine Screen Positive A Ur THC Screen Positive A COVID-19 Source Nasal/Nares SARS-CoV-2 (PCR) Negative Influenza Type A (PCR) Influenza Type B (PCR) RSV (PCR) Add-On Test Request 07/06/23 07/06/23 07/07/23 16:05 18:24 06:15 WBC 6.96 RBC 5.07 Hgb 14.8 Hct 42.9 MCV 85 MCH 29.2 MCHC 34.5 RDW 12.5 Plt Count 296 MPV 10.1 Immature Gran % 0.3 Neutrophils % 62.7 Lymphocytes % 25.1 Monocytes % 8.0 Eosinophils % 3.0 Basophils % 0.9 Nucleated RBC % 0.0 Absolute Neutrophils 4.36 Absolute Lymphocytes 1.75 Absolute Monocytes 0.56 Absolute Eosinophils 0.21 Absolute Basophils 0.06 D-Dimer Sodium 139 Potassium 3.6 Chloride 101 Carbon Dioxide 27.3 Anion Gap 10.7 BUN 10 Creatinine 0.9 Est GFR (CKD-EPI 2020) 110.04 Glucose 159 H Calcium 9.2 Magnesium 2.1 Troponin I Procalcitonin Urine Opiates Screen Urine Methadone Screen Ur Barbiturates Screen Ur Tricyclics Screen Ur Amphetamines Screen U Benzodiazepines Scrn Urine Cocaine Screen Ur THC Screen COVID-19 Source Nasopharynx SARS-CoV-2 (PCR) Negative Influenza Type A (PCR) Negative Influenza Type B (PCR) Negative RSV (PCR) Negative Add-On Test Request DONE PAWSS Have you Been Recently Intoxicated or Drunk Within the Last 30 days?: Yes Have you Ever Experienced Previous Episodes of Alcohol Withdrawal?: No Have you ever Experienced Withdrawal Seizures?: No Have you ever Experienced Delirium Tremens(DT)s?: No Have you ever undergone Alcohol Rehabilitation Treatment (i.e, inpt ot outpatient treatment programs)?: Yes Have you ever Experienced Blackouts?: Yes Have you ever Combined Alcohol with other Downers within the last 90 days?: No Have you ever Combined Alcohol with any other Substance of Abuse during the last 90 days?: Yes Positive Blood Alcohol level on Presentation? [PCS.BAL]: No Evidence of Increased Autonomic Activity (i.e. HR>120, tremor, sweating, agitation, nausea)?: Yes Result: 6 Time Spent with Patient Time Spent with Patient: 25-34 minutes Time was spent: preparing to see the patient(eg.review tests), ordering medications,tests, procedures, referring, communicating with other health day care home mother, indepentently interpreting results, counseling the patient and care coordination
[2023-07-07] MEDS: amLODIPine 5 MG TAB PO (10:56)
--- NOTE | 2023-07-07 15:12 | CHAPLAIN ---
I had a brief visit with Karel. He was visiting with him. Karel was polite and pleasant, but was not interested in further conversation with me. I explained my role and offered support.
--- NOTE | 2023-07-07 17:24 | W.PM.DS.N ---
Date of service: 07/07/23 Time of Service: 17:24 DS: Diagnosis Discharge Diagnosis (1) Hypertensive urgency: Status: Acute (2) Pulmonary infiltrate: Status: Acute (3) Cocaine abuse: Status: Chronic (4) Chest discomfort: Status: Resolved Discharge Plan Disposition Patient Disposition: Home Condition: Improving Discharge Details Reason For Visit: hypertensive urgency, pulmonary infiltrate Admit Date/Time: 07/06/23 14:09 Admit Provider: Teresita Matthews Attending Provider: Teresita Matthews Primary Care Provider: None,None Hospital Course Hospital Course: Patient is a 43-year-old male with history of hypertension previous episode of hypertensive urgency which was evaluated at [facility] earlier this year and underwent cardiac catheterization that showed no ischemic coronary artery disease. He was found to be in congestive heart failure was treated with diuretics as well as ARB antihypertensives. Patient has a history of cocaine abuse but has not had recent use of cocaine. He complains of 3 to 4 days of shortness of breath and chest discomfort described as chest pressure along with increasing dyspnea with mild to moderate exertion. On presentation emergency department his blood pressure was elevated 219/141. His urine drug screen was positive for cocaine and THC. Troponins were negative x2. proBNP was elevated at 822 pg/mL. D-dimer is elevated and he underwent a CTA of his chest to rule out a PE and aortic dissection. No dissection or PE was found. He was admitted to the intensive care unit placed on nicardipine drip. CT of the chest did show some nodularity groundglass nodular infiltrates in the right upper lobe right lower lobe and subcarinal adenopathy. Patient did well and responded well to resumption of his valsartan and chlorthalidone. Apparently he did run out of his chlorthalidone couple months ago. He currently does not have a PCP provider and has no medical insurance. Following morning after admission he was free of any chest pain or dyspnea. Blood pressures remain labile with systolic pressures running from 1 54-1 70 and diastolic blood pressures running from 100 to the 120s. Nevertheless the patient was requesting to be discharged home as he was feeling markedly better. His valsartan dose was increased to 240 mg daily. Prescriptions for valsartan 80 mg tablets 3 tablets p.o. daily along with chlorthalidone 25 mg daily and amlodipine 5 mg daily was ordered. He is to follow-up with Dr. Huggins on July 16, 2023 at 4 PM. Orders were given for him to get a follow-up blood test for plasma bleeding and activity level as well as serum aldosterone level secondary hypertension from hyperaldosteronism. Home Meds and New Rx's Prescriptions: New chlorthalidone 25 mg Tablet 25 mg PO DAILY Qty: 90 0RF amlodipine 5 mg Tablet 5 mg PO DAILY Qty: 90 0RF valsartan [Diovan] 80 mg Tablet 240 mg PO DAILY Qty: 90 0RF Discontinued chlorthalidone 25 mg tablet 1 tab PO DAILY Patient Comments: TAKE 1 TABLET BY MOUTH EVERY DAY valsartan 160 mg tablet 160 mg PO DAILY Patient Comments: TAKE 1 TABLET BY MOUTH ONCE DAILY Discharge Instructions Instructions: Chronic Hypertension (DC) Stand Alone Forms: Nursing Discharge Form Referrals: Willam Huggins DO [OSTEOPATHIC DOCTOR] - 07/16/23 4:00 pm Activity:: Activity as Tolerated Equipment/Supplies:: No Equipment Needed Diet:: Low Sodium Discharge Orders Discharge Orders: Discharge Order (Routine); Ordered 07/07/23 Ordered By: Tad Herrera Other Ambulatory Orders: Aldosterone (Routine) Timeframe: 1 Week Facility: [facility] - Location: Laboratory Nonpatient Ordered By: Tad Herrera Renin Activity, Plasma (Routine) Timeframe: 1 Week Facility: [facility] - Location: Laboratory Nonpatient Ordered By: Tad Herrera Discharge Data Discharge Date/Time-TO BE ENTERED AT DEPARTURE: 07/07/23 18:15 Discharge Comment: home driving DS: Summary Time Spent with Patient providing and/or coordinating discharge services: Less than 30 minutes Specific discharge activities: Interview/exam of patient; review of discharge instructions, completion of prescriptions/discharge instructions; discussion w/ nursing and CM; documentation of hospital visit Status at Discharge Functional status at discharge: independent ambulation Overall status at discharge: patient is back to baseline Mental Status: mental status grossly normal Speech and Movement: speech and movement normal Mood: congruent mood Affect: normal affect Exam Narrative Exam Narrative: Alert and oriented x3 no acute distress. Neck no JVD Lungs clear to auscultation Respiratory rate and rhythm patient. Abdomen is soft obese Extremities without peripheral cyanosis or edema. Psych Mental Status: mental status grossly normal Speech and Movement: speech and movement normal Mood: congruent mood Affect: normal affect DS: Data Vitals/I&O Vitals and I&O: Vital Signs Temperature 36.3 C L 07/07/23 13:20 Temperature Source Temporal Artery Scan 07/07/23 07:25 Pulse 89 07/07/23 17:18 Pulse 91 H 07/07/23 17:18 Respiratory Rate 16 07/07/23 17:18 Respiratory Effort Normal, Non-Labored 07/07/23 13:20 Respiratory Depth Normal 07/07/23 13:20 Respiratory Pattern Normal 07/07/23 13:20 Blood Pressure 170/132 H 07/07/23 17:18 Blood Pressure Mean 143 07/07/23 17:18 Blood Pressure Position Right Lateral 07/07/23 04:36 Pulse Oximetry 96 07/07/23 04:36 Oxygen Delivery Method Room Air 07/07/23 13:20 Oxygen Flow Rate 0 07/07/23 13:20 Pain Level 0 07/07/23 04:36 Intake & Output 07/06/23 07/07/23 07/07/23 23:59 11:59 23:59 Intake Total 1168.751 / 1168.751 454.167 / 874.167 420 / 874.167 Output Total 4950 / 4950 1100 / 1350 250 / 1350 Balance -3781.249 / -3781.249 -645.833 / -475.833 170 / -475.833 Weight 137.6 kg 137.1 kg Intake: IV 188.751 / 188.751 34.167 / 34.167 Oral 980 / 980 420 / 840 420 / 840 Output: Urine 4950 / 4950 1100 / 1350 250 / 1350 Other: Urine Color Yellow Yellow Yellow Urine Appearance Clear Clear Urine Odor Normal Strong Normal Comment No void at this time. Voiding independently, using bedside urinal. Voiding independently, using bedside urinal. Voiding Methods Urinal Urinal Data Completed and Pending Labs on day of discharge: Labs from last 24 hours 07/07/23 07/06/23 06:15 18:24 WBC 6.96 RBC 5.07 Hgb 14.8 Hct 42.9 MCV 85 MCH 29.2 MCHC 34.5 RDW 12.5 Plt Count 296 MPV 10.1 Immature Gran % 0.3 Neutrophils % 62.7 Lymphocytes % 25.1 Monocytes % 8.0 Eosinophils % 3.0 Basophils % 0.9 Nucleated RBC % 0.0 Absolute Neutrophils 4.36 Absolute Lymphocytes 1.75 Absolute Monocytes 0.56 Absolute Eosinophils 0.21 Absolute Basophils 0.06 Sodium 139 Potassium 3.6 Chloride 101 Carbon Dioxide 27.3 Anion Gap 10.7 BUN 10 Creatinine 0.9 Est GFR (CKD-EPI 2020) 110.04 Glucose 159 H Calcium 9.2 Magnesium 2.1 COVID-19 Source Nasopharynx SARS-CoV-2 (PCR) Negative Influenza Type A (PCR) Negative Influenza Type B (PCR) Negative RSV (PCR) Negative PFSH All Active Problems Cocaine abuse (Acute) Hypertensive emergency (Acute) Pulmonary infiltrate (Acute) Discharge planning issues (Acute) DVT prophylaxis (Acute) Cocaine abuse (Chronic) Pulmonary infiltrate (Acute) Hypertensive urgency (Acute) Obesity, morbid, BMI 40.0-49.9 (Acute) GERD (gastroesophageal reflux disease) (Chronic) Hypertension (Chronic) Hypokalemia (Acute) Abscess of left forearm (Acute) Dog bite of left forearm with infection (Acute) Cellulitis of left forearm (Acute) No-show for appointment (Acute) Medical History Pneumonia Surgical History S/P tendon repair 3rd digit RUE Family History Mother Hypertension Father Hypertension Social History Smoking/Tobacco Use Status: Never Smoking risk assessment performed?: Yes Alcohol Intake: current Alcohol Intake frequency: a few times a week Alcohol type: beer Counseling given: Yes Counseling provided: reduce to 2 or less/day Drug use: Occasionally Substance use type: marijuana and crack/cocaine Details: States he no longer uses Housing: house Current gender identity: male Do you feel safe at home: Yes Do you feel safe in your relationship?: Yes Time Spent with Patient Time Spent with Patient: <45 minutes Time was spent: preparing to see the patient(eg.review tests), obtaining and/or reviewing separately otained hiistory, ordering medications,tests, procedures, referring, communicating with other health healthcare advisory services manager, indepentently interpreting results, counseling the patient and care coordination
== END 2023-07-07 18:15 | disposition home or self-care (01) | DRG 305 ==
LOC: ER 14:33 → ICU 15:13
PROVIDERS: Admitting Provider Internal Medicine; Emergency Provider Student in an Organized Health Care Education/Training Program; Visit Provider Internal Medicine
DX: I16.0 Hypertensive urgency (principal); R91.8 Other nonspecific abnormal finding of lung field; F14.10 Cocaine abuse, uncomplicated; R07.89 Other chest pain; E66.9 Obesity, unspecified; Z68.36 Body mass index [BMI] 36.0-36.9, adult; R59.0 Localized enlarged lymph nodes; T50.2X6A Underdosing of carbonic-anhydrase inhibitors, benzothiadiazides and other diuretics, initial encounter; Z91.138 Patient's unintentional underdosing of medication regimen for other reason; I10 Essential (primary) hypertension; K21.9 Gastro-esophageal reflux disease without esophagitis; E87.6 Hypokalemia; R79.1 Abnormal coagulation profile
CPT/HCPCS: 00123; 36415; 71275; 80048; 80053; 80307; 84145; 87635; 87637; 93005; 96365; 96375; 96376; 99291; 71045; 83735; 83880; 84484; 85025; 85379; 93010; 93306; 94667; 94668; 99238; J1941; J2060; J3490

== ENCOUNTER → 2024-01-17 01:18 | Outpatient (CLI) | payer MEDICAID, SELFPAY ==
--- NOTE | 2024-01-17 12:54 | ETT_ITS ---
APPROVED REPORT Exam: Exercise Treadmill Patient Location: Out-Patient Room/Bed: Stress Nurse: Loreto King RN Ordering Provider:KUSHAKOSUA SANCHEZ, Contact Number: [phone] BMI: 36.75 Baseline Rhythm: Sinus Rhythm Comment: Resting ST-T changes at baseline Indications: H/O cath 2022, SOB, HTN, Medical History Medical History: HTN, SOB, HTN urgency, cocaine abuse, morbid obesity, hypokalemia, GERD, pulmondary infiltrate Cardiac Medications: Amlodipine, clorthalidone, valsartan Allergies: Penicillin Cardiac Risk Factors: Family hx, HTN, former smoker, obesity Previous Cardiac Procedures: Cardiac cath (2022) Pretest Chest Pain Characteristics: None Exercise History: Indeterminate Physical Disabilities: None Lung Sounds: Clear to auscultation Heart Sounds: Regular Stress Test Details Test: Exercise stress testing was performed using a Jelani protocol. Rest Stress HR Resting HR Supine: 90 bpm Max Heart Rate (APMHR): 179 bpm Resting HR Standin bpm Target HR (85% APMHR): 152 bpm Max HR Achieved: 156 bpm % of APMHR: 87 Recovery HR: 98 bpm HR response to stress: Normal HR response to stress BP Resting BP Supine: 112/92 mmHg Resting BP Standin/112 mmHg Max BP: 210/110 mmHg Recovery BP: 158/102 mmHg BP response to stress: Normal blood pressure response to stress. ECG Resting ECG: Sinus Rhythm, nonspecific ST-T abnormalities Ectopy: None Stress ECG: Sinus tachycardia, nonspecific ST-T abnormalities ST Change: Nondiagnostic ST abnormalities Arrhythmia: None Recovery ECG: Sinus Rhythm, nonspecific ST-T abnormalities Recovery ST Change: Nondiagnostic resting ST abnormalities Recovery Arrhythmia: None Clinical Reason for Termination: Target HR Achieved, Fatigue Stress Symptoms: General Fatigue Exercise duration: 07 min59 sec Highest Stage Reached: Stage 3: 3.4 mph at 14% grade. Exercise capacity: 10.13 METs Angina Score: None Silva Treadmill Score: 6.8 Rate Pressure Product: [id number] Stress ECG Conclusion 1. The resting electrocardiogram showed left ventricular hypertrophy with repolarization abnormalitie s 2. Patient exercised on the Jelani protocol and completed a workload of 10.13 METS, stopping due to fa tigue 3. Normal heart rate and blood pressure response to exercise. The patient achieved 87% of predicted heart rate for age 4. There was no change in the electrocardiogram with exercise, no findings of myocardial ischemia 5. There were no dysrhythmias Sliva Treadmill Score is 6.8 which is Low risk. Stress Test Summary STAGE Time (mins) Speed (mph) Grade (%) HR BP SpO2 SYMPTOMS METS Supine 90 112/92 96 Standing 106 152/112 1 3 1.7 10 124 182//110 98 4.5 2 6 2.5 12 138 190/110 7 3 9 3.4 14 156 10 1 min recovery 106 210/110 98 3 min recovery 106 182/92 99 6 min recovery 98 158/102 98 Patient's BP noted to be high. Dr. Jacques notified and ok to proceed with test. Patient reported he had anxiety multiple times and was and irritable person and quick to be irritated. Patient appeare d anxious. Patient reported he was an alcoholic and an addict several times prior to test. Patien t appeared coherent and answered questions appropriately. Patient completed test and reported dizzin ess once treadmill stopped which resolved quickly. Patient left ambulatory in no apparent distress.
== END ==
PROVIDERS: PCP Student in an Organized Health Care Education/Training Program; Visit Provider Student in an Organized Health Care Education/Training Program
DX: R06.02 Shortness of breath (principal); I10 Essential (primary) hypertension
CPT/HCPCS: 93017

== ENCOUNTER 2024-01-17 15:46 | Outpatient (CLI) | payer MEDICAID, SELFPAY ==
[2024-01-17 16:04] LABS: HGB 15.7 g/dL (13.5-17.5)
[2024-01-17 16:17] LABS: Hemoglobin A1C 7.2 % (<5.7)
[2024-01-17 16:45] LABS: ALT 139 U/L (16-63); AST 71 U/L (15-37); Alkaline Phosphatase 110 U/L (46-116); BUN 12 mg/dL (7-18); Bilirubin, Total 0.6 mg/dL (0.2-1.0); Chloride 101 mmol/L (98-107); Estimated GFR 96.97 (mL/min/1.73m2); Glucose 158 mg/dL (74-106); Magnesium 1.5 mg/dL (1.8-2.4); Potassium 3.4 mmol/L (3.5-5.1); Sodium 140 mmol/L (136-145); Total Protein 8.1 g/dL (6.4-8.2)
[2024-01-17 16:56] LABS: Calcium 9.3 mg/dL (8.5-10.1)
== END 2024-01-17 15:47 | disposition home or self-care (01) ==
LOC: LBO 15:48
PROVIDERS: PCP Student in an Organized Health Care Education/Training Program; Visit Provider Student in an Organized Health Care Education/Training Program
DX: R73.09 Other abnormal glucose (principal); Z91.89 Other specified personal risk factors, not elsewhere classified; I10 Essential (primary) hypertension; Z86.2 Personal history of diseases of the blood and blood-forming organs and certain disorders involving the immune mechanism; E87.6 Hypokalemia
CPT/HCPCS: 36415; 80053; 83036; 83735; 85018

== ENCOUNTER 2024-04-22 16:23 | Emergency (ER) | payer MEDICAID, SELFPAY ==
[2024-04-22] VITALS (74 sets, daily range): BP systolic 75–148; BP diastolic 36–114; PULSE 62–86; RESP 10–22; TEMP 36–36.2; O2SAT 79–99
--- NOTE | 2024-04-22 16:15 | RT.EKG_ITS ---
APPROVED REPORT Exam: Resting ECG Reason for Exam: SOB Patient Location: E HR:83 bpm ECG Measurements Heart Rate 83 AXIS IN 195 P -11 QRSd 109 QRS 33 QT 423 T 151 QTc 479 Conclusion Sinus rhythm...normal P axis, V-rate 60- 99 Ventricular premature complex...V complex w/ short R-R interval LVH with secondary repolarization abnormality...multi-LVH criteria, abnrm ST-T ST elevation secondary to LVH...Multiple VCG criteria motion artfact limits interpreation, possible st elevation but baseline wanders significantly due to movement
--- NOTE | 2024-04-22 16:30 | RT.EKG_ITS ---
APPROVED REPORT Exam: Resting ECG Reason for Exam: cp0 Patient Location: E HR:78 bpm ECG Measurements Heart Rate 78 AXIS TN 186 P 4 QRSd 119 QRS 66 QT 435 T 203 QTc 496 Conclusion Sinus rhythm...normal P axis, V-rate 60- 99 Probable LVH with secondary repol abnrm...multiple LVH criteria Probable inferior infarct, age indeterminate...Q>35mS, T neg, II III aVF
--- NOTE | 2024-04-22 16:35 | DI.CT_ITS ---
Exam(s) CT THORAX ABD/PEL CTA EXAM: CT THORAX ABD/PEL CTA CLINICAL HISTORY: pale, clammy, neck pain. TECHNIQUE: Imaging Protocol: Axial CT angiography was performed with multi-slice acquisition and m ulti-planar and/or 3D reconstructions. CONTRAST MATERIAL: Intravenous: Omnipaque 350 Contrast volume:structured data in ml Oral: no COMPARISON: CT CT CHEST PE CTA from 07/06/2023 FINDINGS: Exam limited by streak artifact related to patient arm positioning as well as body habitus. Some mot ion artifact also present. CHEST: Pulmonary Arteries: No evidence of filling defect to suggest pulmonary emboli. Tracheobronchial tree: Patent where visualized. Mediastinum and Nedra: No dominant adenopathy or fluid collection. Pulmonary parenchyma: No consolidation or dominant measurable mass. No architectural distortion. Pleura: No effusion or pneumothorax. Heart: The heart is not dilated. No coronary artery calcifications are seen. Aorta: Thoracic aorta non-dilated. Bones: Normal. Tubes, Catheters, and Lines: ABDOMEN AND PELVIS: Abdomen: Celiac axis/mesenteric arteries: No evidence of occlusion or significant stenosis. Renal Arteries: No evidence of occlusion or significant stenosis. Single right renal artery. Two le ft renal arteries. Aorta: No evidence of occlusion or significant stenosis. No aneurysm or dissection. Pelvis: Iliac Arteries: No evidence of occlusion or significant stenosis. Common Femoral Arteries: No evidence of occlusion or significant stenosis. ABDOMEN: Liver: Hepatic steatosis. No measurable mass. Portal, Superior Mesenteric, and Splenic Veins: Unremarkable. Gallbladder and Biliary Tract: No radiodense calculus or dilation. Pancreas: Normal density, no abnormal calcifications or inflammatory process. Spleen: Normal. Adrenals: Stable left adrenal adenoma. No follow-up recommended. Kidneys: Normal size, contour and axis. No radiodense stones or obstructive uropathy. No masses seen. Retroaortic left renal vein. Bowel: No obstruction or bowel wall thickening. Appendix is unremarkable. A normal quantity of stoo l. Peritoneal Cavity: No ascites, collection or mesenteric inflammatory response. Lymph Nodes: Within normal limits. Bones: Degenerative disc changes. Soft Tissues: Portions of the abdominal wall excluded from field of view. PELVIS: Bladder: Symmetric distention, no gross wall thickening. Reproductive Organs: Unremarkable as visualized. Lymph Nodes: Within normal limits. Bones: Within normal limits. IMPRESSION: Normal CT Angiogram of the chest, abdomen and pelvis. No evidence of pulmonary emboli. Hepatic steatosis. RADIATION DOSE DELIVERED: Total DLP DATA REPOSITORY: All CT scans at this facility are submitted to the National Radiology Data Registry (NRDR) Dose Index Registry (DIR) with the [employer] (ACR). RADIATION OPTIMIZATION: All CT scans at this facility use at least one of these dose optimization te chniques: automated exposure control; mA and/or kV adjustment per patient size (includes targeted exa ms where dose is matched to clinical indication); or iterative reconstruction.
--- NOTE | 2024-04-22 16:43 | ED.GENADUL_ITS ---
Discharge Plan Disposition Patient Disposition: Against Medical Advice Discharge Details Clinical Impression: Pain radiating to neck, Pre-syncope, Hypotension Primary Care Provider: Willam Huggins ED Provider: Annette Agudelo Home Meds and New Rx's Prescriptions: Continued amlodipine 5 mg tablet 5 mg PO DAILY Qty: 90 3RF chlorthalidone 25 mg tablet 25 mg PO DAILY Qty: 90 3RF valsartan [Diovan] 80 mg tablet 240 mg PO DAILY Qty: 270 3RF Jardiance 10 mg tablet 10 mg PO DAILY Qty: 90 3RF (DME) glucometer (as best covered) See Rx Instructions .Route .MEDSUPPLY Qty: 1 0RF Rx Instructions: Start monitoring AM (fasting) and PM (afternoon/evening) BG levels & bring log to PCP (DME) FreeStyle Lite Strips Strip See Rx Instructions .Route Qty: 100 3RF Rx Instructions: BID Testing to establish Tx plan, DM, A1C<7,E11.9 (DME) lancets [FreeStyle Lancets] 28 gauge misc See Rx Instructions .Route Qty: 100 3RF Rx Instructions: As directed Discharge Instructions Instructions: Near Fainting (DC) Additional Instructions: You have decided to leave AGAINST MEDICAL ADVICE. It is strongly advised that you stay to have cardiology consult. Please note that this puts you at risk of , permanent disability, loss of lifestyle, or other serious illness/disability. I encourage you to call your primary care provider first thing Wednesday morning to schedule an urgent follow up appointment. A referral has been placed to help f acilitate the process. Please note that you can return to emergency care at any time to finish the workup. Return to emergency care immediately if you develop new chest pain, shortness of breath, feeling of faintness, or if you have any new/concerning symptoms that you need to get checked out immediately. Referrals: Willam Huggins DO [Primary Care Provider] - Discharge Data Discharge Date/Time-TO BE ENTERED AT DEPARTURE: 04/22/24 22:03 HPI General Date/Time Provider Initiated Documentation: 04/22/24 16:32 . HPI Narrative: Karel is a 44-year-old male who presents to the emergency department today for evaluation of dizziness and neck/back pain. He reports that he was grilling approximately an hour before arrival with all of a sudden he felt he dizzy, his vision went white and felt like he was going to pass out. He sat down, deve loped pain between his shoulder blades that radiated up the left side of his neck. This is accompanied by diaphoresis and clamminess with headache (rated 4/10). He denies recent illness, chest pain, shortness of breath, nausea/vomiting, belly pain, change in bowel or bladder function, extremity weakness/paresthesias. He has recently been diagnosed with T2DM and CHF. No history of CA. He does have intermittent episodes of the back pain radiating up to his neck. Vision has since returned to normal after arrival to the emergency department. No recent surgery/immobility, calf redness/swelling/tenderness, history of blood clots, history of cancer. Physical exam remarkable for pale and diaphoretic patient appears uncomfortable. Easy work of breathing, lung sounds clear bilaterally. Normal heart sounds. Abdomen soft, nondistended, nontender to palpation. Equal radial pulses bilaterally. No pedal edema or calf redness/swelling/ warmth. Full painless range of motion of extremities. DDx includes but is not limited to: ACS, cardiac arrhythmia, aortic dissection, PE, dehydration, electrolyte imbalance, GERD, vasovagal near-syncope, intracranial hemorrhage. HEAR score 5, indicating moderate risk of MACE. I independently interpreted the following tests: CBC notable for mild leukocytosis, white cell count 12.95. CMP notable for elevated creatinine 1.7 today, increased from 1.0 previous. Potassium slightly low at 3.3. PTT, INR/PT, and serial troponins negative. EKG performed, normal sinus rhythm with rate 78, LVH noted, no changes consistent with acute ischemia, unchanged from previous. A repeat EKG was performed as patient had repeat of chest pain, no change from previous. Head CT performed, no acute intracranial findings. CTA chest/abdomen/pelvis reassuring. No acute findings noted. Only diffuse fatty liver noted. While in the emergency department Karel received IV fluids upon arrival for soft blood pressures and 25 mcg fentanyl with full improvement in symptoms. After fluids, he reported he felt 100% better, pallor and diaphoresis resolved. Overall workup today reassuring, unclear etiology of presycopal episode/dizziness with neck and back pain. A call was placed to [facility] cardiology for consult. However, while waiting consult, patient stated he wanted to go home and did not want to wait anymore. I explained the current situation and condition to the patient. I explained the recommendation for cardiology consult, including the risk of not having consult performed. He understands this information, has no questions, and repeated back this information. He acknowledges that he may have , serious disability or mental impairment, stroke, or other potentially devastating consequences. Patient states that he needs to leave and will follow-up with PCP on Wednesday. Mental status is lucid and patient has decision-making capacity. He chooses to leave AMA after discussion of risks versus benefits of staying in the emergency department for consult. Paperwork is signed. I did advise patient that he return to the emergency department at any time to finish workup. Related Data Home Medications ?Medication ?Instructions ?Recorded ?Confirmed glucometer (as best covered) #1 ea 01/24/24 04/22/24 blood sugar diagnostic (FreeStyle #100 ea 02/05/24 04/22/24 Lite Strips) lancets 28 gauge (FreeStyle #100 ea 02/05/24 04/22/24 Lancets) amlodipine 5 mg tablet 5 mg PO DAILY #90 tabs 03/16/24 04/22/24 chlorthalidone 25 mg tablet 25 mg PO DAILY #90 tabs 03/16/24 04/22/24 empagliflozin 10 mg tablet 10 mg PO DAILY #90 tabs 03/16/24 04/22/24 (Jardiance) valsartan 80 mg tablet (Diovan) 240 mg (3 x 80 mg) PO DAILY #270 03/16/24 04/22/24 tabs Previous Rx's ?Medication ?Instructions ?Recorded glucometer (as best covered) #1 ea 01/24/24 blood sugar diagnostic (FreeStyle #100 ea 02/05/24 Lite Strips) lancets 28 gauge (FreeStyle #100 ea 02/05/24 Lancets) amlodipine 5 mg tablet 5 mg PO DAILY #90 tabs 03/16/24 chlorthalidone 25 mg tablet 25 mg PO DAILY #90 tabs 03/16/24 empagliflozin 10 mg tablet 10 mg PO DAILY #90 tabs 03/16/24 (Jardiance) valsartan 80 mg tablet (Diovan) 240 mg (3 x 80 mg) PO DAILY #270 03/16/24 tabs Allergies Allergy/AdvReac Type Severity Reaction Status Date / Time hydrochlorothiazide Allergy Mild Dizziness/L Verified 03/16/24 13:11 ighthead Penicillins Allergy Mild Other (See Unverified 03/16/24 13:11 Comment) General Stated Complaint: AMS/LOC EFRAIN: 2 Review of Systems Narrative: see HPI Exam Const General: cooperative, anxious and diaphoretic Nutritional Appearance: obese Orientation: alert and oriented x3 Neck Neck: normal visual inspection and full ROM Carotids: no bruits Chest Chest: normal inspection of the chest Resp Effort & Inspection: normal respiratory effort and able to speak in complete sentences Auscultation: clear to auscultation bilaterally Cardio Jugular venous pressure: no JVD Rate: regular rate Rhythm: regular rhythm Pulses: radial pulses present and normal peripheral pulses GI Inspection: normal to inspection and non-distended Palpation: soft, not firm, not rigid and nontender Extrem General: full ROM, no pedal edema, no calf tenderness and normal gait Course Vital Signs Vital signs: Vital Signs Pulse 81 04/22/24 16:26 Pulse Oximetry 97 04/22/24 16:26 Temperature 36.0 C L 04/22/24 16:34 Pulse 81 04/22/24 16:26 Pulse 76 04/22/24 16:34 Respiratory Rate 17 04/22/24 16:34 Blood Pressure 78/49 L 04/22/24 16:34 Pulse Oximetry 91 L 04/22/24 16:34 Pain Level 0 04/22/24 16:26 Medical Decision Making Quality:SDOH Health Related Social Needs: No Data to Display PFSH All Active Problems (Updated 04/22/24 @ 21:29 by Annette Addison) Hypotension (Acute) Pre-syncope (Acute) Pain radiating to neck (Acute) Left ventricular hypertrophy (Acute) Mitral valve prolapse (Acute) Type II diabetes mellitus (Acute) Congestive heart failure (Chronic) Elevated liver enzymes (Acute) Anxiety and depression (Chronic) Restless leg syndrome (Acute) Insomnia (Acute) Hyperlipidemia (Acute) Nonalcoholic fatty liver (Acute) SOB (shortness of breath) on exertion (Acute) Cocaine abuse (Chronic) Pulmonary infiltrate (Acute) Obesity, morbid, BMI 40.0-49.9 (Acute) GERD (gastroesophageal reflux disease) (Chronic) Hypertension (Chronic) No-show for appointment (Acute) Medical History (Updated 04/22/24 @ 21:29 by Annette Addison) Sexual dysfunction Abscess of left forearm Cellulitis of left forearm Dog bite of left forearm with infection Hypertensive urgency Former tobacco use Quit 2006 Elevated LFTs Pneumonia Surgical History S/P tendon repair 3rd digit RUE Family History Mother Hypertension Father Hypertension Social History Smoking/Tobacco Use Status: Never Smoking risk assessment performed?: Yes Alcohol Intake: current Alcohol Intake frequency: a few times a week Alcohol type: beer Counseling given: Yes Counseling provided: reduce to 2 or less/day Drug use: Occasionally Substance use type: marijuana and crack/cocaine Details: States he no longer uses Housing: house Current gender identity: male Do you feel safe at home: Yes Do you feel safe in your relationship?: Yes
[2024-04-22] MEDS: fentaNYL 100 MCG/2 ML VIAL 25 MCG IVP (16:50)
[2024-04-22 16:51] LABS: Abs Immature Grans 0.07 10^3/uL (0.0-0.06); Absolute Basophil Count 0.08 10^3/uL (0.0-0.2); Absolute Eosinophil Count 0.22 10^3/uL (0.0-0.7); Absolute Monocyte Count 1.15 10^3/uL (0.1-0.8); Basophils % 0.6 %; Eosinophils % 1.7 %; HCT 46.1 % (40.0-50.0); Immature Grans % 0.5 %; Lymphocytes % 26.9 %; MCH 29.9 pg (27.0-33.0); MCHC 34.7 % (32.0-36.0); MCV 86 fL (80-95); MPV 9.8 fL (8.0-11.0); Monocytes % 8.9 %; Neutrophils % 61.4 %; Platelet Count 327 10^3/uL (130-400); RBC 5.35 10^6/uL (4.36-5.78); RDW 11.7 % (11.8-14.1); RDW-SD 37.1 fL; WBC 12.95 10^3/uL (4.4-10.8)
[2024-04-22 16:52] LABS: Absolute Lymphocyte Count 3.48 10^3/uL (1.2-3.4); Absolute Neutrophil Count 7.95 10^3/uL (1.2-6.7)
[2024-04-22 17:04] LABS: INR 1.1 (0.9-1.1); Prothrombin Time 10.7 sec (9.1-11.1)
[2024-04-22 17:13] LABS: ALT 129 U/L (16-63); AST 61 U/L (15-37); Albumin 3.8 g/dL (3.4-5.0); Alkaline Phosphatase 101 U/L (46-116); Anion Gap 15.5 mmol/L (3-11); BUN 16 mg/dL (7-18); Bilirubin, Total 0.58 mg/dL (0.2-1.0); CO2 25.5 mmol/L (21.0-32.0); CREATININE 1.7 mg/dL (0.70-1.30); Calcium 9.9 mg/dL (8.5-10.1); Chloride 99 mmol/L (98-107); Estimated GFR 50.98 (mL/min/1.73m2); Glucose 196 mg/dL (74-106); Magnesium 1.9 mg/dL (1.8-2.4); Potassium 3.3 mmol/L (3.5-5.1); Sodium 140 mmol/L (136-145); Total Protein 7.7 g/dL (6.4-8.2); Troponin I < 50 ng/L (< or =60)
--- NOTE | 2024-04-22 17:15 | DI.CT_ITS ---
Exam(s) CT HEAD WO EXAM: CT HEAD WO CLINICAL HISTORY: headache with neck pain and back pain. TECHNIQUE: Imaging Protocol: Axial computed tomography images with coronal and sagittal reformatted images were created and reviewed COMPARISON: No exams were available for comparison FINDINGS: Ventricles and Extra axial spaces: Normal in size and morphology for the patient's age. Hemorrhage: None. Cerebral parenchyma: No evidence of acute infarct or mass. Midline shift: None. Brainstem/Cerebellum: Normal. Calvarium: Normal. Visualized Paranasal sinuses:Mucous retention cyst floor of left maxillary sinus. Mastoids: Clear. Soft Tissues: Unremarkable. ORBITS: Unremarkable. PITUITARY: Not enlarged. IMPRESSION: No acute intracranial process. RADIATION DOSE DELIVERED: Total DLP DATA REPOSITORY: All CT scans at this facility are submitted to the National Radiology Data Registry (NRDR) Dose Index Registry (DIR) with the [employer] (ACR). RADIATION OPTIMIZATION: All CT scans at this facility use at least one of these dose optimization te chniques: automated exposure control; mA and/or kV adjustment per patient size (includes targeted exa ms where dose is matched to clinical indication); or iterative reconstruction.
[2024-04-22] MEDS: Normal Saline 1,000 ML 1000 ML IV (17:19)
[2024-04-22] MEDS: Normal Saline - Diluent 50 ML VIAL IJ (17:41)
[2024-04-22] MEDS: Omnipaque 350 MG/ML 100 ML BTL IJ (17:42)
[2024-04-22 18:15] LABS: Lab Add On Test DONE
[2024-04-22 18:16] LABS: BE (Venous) 1 mmol/L (-2-3); HCO3 (Venous) 26 mmol/L (23-28); O2 Sat (Venous) 95 %; TCO2 (Venous) 23 mmol/L (24-29); pCO2 (Venous) 40 mmHg (41-51); pH (Venous) 7.42 (7.31-7.41); pO2 (Venous) 70 mmHg
--- NOTE | 2024-04-22 18:53 | DI.VRAD_ITS ---
PROCEDURE INFORMATION: Exam: CT Head Without Contrast Exam date and time: 04/22/2024 5:47 PM Age: 44 years old Clinical indication: Other: Headache with neck pain and back pain TECHNIQUE: Imaging protocol: Computed tomography of the head without contrast. Radiation optimization: All CT scans at this facility use at least one of these dose optimization techniques: automated exposure control; mA and/or kV adjustment per patient size (includes targeted exams where dose is matched to clinical indication); or iterative reconstruction. COMPARISON: No relevant prior studies available. FINDINGS: Brain: No edema or hemorrhage. Cerebral ventricles: No ventriculomegaly. Paranasal sinuses: Benign appearing likely retention cyst in the left maxillary sinus. Mastoid air cells: No mastoid effusion. Bones: No acute fracture. Soft tissues: No suspicious lesions. IMPRESSION: No acute intracranial findings. Dictated and Authenticated by: Ronit Javed MD. Ordering:MARYA Bryant MD
--- NOTE | 2024-04-22 19:20 | DI.VRAD_ITS ---
PROCEDURE INFORMATION: Exam: CTA Chest With Contrast CTA Abdomen and Pelvis With Contrast Exam date and time: 04/22/2024 5:52 PM Age: 44 years old Clinical indication: Other: Pale, clammy, neck pain TECHNIQUE: Imaging protocol: Computed tomographic angiography of the chest with contrast. Exam focused on the arteries. Computed tomographic angiography of the abdomen and pelvis with contrast. Exam focused on the arteries. 3D rendering (Not supervised by radiologist): MIP and/or 3D reconstructed images were created by the technologist. Radiation optimization: All CT scans at this facility use at least one of these dose optimization techniques: automated exposure control; mA and/or kV adjustment per patient size (includes targeted exams where dose is matched to clinical indication); or iterative reconstruction. Contrast material: OMNI 350; Contrast volume: 100 ml; Contrast route: INTRAVENOUS (IV); COMPARISON: CT CHEST PE CTA 07/06/2023 11:39 AM FINDINGS: Limitations: Extensive streak artifact, created at least in part by arm positioning. Motion artifact. Examination degraded by diffuse technical artifact. Low oplexc-jr-yjamf ratio with limited resolution. VASCULATURE: Pulmonary arteries: Exam not tailored to evaluate the pulmonary arterial vasculature. Within the limits of the exam, no large central pulmonary embolism demonstrated in the pulmonary trunk or main pulmonary arteries. Aorta: No thoracic or abdominal aortic aneurysm or dissection. Celiac trunk and mesenteric arteries: Celiac, superior mesenteric, and inferior mesenteric arteries widely patent. Renal arteries: Main right renal artery widely patent. Suggestion of a tiny accessory artery to the right upper pole, best demonstrated by the coronal series, not well evaluated, but grossly patent as seen. Main left renal artery widely patent. Accessory artery to the left upper pole, also widely patent. Right iliac arteries: Right common iliac, internal iliac, and external iliac arteries widely patent. Right femoral/popliteal arteries: Right common femoral and visualized proximal right superficial femoral arteries widely patent. Left iliac arteries: Left common iliac, internal iliac, and external iliac arteries widely patent. Left femoral/popliteal arteries: Left common femoral and visualized proximal left superficial femoral arteries widely patent. Veins: Retroaortic left renal vein, anatomic variant. Thyroid: Thyroid gland partially excluded from view but grossly unremarkable through its visualized portion. CHEST: Lungs: Lung robles somewhat obscured by motion artifact. No pulmonary consolidation. Pleural spaces: No pleural effusion or pneumothorax. Heart: Overall normal-sized heart. ABDOMEN AND PELVIS: Liver: Diffuse fatty infiltration of the liver. Gallbladder and biliary ducts: [id number] moderately distended. No calcified gallstones or biliary dilatation. Pancreas: Normal appearing pancreas. Spleen: Spleen partially obscured by artifact but grossly unremarkable, as seen. Adrenal glands: Normal-appearing indeterminate right adrenal gland. 1.8 cm left adrenal nodule with a density of 19 Hounsfield units on image 66 of series 8, measuring 7 Hounsfield units density on the comparison exam from July 06, 2023 suggesting an adenoma. Kidneys and ureters: Kidneys partially obscured by artifact but grossly unremarkable, as seen. No obstructing ureteral stones. Stomach and bowel: No oral contrast. Stomach partially decompressed. No small bowel dilatation to suggest obstruction. Normal-appearing colon. No evidence of diverticulitis or colitis. Appendix: Normal appendix. Intraperitoneal space: No gross ascites or free air. Urinary bladder: Normal appearing urinary bladder. Reproductive: Normal-appearing prostate gland and seminal vesicles. Lymph nodes: No pathologically enlarged mediastinal or hilar lymph nodes. No pathologically enlarged mesenteric, retroperitoneal, or pelvic sidewall lymph nodes. Bones/joints: No acute fracture seen among the bones of the chest, abdomen, or pelvis. Spinal degenerative change with endplate irregularities and small Schmorl's nodes at several levels. Congenital lumbar stenosis. Soft tissues: No gross soft tissue mass or fluid collection seen in the chest wall. Abdominal wall partially excluded from view and not evaluated.Tiny fat-containing ventral hernia at the umbilicus, doubtful clinical significance. IMPRESSION: 1. No thoracic or abdominal aortic aneurysm or dissection. 2. Diffuse fatty infiltration of the liver. Dictated and Authenticated by: Phil Hughes MD. Ordering:MARYA Bryant MD
[2024-04-22 20:28] LABS: Troponin I < 50 ng/L (< or =60)
--- NOTE | 2024-04-23 00:07 | NUR.NOTE ---
Referral faxed to YOHAN Huggins to f/u 04/24/24 for neck pain, near syncope.Nursing Note:
--- NOTE | 2024-04-24 07:18 | NUR.NOTE ---
Access chart to reconcile EKG orders and EKG's in [facility]. Duplicate orders cancelled. Nursing Note:
--- NOTE | 2024-04-29 08:15 | NUR.NOTE ---
Access chart to reconcile EKG orders to the EKGs in [facility]. 1 order still Active. Nursing Note:
--- NOTE | 2024-05-02 08:45 | NUR.NOTE ---
Addendum entered by Toya Monique 05/11/24 09:40: Access chart again to review EKG issues. Original Note: Access chart to reconcile EKG's. Nursing Note:
== END 2024-04-22 22:03 | disposition left against medical advice (07) ==
PROVIDERS: Emergency Provider Nurse Practitioner Family; PCP Family Medicine
DX: R55 Syncope and collapse; M54.2 Cervicalgia; I95.9 Hypotension, unspecified; E11.9 Type 2 diabetes mellitus without complications; I50.9 Heart failure, unspecified; Z53.29 Procedure and treatment not carried out because of patient's decision for other reasons
CPT/HCPCS: 36415; 71275; 80053; 82805; 82962; 93005; 96361; 96374; 99285; 70450; 74174; 83735; 84484; 85025; 85610; 85730; 93010; 99284; J3010; J3490

== ENCOUNTER 2024-05-12 13:03 | Outpatient (CLI) | payer OTHER, SELFPAY | END 2024-05-12 13:04 | disposition home or self-care (01) | PROVIDERS: PCP Family Medicine; Visit Provider Nurse Practitioner Family | DX: R55 Syncope and collapse (principal) | CPT/HCPCS: 93246 ==

== ENCOUNTER 2024-05-17 02:51 | Outpatient (CLI) | payer OTHER, SELFPAY ==
[2024-05-17 08:50] LABS: Calculated LDL 177 mg/dL (<100); Cholesterol 226 mg/dL (<200); HDL Cholesterol 25 mg/dL (40-60); Triglyceride 123 mg/dL (<150)
== END 2024-05-17 02:52 | disposition home or self-care (01) ==
PROVIDERS: Nurse Practitioner Family; PCP Family Medicine; Visit Provider Family Medicine
DX: E11.9 Type 2 diabetes mellitus without complications (principal); E78.5 Hyperlipidemia, unspecified
CPT/HCPCS: 36415; 80061

== ENCOUNTER 2024-07-04 08:05 | Outpatient (CLI) | payer OTHER, SELFPAY | END 2024-07-04 08:06 | disposition home or self-care (01) | PROVIDERS: PCP Family Medicine; Visit Provider Internal Medicine Cardiovascular Disease | CPT/HCPCS: 93010 ==

== ENCOUNTER 2025-01-01 14:51 | Emergency (ER) | payer OTHER, SELFPAY ==
[2025-01-01 14:52] VITALS: BP 178/120; PULSE 114; RESP 16; TEMP 36.4; O2SAT 98
--- NOTE | 2025-01-01 15:15 | DI.RAD_ITS ---
Exam(s) XR HAND RT COMPLETE EXAM: XR HAND RT COMPLETE CLINICAL HISTORY: pain/swelling s/p punch wall 3d ago. TECHNIQUE: 2D digital imaging was performed. Three views. COMPARISON: No exams were available for comparison FINDINGS: BONES: No acute fracture is present. No bony destructive lesion is seen. JOINTS: No dislocation present. Mild degenerative changes of the distal interphalangeal joints of the 2nd and 3rd fingers. SOFT TISSUE: Marked soft tissue swelling at the dorsal aspect of the hand. No foreign body or abnorm al gas collection. On punctate high-density material in the volar aspect of the distal phalanx of th e 3rd finger which may be related to an old injury. A few tiny densities are noted in the distal rin g finger soft tissues. IMPRESSION: Marked soft tissue swelling. No evidence of acute fracture or foreign body. DATA REPOSITORY: RADIATION DOSE DELIVERED:
--- NOTE | 2025-01-01 15:24 | ED.GENADUL_ITS ---
Discharge Plan Disposition Patient Disposition: Against Medical Advice Condition: Stable Discharge Details Clinical Impression: Cellulitis of hand, right Primary Care Provider: Willam Huggins ED Provider: Aaron Foley Home Meds and New Rx's Prescriptions: New cephalexin 500 mg tablet 500 mg PO QID Qty: 28 0RF sulfamethoxazole-trimethoprim [Bactrim DS] 800-160 mg tablet 1 tab PO BID Qty: 14 0RF Continued amlodipine 5 mg tablet 5 mg PO DAILY Qty: 90 3RF chlorthalidone 25 mg tablet 25 mg PO DAILY Qty: 90 3RF valsartan [Diovan] 80 mg tablet 240 mg PO DAILY Qty: 270 3RF Jardiance 10 mg tablet 10 mg PO DAILY Qty: 90 3RF (DME) glucometer (as best covered) See Rx Instructions .Route .MEDSUPPLY Qty: 1 0RF Rx Instructions: Start monitoring AM (fasting) and PM (afternoon/evening) BG levels & bring log to PCP (DME) FreeStyle Lite Strips Strip See Rx Instructions .Route Qty: 100 3RF Rx Instructions: BID Testing to establish Tx plan, DM, A1C<7,E11.9 (DME) lancets [FreeStyle Lancets] 28 gauge misc See Rx Instructions .Route Qty: 100 3RF Rx Instructions: As directed Discharge Instructions Instructions: High-potassium diet Additional Instructions: Your x-rays do not show any concerning findings at this time. Your potassium level is mildly low and you can try increasing this in your diet. Follow-up with your primary care provider as machine improving within a week. If you feel significantly more ill or have new symptoms such as high fevers return to the emergency department for reevaluation. HPI General Mode of arrival: ambulatory . Date/Time Provider Initiated Documentation: 01/01/25 14:59 . Limitations to Documentation: no limitations . Information obtained by: patient . History of Present Illness 44 year old M presents to the emergency department with the chief complaint of right hand pain/swelling/redness s/p punching wall 3 days ago, described as moderate, Quality is described as aching, Patient started experiencing this day(s) (3) and it has been constant. No relieving factors improve symptom(s), No exacerbating factors reported . Patient notes no other symptoms.. Patient did receive the following treatments prior to arrival, none Related Data Home Medications ?Medication ?Instructions ?Recorded ?Confirmed glucometer (as best covered) #1 ea 01/24/24 01/01/25 blood sugar diagnostic (FreeStyle #100 ea 02/05/24 01/01/25 Lite Strips) lancets 28 gauge (FreeStyle #100 ea 02/05/24 01/01/25 Lancets) amlodipine 5 mg tablet 5 mg PO DAILY #90 tabs 03/16/24 01/01/25 chlorthalidone 25 mg tablet 25 mg PO DAILY #90 tabs 03/16/24 04/28/24 empagliflozin 10 mg tablet 10 mg PO DAILY #90 tabs 03/16/24 01/01/25 (Jardiance) valsartan 80 mg tablet (Diovan) 240 mg (3 x 80 mg) PO DAILY #270 03/16/24 01/01/25 tabs cephalexin 500 mg tablet 500 mg PO QID #28 tabs 01/01/25 sulfamethoxazole 800 1 tab PO BID #14 tabs 01/01/25 mg-trimethoprim 160 mg tablet (Bactrim DS) Previous Rx's ?Medication ?Instructions ?Recorded glucometer (as best covered) #1 ea 01/24/24 blood sugar diagnostic (FreeStyle #100 ea 02/05/24 Lite Strips) lancets 28 gauge (FreeStyle #100 ea 02/05/24 Lancets) amlodipine 5 mg tablet 5 mg PO DAILY #90 tabs 03/16/24 chlorthalidone 25 mg tablet 25 mg PO DAILY #90 tabs 03/16/24 empagliflozin 10 mg tablet 10 mg PO DAILY #90 tabs 03/16/24 (Jardiance) valsartan 80 mg tablet (Diovan) 240 mg (3 x 80 mg) PO DAILY #270 03/16/24 tabs cephalexin 500 mg tablet 500 mg PO QID #28 tabs 01/01/25 sulfamethoxazole 800 1 tab PO BID #14 tabs 01/01/25 mg-trimethoprim 160 mg tablet (Bactrim DS) Allergies Allergy/AdvReac Type Severity Reaction Status Date / Time hydrochlorothiazide Allergy Mild Dizziness/L Verified 01/01/25 14:57 ighthead Penicillins Allergy Mild Other (See Unverified 01/01/25 14:57 Comment) General Stated Complaint: Cellulitis EFRAIN: 3 Review of Systems All systems reviewed & are unremarkable except as noted in HPI and below Constitutional Constitutional: Denies chills, Denies fever(s) and Denies weakness Eyes Eyes: Denies loss of vision ENT Ears, Nose, Mouth, and Throat: Denies change in voice Cardiovascular Cardiovascular: Denies chest pain and Denies dyspnea Respiratory Respiratory: Denies cough and Denies dyspnea Gastrointestinal Gastrointestinal: Denies abdominal pain, Denies nausea and Denies vomiting Integumentary/Breasts Skin/Breast: Reports rash Neurologic Neurologic: Denies loss of vision and Denies weakness Exam Const General: no acute distress Orientation: alert HENMT Head: normal to inspection Ears: external ears normal General nose exam: external nose normal Mouth: moist mucous membranes Eyes General: appearance normal, both eyes and all related structures Neck Neck: normal visual inspection Resp Effort & Inspection: normal respiratory effort and able to speak in complete sentences Cardio Rate: regular rate Skin General skin exam: erythema Neuro General: patient alert and patient oriented x3 Extrem General: full ROM and capillary refill normal Psych Mental Status: mental status grossly normal Course Vital Signs Vital signs: Vital Signs Temperature 36.4 C 01/01/25 14:52 Pulse 114 H 01/01/25 14:52 Respiratory Rate 16 01/01/25 14:52 Blood Pressure 178/120 H 01/01/25 14:52 Pulse Oximetry 98 01/01/25 14:52 Temperature 36.4 C 01/01/25 14:52 Temperature Source Oral 01/01/25 14:52 Pulse 114 H 01/01/25 14:52 Respiratory Rate 16 01/01/25 14:52 Blood Pressure 178/120 H 01/01/25 14:52 Blood Pressure Position Sitting 01/01/25 14:52 Pulse Oximetry 98 01/01/25 14:52 Oxygen Delivery Method Room Air 01/01/25 14:52 Oxygen Flow Rate 0 01/01/25 14:52 Comment BP taken twice. 01/01/25 14:52 Medical Decision Making 44-year-old male comes in after he punched a wall 3 days ago and sustained a laceration on the posterior right hand comes in with increased pain, redness and swelling of the hand. Denies any severe pain or fevers. He has swelling and erythema of his entire posterior hand with a 2 cm superficial laceration over the posterior hand just inferior to the ring and pinky fingers and runs horizontally. There is no discharge. Has tenderness in this area. He does have full range of motion of the fingers with intact sensation and cap refill. No pain in the wrist. Exam is consistent with a cellulitis, will obtain x-rays to evaluate for underlying fracture and check CBC, CMP and inflammatory markers and also give a dose of ceftriaxone while this is pending. X-ray is unremarkable for fracture, he did note he was having a cough as well so a chest x-ray was ordered which was negative. Has a mild leukocytosis and also elevated inflammatory markers. I did recommend admission for IV antibiotics, patient has clinical decision-making capacity and is declining admission for IV antibiotics and understands the risks of leaving including worsening infection and potential for loss of limb, and permanent disability which he accepts. He is leaving AGAINST MEDICAL ADVICE. He was advised that he can return if he changes his mind and I did recommend he follow-up with his PCP as soon as possible. Differential Diagnosis Differential Diagnosis: Fracture, cellulitis Quality:SDOH Health Related Social Needs: Health related social needs housing instability, house d, with risk of homelessness (Z59.811) Health related social needs details Domestic issues PFSH All Active Problems (Updated 01/01/25 @ 17:16 by Aaron Foley MD) Cellulitis of hand, right (Acute) Left ventricular hypertrophy (Acute) Mitral valve prolapse (Acute) Type II diabetes mellitus (Acute) Congestive heart failure (Chronic) Elevated liver enzymes (Acute) Anxiety and depression (Chronic) Restless leg syndrome (Acute) Insomnia (Acute) Hyperlipidemia (Acute) Nonalcoholic fatty liver (Acute) SOB (shortness of breath) on exertion (Acute) Cocaine abuse (Chronic) Pulmonary infiltrate (Acute) Obesity, morbid, BMI 40.0-49.9 (Acute) GERD (gastroesophageal reflux disease) (Chronic) Hypertension (Chronic) No-show for appointment (Acute) Medical History (Updated 01/01/25 @ 17:16 by Aaron Foley MD) Dizziness Sexual dysfunction Abscess of left forearm Cellulitis of left forearm Dog bite of left forearm with infection Hypertensive urgency Former tobacco use Quit 2006 Elevated LFTs Pneumonia Surgical History S/P tendon repair 3rd digit RUE Family History Mother Hypertension Father Hypertension Social History Smoking/Tobacco Use Status: Never Smoking risk assessment performed?: Yes Alcohol Intake: current Alcohol Intake frequency: a few times a week Alcohol type: beer Counseling given: Yes Counseling provided: reduce to 2 or less/day Drug use: Occasionally Substance use type: marijuana and crack/cocaine Details: States he no longer uses Housing: house Current gender identity: male Do you feel safe at home: Yes Do you feel safe in your relationship?: Yes PAWSS Have you Been Recently Intoxicated or Drunk Within the Last 30 days?: No Have you Ever Experienced Previous Episodes of Alcohol Withdrawal?: No Have you ever Experienced Withdrawal Seizures?: No Have you ever Experienced Delirium Tremens(DT)s?: No Have you ever undergone Alcohol Rehabilitation Treatment (i.e, inpt ot outpatient treatment programs)?: No Have you ever Experienced Blackouts?: No Have you ever Combined Alcohol with other Downers within the last 90 days?: No Have you ever Combined Alcohol with any other Substance of Abuse during the last 90 days?: No Positive Blood Alcohol level on Presentation? [PCS.BAL]: No Evidence of Increased Autonomic Activity (i.e. HR>120, tremor, sweating, agitation, nausea)?: No Result: 0
--- NOTE | 2025-01-01 15:45 | DI.RAD_ITS ---
Exam(s) XR CHEST 2V PA LATERAL EXAM: XR CHEST 2V PA LATERAL CLINICAL HISTORY: cough TECHNIQUE: 2D digital imaging was performed. Two views. COMPARISON: CT CT CHEST PE CTA from 07/06/2023 FINDINGS: HEART: Normal size. Aorta: Not dilated. PULMONARY VASCULATURE: Normal. MEDIASTINUM: Unremarkable. LUNGS: Clear. PLEURAL SPACE: No pleural effusion or pneumothorax. BONE:Unremarkable for age. SOFT TISSUES: Unremarkable. IMPRESSION: No acute abnormality. DATA REPOSITORY: RADIATION DOSE DELIVERED:
[2025-01-01 16:00] LABS: Abs Immature Grans 0.06 10^3/uL (0.0-0.06); Absolute Basophil Count 0.06 10^3/uL (0.0-0.2); Absolute Eosinophil Count 0.14 10^3/uL (0.0-0.7); Absolute Lymphocyte Count 1.75 10^3/uL (1.2-3.4); Absolute Monocyte Count 1.14 10^3/uL (0.1-0.8); Absolute Neutrophil Count 8.33 10^3/uL (1.2-6.7); Basophils % 0.5 %; Eosinophils % 1.2 %; HCT 42.5 % (40.0-50.0); HGB 14.7 g/dL (13.5-17.5); Immature Grans % 0.5 %; Lymphocytes % 15.3 %; MCH 30.6 pg (27.0-33.0); MCHC 34.6 % (32.0-36.0); MCV 89 fL (80-95); MPV 9.8 fL (8.0-11.0); Monocytes % 9.9 %; Neutrophils % 72.6 %; Platelet Count 296 10^3/uL (130-400); RDW 11.9 % (11.8-14.1); WBC 11.47 10^3/uL (4.4-10.8)
[2025-01-01 16:01] LABS: ESR 31 mm/hr (0-15)
[2025-01-01 16:15] LABS: ALT 78 U/L (16-63); AST 29 U/L (15-37); Albumin 3.7 g/dL (3.4-5.0); Alkaline Phosphatase 103 U/L (46-116); Anion Gap 5.8 mmol/L (3-11); BUN 9 mg/dL (7-18); Bilirubin, Total 1.5 mg/dL (0.2-1.0); C-Reactive Protein 8.41 mg/dL (<or=0.5); CO2 30.2 mmol/L (21.0-32.0); CREATININE 0.9 mg/dL (0.70-1.30); Chloride 101 mmol/L (98-107); Estimated GFR 109.36 (mL/min/1.73m2); Glucose 233 mg/dL (74-106); Sodium 137 mmol/L (136-145); Total Protein 7.7 g/dL (6.4-8.2)
== END 2025-01-01 17:41 | disposition left against medical advice (07) ==
LOC: ER 17:18
PROVIDERS: Emergency Provider Emergency Medicine; PCP Family Medicine
DX: L03.113 Cellulitis of right upper limb (principal); E11.9 Type 2 diabetes mellitus without complications; Z79.85 Long-term (current) use of injectable non-insulin antidiabetic drugs; Z53.29 Procedure and treatment not carried out because of patient's decision for other reasons
CPT/HCPCS: 80053; 85652; 96365; 99284; 71046; 73130; 85025; 86140; 99283; J0690